=== PATIENT | male | born 1950 | race American Indian/Alaskan Native ===

== ENCOUNTER 2017-10-25 09:18 | Outpatient (CLI) | payer MEDICARE ==
--- NOTE | 2017-10-25 11:26 | XRay Report ---
FINAL REPORT EXAM: XR TOE(S) 2+V LT HISTORY: GREAT TOE PAIN COMPARISON: None. TECHNIQUE: Three views of the left great toe including a frontal view of the foot FINDINGS: There is no acute fracture or dislocation. There is DIP and PIP joint space narrowing with associated hypertrophic changes. There is no focal loss of bone mineral density. There is irregularities of the soft tissues of the dorsal aspect of the great toe concerning for injury. IMPRESSION: No acute bony abnormality of the left great toe. No radiographic evidence for osteomyelitis.
== END 2017-10-25 09:19 | disposition home or self-care (01) ==
LOC: XRAY 09:18
DX: M79.675 Pain in left toe(s) (principal); I10 Essential (primary) hypertension; E78.5 Hyperlipidemia, unspecified; E78.00 Pure hypercholesterolemia, unspecified; K21.9 Gastro-esophageal reflux disease without esophagitis; Z87.891 Personal history of nicotine dependence

== ENCOUNTER 2018-12-24 18:23 | Emergency (ER) | payer MEDICARE ==
--- NOTE | 2018-12-24 18:50 | Event Note ---
ED Screening Note Date of service: 12/24/18 Time: 18:50 ED Screening Note: c/o low back pain x 8 days and constipation x 3 days. Denies loss of bladder control. Denies specific back injury, but admits to a great deal of heayy lifting at work. States diclofenac and flexeril not helping. Hx of colon cancer. Denies abdominal pain This initial assessment/diagnostic orders/clinical plan/treatment(s) is/are subject to change based on patients health status, clinical progression and re-assessment by fellow clinical providers in the ED. Further treatment and workup at subsequent clinical providers discretion. Patient/guardian urged not to elope from the ED as their condition may be serious if not clinically assessed and managed. Initial orders include:
[2018-12-24] MEDS ORDERED: CATAPRES PO ONE (21:21)
[2018-12-24] MEDS ORDERED: TYLENOL #3 PO ONE (21:21)
[2018-12-24 21:59] VITALS: BP 223/113
[2018-12-24 21:59] LABS: Hematocrit 43.2 % (35.5-45.6); Hemoglobin 14.1 gm/dl (11.8-15.2); Mean Corpuscular HGB Conc 33 % (32-34); Mean Corpuscular Volume 93 fl (84-94); Platelet Count 651 K/mm3 (140-440); Red Blood Count 4.63 M/mm3 (3.65-5.03); Red Cell Distribution Width 19.7 % (13.2-15.2)
[2018-12-24 22:10] LABS: Albumin 4.1 g/dL (3.9-5); Calcium 9.5 mg/dL (8.4-10.2)
[2018-12-24] MEDS ORDERED: NACL 0.9% 1000 ML 1,000 ML IV ONE (22:31)
[2018-12-24] MEDS ORDERED: KIONEX PO ONE (22:32)
--- NOTE | 2018-12-24 22:38 | XRay Report ---
ABDOMEN 1 VIEW(S) INDICATION / CLINICAL INFORMATION: abd pain. COMPARISON: None available. FINDINGS: TUBES / LINES: None. BOWEL GAS PATTERN: No significant abnormality. FREE AIR / EXTRALUMINAL GAS: None seen. ADDITIONAL FINDINGS: There is moderate stool in the colon suggesting constipation. The colon is not d ilated however. IMPRESSION: 1. Possible constipation. Signer Name: Diogenes Bernard MD Signed: 12/24/2018 10:33 PM Workstation Name: [id number]
--- NOTE | 2018-12-24 23:57 | Emergency Department Report ---
ED Abdominal Pain HPI - General Chief Complaint: Back Pain/Injury Stated Complaint: BACK PAIN/CONSTIPATION Time Seen by Provider: 12/24/18 21:17 Source: patient Mode of arrival: Ambulatory Limitations: No Limitations - History of Present Illness Initial Comments: PT is a 68 y/o aam who presents for low back pain x 8 days and constipation x 3 days. Denies loss of bladder control. Denies specific back injury, but admits to a great deal of heayy lifting at work. States diclofenac and flexeril not helping as prescribed by pcp. Hx of colon cancer. Denies abdominal pain , endorses abd cramping and feeling constipated , last bm this morning described as "little rabbit pellets" Complaint: abdominal pain Onset/Timin -: week(s) Location: LLQ, RLQ Radiation: LLQ, RLQ Migration to: LLQ, RLQ Severity scale (0 -10): 7 Quality: cramping Consistency: intermittent Improves With: nothing Worsens With: nothing Context: other (constipation) Associated Symptoms: constipation. denies: nausea, vomiting, fever, chills, dysuria, melena - Related Data Home Medications Medication Instructions Recorded Confirmed Last Taken AtorvaSTATin [Lipitor] 10 mg PO DAILY 04/25/16 04/25/16 04/25/16 Blood Sugar Diagnostic [One Touch 1 each MC DAILY 04/25/16 04/25/16 04/25/16 Ultra Test Strips] Fluticasone Propionate [Flovent 50 mcg INNOSTRIL DAILY 04/25/16 04/25/16 04/25/16 Diskus] Insulin Glargine,Hum.rec.anlog 0 units SQ QHS 04/25/16 04/25/16 04/24/16 [Lantus Solostar] Insulin Lispro [Humalog Kwikpen 10 units SQ AC 04/25/16 04/25/16 04/24/16 200 UNITS/ML] Iron Fum,Ps/Folic/Bcomp,C No.9 1 each PO DAILY 04/25/16 04/25/16 04/25/16 [Integra Plus Capsule] Omeprazole 40 mg PO DAILY 04/25/16 04/25/16 04/25/16 Sildenafil Citrate [Viagra] 100 mg PO QDAY PRN 04/25/16 04/25/16 Unknown Sitagliptin Phosphate [Januvia] 50 mg PO DAILY 04/25/16 04/25/16 04/25/16 hydrALAZINE [Apresoline] 25 mg PO Q12HR 04/25/16 04/25/16 04/25/16 Previous Rx's Medication Instructions Recorded Last Taken Type Metoprolol [Lopressor TAB] 50 mg PO QDAY #30 tablet 07/29/13 04/25/16 Rx Aspirin 81 mg PO QDAY #30 tablet 04/26/16 Unknown Rx predniSONE [Deltasone] 60 mg PO QDAY 5 Days tablet 04/26/16 Unknown Rx valACYclovir [Valtrex] 1,000 mg PO TID 5 Days tablet 04/26/16 Unknown Rx Bisacodyl [Dulcolax suppos] 10 mg LA DAILY PRN #6 supp.rect 12/25/18 Unknown Rx Polyethylene Glycol 3350 [Miralax 17 gm PO BID PRN #14 packet 12/25/18 Unknown Rx 3350] amLODIPine [Norvasc] 10 mg PO DAILY #30 12/25/18 Unknown Rx Allergies Allergy/AdvReac Type Severity Reaction Status Date / Time No Known Allergies Allergy Verified 04/25/16 13:44 ED Review of Systems ROS: Stated complaint: BACK PAIN/CONSTIPATION Other details as noted in HPI Constitutional: denies: chills, fever Eyes: denies: eye pain, eye discharge, vision change ENT: denies: ear pain, throat pain Respiratory: denies: cough, shortness of breath, wheezing Cardiovascular: denies: chest pain, palpitations Endocrine: no symptoms reported Gastrointestinal: constipation. denies: nausea, vomiting, diarrhea, melena, hematochezia Genitourinary: denies: urgency, dysuria, frequency Musculoskeletal: back pain, arthralgia Skin: denies: rash, lesions Neurological: denies: headache, weakness, paresthesias Psychiatric: denies: anxiety, depression Hematological/Lymphatic: denies: easy bleeding, easy bruising ED Past Medical Hx - Past Medical History Previous Medical History?: Yes Hx Hypertension: Yes Hx Heart Attack/AMI: No Hx Congestive Heart Failure: No Hx Diabetes: Yes Hx Deep Vein Thrombosis: No Hx Pulmonary Embolism: No Hx GERD: No Hx Liver Disease: No Hx Renal Disease: No Hx Sickle Cell Disease: No Hx Arthritis: No Hx Seizures: No Hx Kidney Stones: No Hx Asthma: No Hx COPD: No Hx Tuberculosis: No Hx Dementia: No Hx HIV: No Additional medical history: COLON CANCER - Surgical History Hx Coronary Stent: No Hx Open Heart Surgery: No Hx Pacemaker: No Hx Internal Defibrillator: No Hx Cholecystectomy: No Hx Appendectomy: No Hx Breast Surgery: No Additional Surgical History: COLON REMOVED - Social History Smoking Status: Never Smoker Substance Use Type: Alcohol - Medications Home Medications: Home Medications Medication Instructions Recorded Confirmed Last Taken Type Metoprolol [Lopressor TAB] 50 mg PO QDAY #30 tablet 07/29/13 04/25/16 04/25/16 Rx AtorvaSTATin [Lipitor] 10 mg PO DAILY 04/25/16 04/25/16 04/25/16 History Blood Sugar Diagnostic [One Touch 1 each MC DAILY 04/25/16 04/25/16 04/25/16 History Ultra Test Strips] Fluticasone Propionate [Flovent 50 mcg INNOSTRIL DAILY 04/25/16 04/25/16 04/25/16 History Diskus] Insulin Glargine,Hum.rec.anlog 0 units SQ QHS 04/25/16 04/25/16 04/24/16 History [Lantus Solostar] Insulin Lispro [Humalog Kwikpen 10 units SQ AC 04/25/16 04/25/16 04/24/16 History 200 UNITS/ML] Iron Fum,Ps/Folic/Bcomp,C No.9 1 each PO DAILY 04/25/16 04/25/16 04/25/16 History [Integra Plus Capsule] Omeprazole 40 mg PO DAILY 04/25/16 04/25/16 04/25/16 History Sildenafil Citrate [Viagra] 100 mg PO QDAY PRN 04/25/16 04/25/16 Unknown History Sitagliptin Phosphate [Januvia] 50 mg PO DAILY 04/25/16 04/25/16 04/25/16 History hydrALAZINE [Apresoline] 25 mg PO Q12HR 04/25/16 04/25/16 04/25/16 History Aspirin 81 mg PO QDAY #30 tablet 04/26/16 Unknown Rx predniSONE [Deltasone] 60 mg PO QDAY 5 Days tablet 04/26/16 Unknown Rx valACYclovir [Valtrex] 1,000 mg PO TID 5 Days tablet 04/26/16 Unknown Rx Bisacodyl [Dulcolax suppos] 10 mg LA DAILY PRN #6 supp.rect 12/25/18 Unknown Rx Polyethylene Glycol 3350 [Miralax 17 gm PO BID PRN #14 packet 12/25/18 Unknown Rx 3350] amLODIPine [Norvasc] 10 mg PO DAILY #30 12/25/18 Unknown Rx ED Physical Exam - General Limitations: No Limitations General appearance: alert, in no apparent distress - Head Head exam: Present: atraumatic, normocephalic - Eye Eye exam: Present: normal appearance - ENT ENT exam: Present: mucous membranes moist - Neck Neck exam: Present: normal inspection, full ROM. Absent: tenderness, lymphadenopathy - Respiratory Respiratory exam: Present: normal lung sounds bilaterally. Absent: respiratory distress, wheezes, rales, rhonchi, stridor, chest wall tenderness - Cardiovascular Cardiovascular Exam: Present: regular rate, normal rhythm, normal heart sounds. Absent: systolic murmur, diastolic murmur, rubs, gallop - GI/Abdominal GI/Abdominal exam: Present: soft, distended (mild distention bilat Lower quad), normal bowel sounds. Absent: tenderness, guarding, rebound, rigid, bruit, hernia - Rectal Rectal exam: Present: deferred - Extremities Exam Extremities exam: Present: normal inspection, full ROM, normal capillary refill. Absent: tenderness, pedal edema - Back Exam Back exam: Present: normal inspection, full ROM. Absent: tenderness, CVA tenderness (R), CVA tenderness (L), rash noted - Neurological Exam Neurological exam: Present: alert, oriented X3, CN II-XII intact, normal gait, r eflexes normal. Absent: motor sensory deficit - Expanded Neurological Exam Expanded Patient oriented to: Present: person, place, time Speech: Present: fluid speech Cranial nerves: EOM's Intact: Normal, Gag Reflex: Normal, Tongue Deviation: Normal, Nystagmus: Normal, Facial Sensation: Normal Motor strength exam: RUE: 5, LUE: 5, RLE: 5, LLE: 5 DTR: ankle (R): 2+, ankle (L): 2+ Best Eye Response ([place]): (4) open spontaneously Best Motor Response (Estelita): (6) obeys commands Best Verbal Response (Estelita): (5) oriented [place] Total: 15 - Psychiatric Psychiatric exam: Present: normal affect, normal mood - Skin Skin exam: Present: warm, dry, intact, normal color. Absent: rash ED Course Vital Signs 12/24/18 12/24/18 12/24/18 18:36 21:58 21:59 Temperature 97.5 F L Pulse Rate 96 H 86 Respiratory 16 18 Rate Blood Pressure 211/105 223/113 O2 Sat by Pulse 96 Oximetry ED Medical Decision Making - Lab Data Result diagrams: 12/24/18 21:26 12/24/18 21:26 Labs 12/24/18 12/24/18 21:26 21:26 WBC 11.3 H RBC 4.63 Hgb 14.1 Hct 43.2 MCV 93 MCH 31 MCHC 33 RDW 19.7 H Plt Count 651 H Sodium 141 Potassium 5.3 H Chloride 106.9 Carbon Dioxide 22 Anion Gap 17 BUN 20 Creatinine 1.7 H Estimated GFR 48 BUN/Creatinine Ratio 12 Glucose 108 H Calcium 9.5 Total Bilirubin 0.40 AST 30 ALT 32 Alkaline Phosphatase 66 Total Protein 7.7 Albumin 4.1 Albumin/Globulin Ratio 1.1 Lipase 30 - Radiology Data Radiology results: report reviewed, image reviewed Findings [facility] [address] [place] [address] XRay Report Signed Patient: FREEMAN ZHOU MR#: [id number] : 1950 Acct:[id number] Age/Sex: 68 / M ADM Date: 12/24/18 Loc: ED Attending Dr: Ordering Physician: NILE DALE NP Date of Service: 12/24/18 Procedure(s): XR abdomen 1V ap Accession Number(s): [id number] cc: NILE DALE NP Fluoro Time In Minutes: ABDOMEN 1 VIEW(S) INDICATION / CLINICAL INFORMATION: abd pain. COMPARISON: None available. FINDINGS: TUBES / LINES: None. BOWEL GAS PATTERN: No significant abnormality. FREE AIR / EXTRALUMINAL GAS: None seen. ADDITIONAL FINDINGS: There is moderate stool in the colon suggesting constipation. The colon is not dilated however. IMPRESSION: 1. Possible constipation. Signer Name: Diogenes Bernard MD Signed: 12/24/2018 10:33 PM Workstation Name: [id number] Transcribed By: PAOLO Dictated By: Diogenes Brenard MD Electronically Authenticated By: Diogenes Bernard MD Signed Date/Time: 12/24/182232 DD/ 31 TD/TT: - Medical Decision Making KUB: moderate constipation, there is no cp no sob no n/v no diaphoresis, labs noted for K: 5.3, pt given NS 1 liter, and kayexalate 30 gm, has had moderate BM and abd cramping is resolved, plan, dc to home with rx for miralax, duclolax , pt will follow up with pcp in 2-3 days. Pt will return to ed if symptoms worsen or unable to have BM. Pt appers well nontoxic with nad at this time. Critical care attestation.: If time is entered above; I have spent that time in minutes in the direct care of this critically ill patient, excluding procedure time. ED Disposition Clinical Impression: Constipation Qualifiers: Constipation type: unspecified constipation type Qualified Code(s): K59.00 - Constipation, unspecified Disposition: DC-01 TO HOME OR SELFCARE Is pt being admited?: No Does the pt Need Aspirin: No Condition: Stable Instructions: Constipation (ED), High Fiber Diet (ED) Prescriptions: Bisacodyl [Dulcolax suppos] 10 mg LA DAILY PRN #6 supp.rect PRN Reason: Constipation Polyethylene Glycol 3350 [Miralax 3350] 17 gm PO BID PRN #14 packet PRN Reason: Constipation amLODIPine [Norvasc] 10 mg PO DAILY #30 Referrals: NATACHA BARRIOS MD [Staff Physician] - 3-5 Days Forms: Work/School Release Form(ED) Time of Disposition: 00:06
== END 2018-12-25 00:15 | disposition home or self-care (01) ==
LOC: ED 18:23
DX: M54.5 Low back pain (principal); K59.00 Constipation, unspecified; R10.31 Right lower quadrant pain; R10.32 Left lower quadrant pain
CPT/HCPCS: 36415; 74018; 80053; 83690; 85027; 99284; J7030

== ENCOUNTER 2020-04-05 10:49 | Inpatient (IN) | payer MEDICARE ==
--- NOTE | 2020-04-05 10:59 | Event Note ---
ED Screening Note ED Screening Note: cc sob sent by cards for admit no cp see paperwork sent by card This initial assessment/diagnostic orders/clinical plan/treatment(s) is/are subject to change based on patients health status, clinical progression and re- assessment by fellow clinical providers in the ED. Further treatment and workup at subsequent clinical providers discretion. Patient/guardian urged not to elope from the ED as their condition may be serious if not clinically assessed and managed. Initial orders include: admit per cards
--- NOTE | 2020-04-05 11:32 | XRay Report ---
CHEST 2 VIEWS INDICATION / CLINICAL INFORMATION: sob. COMPARISON: 10/15/2019 FINDINGS: SUPPORT DEVICES: None. HEART / MEDIASTINUM: Stable mild cardiomegaly. LUNGS / PLEURA: Moderate chronic elevation right hemidiaphragm. No significant pulmonary or pleural a bnormality. No pneumothorax. ADDITIONAL FINDINGS: No significant additional findings. IMPRESSION: 1. No acute findings. Signer Name: Jose Frost MD Signed: 04/05/2020 11:28 AM Workstation Name: [email or web address]
[2020-04-05 12:04] LABS: Hematocrit 24.1 % (35.5-45.6); Hemoglobin 7.2 gm/dl (11.8-15.2); Mean Corpuscular HGB Conc 30 % (32-34); Red Blood Count 3.57 M/mm3 (3.65-5.03)
[2020-04-05 12:05] LABS: Basophils # (Auto) 0.1 K/mm3 (0.0-0.1); Basophils % (Auto) 1.3 % (0.0-1.8); Eosinophils % (Auto) 9.6 % (0.0-4.3); Lymphocytes # (Auto) 1.4 K/mm3 (1.2-5.4); Lymphocytes % (Auto) 13.7 % (13.4-35.0); Mean Corpuscular Volume 68 fl (84-94); Monocytes # (Auto) 1.1 K/mm3 (0.0-0.8); Monocytes % (Auto) 10.6 % (0.0-7.3); Platelet Count 730 K/mm3 (140-440); Red Cell Distribution Width 23.8 % (13.2-15.2)
--- NOTE | 2020-04-05 12:05 | Emergency Department Report ---
ED General Adult HPI - General Chief complaint: Dyspnea/Respdistress Stated complaint: DIFFICULTY BREATHING PUI?: No Time Seen by Provider: 04/05/20 10:59 Source: patient, RN notes reviewed, old records reviewed Mode of arrival: Ambulatory Limitations: Physical Limitation - History of Present Illness Initial comments: The patient was evaluated in the emergency department for symptoms described in the history of present illness. He/she was evaluated in the context of the global COVID-19 pandemic, which necessitated consideration that the patient might be at risk for infection with the virus that causes COVID-19. Instituti onal protocols and algorithms that pertain to the evaluation of patients at risk for COVID-19 are in a state of rapid change based on information released by regulatory bodies including the CDC and federal and state organizations. These policies and algorithms were followed during the patient's care in the emergency department. Please note that these policies, procedures and recommendations changed on a rapid basis. Cardiology: [facility] cardiology Past medical history: Aortic valve stenosis, congestive heart failure, hypertension, heart disease with stent, cardiomyopathy, anemia of malignancy The patient is a pleasant 69-year-old gentleman. He is sent to the emergency room by his pet walker for admission. The patient complains of painless shortness of breath. This has been present for the past few days. He denies headache, neck pain, chest pain, abdominal pain. He denies hematemesis and bright red blood per rectum. He reports partial noncompliance with some of his diuretic therapy. He is not quite sure which medications he is taking or not taking. He denies travel, surgery, oral contraceptive use, leg pain, leg swelling. He denies loss of taste and smell. He denies urinary symptoms. He typically has 1-2 pillow chronic orthopnea. This is at baseline. However, he describes decreased exercise tolerance. -: Gradual, days(s) Consistency: intermittent Improves with: rest Worsens with: movement - Related Data Home Medications Medication Instructions Recorded Confirmed Last Taken Iron Fum,Ps/Folic/Bcomp,C No.9 1 each PO DAILY 04/25/16 10/18/19 04/25/16 [Integra Plus Capsule] Omeprazole 40 mg PO DAILY 04/25/16 10/18/19 04/25/16 Sildenafil Citrate [Viagra] 100 mg PO QDAY PRN 04/25/16 10/18/19 Unknown Sitagliptin Phosphate [Januvia] 50 mg PO DAILY 04/25/16 10/18/19 04/25/16 hydrALAZINE [Apresoline TAB] 25 mg PO Q12HR 04/25/16 10/18/19 04/25/16 Previous Rx's Medication Instructions Recorded Last Taken Type Aspirin 81 mg PO QDAY #30 tablet 04/26/16 Unknown Rx predniSONE [Deltasone] 60 mg PO QDAY 5 Days tablet 04/26/16 Unknown Rx valACYclovir [Valtrex] 1,000 mg PO TID 5 Days tablet 04/26/16 Unknown Rx bisacodyL [Dulcolax suppos] 10 mg [place] DAILY PRN #6 supp.rect 12/25/18 Unknown Rx Aspirin EC [Halfprin EC] 81 mg PO QDAY #30 tablet 10/22/19 Unknown Rx AtorvaSTATin [Lipitor] 40 mg PO QHS #30 tablet 10/22/19 Unknown Rx Clopidogrel [Plavix] 75 mg PO QDAY #30 tablet 10/22/19 Unknown Rx Dorzolamide HCl/Timolol Maleat 10 ml OP Q12HR 30 Days drops 10/22/19 Unknown Rx [Cosopt Eye Drops] Doxazosin [Cardura] 2 mg PO QHS #30 tablet 10/22/19 Unknown Rx Isosorb Dinit/Hydralazine [Bidil 1 each PO Q8HR #30 tablet 10/22/19 Unknown Rx 20/37.5MG] Metoprolol [Lopressor TAB] 50 mg PO BID #60 tablet 10/22/19 Unknown Rx NIFEdipine XL [Procardia Xl] 60 mg PO QDAY #30 tablet 10/22/19 Unknown Rx cephALEXin [Keflex] 500 mg PO Q12HR #10 cap 10/22/19 Unknown Rx Allergies Allergy/AdvReac Type Severity Reaction Status Date / Time No Known Allergies Allergy Verified 04/05/20 10:58 ED Review of Systems ROS: Stated complaint: DIFFICULTY BREATHING Other details as noted in HPI Constitutional: malaise. denies: fever Eyes: denies: eye discharge ENT: congestion Respiratory: orthopnea Cardiovascular: dyspnea on exertion, orthopnea. denies: chest pain Gastrointestinal: denies: abdominal pain, nausea, vomiting, hematemesis, melena, hematochezia Genitourinary: denies: urgency Musculoskeletal: denies: back pain Neurological: weakness. denies: headache Hematological/Lymphatic: denies: easy bleeding ED Past Medical Hx - Past Medical History Hx Hypertension: Yes Hx Heart Attack/AMI: No Hx Congestive Heart Failure: No Hx Diabetes: Yes Hx Deep Vein Thrombosis: No Hx Pulmonary Embolism: No Hx GERD: No Hx Liver Disease: No Hx Renal Disease: No Hx Sickle Cell Disease: No Hx Arthritis: No Hx Seizures: No Hx Kidney Stones: No Hx Asthma: No Hx COPD: No Hx Tuberculosis: No Hx Dementia: No Hx HIV: No Additional medical history: COLON CANCER/ANEMIA/ULCER - Surgical History Hx Coronary Stent: No Hx Open Heart Surgery: No Hx Pacemaker: No Hx Internal Defibrillator: No Hx Cholecystectomy: No Hx Appendectomy: No Hx Breast Surgery: No Additional Surgical History: COLON REMOVED - Social History Smoking Status: Never Smoker Substance Use Type: None - Medications Home Medications: Home Medications Medication Instructions Recorded Confirmed Last Taken Type Iron Fum,Ps/Folic/Bcomp,C No.9 1 each PO DAILY 04/25/16 10/18/19 04/25/16 History [Integra Plus Capsule] Omeprazole 40 mg PO DAILY 04/25/16 10/18/19 04/25/16 History Sildenafil Citrate [Viagra] 100 mg PO QDAY PRN 04/25/16 10/18/19 Unknown History Sitagliptin Phosphate [Januvia] 50 mg PO DAILY 04/25/16 10/18/19 04/25/16 History hydrALAZINE [Apresoline TAB] 25 mg PO Q12HR 04/25/16 10/18/19 04/25/16 History Aspirin 81 mg PO QDAY #30 tablet 04/26/16 10/18/19 Unknown Rx predniSONE [Deltasone] 60 mg PO QDAY 5 Days tablet 04/26/16 10/18/19 Unknown Rx valACYclovir [Valtrex] 1,000 mg PO TID 5 Days tablet 04/26/16 10/18/19 Unknown Rx bisacodyL [Dulcolax suppos] 10 mg AL DAILY PRN #6 supp.rect 12/25/18 10/18/19 Unknown Rx Aspirin EC [Halfprin EC] 81 mg PO QDAY #30 tablet 10/22/19 Unknown Rx AtorvaSTATin [Lipitor] 40 mg PO QHS #30 tablet 10/22/19 Unknown Rx Clopidogrel [Plavix] 75 mg PO QDAY #30 tablet 10/22/19 Unknown Rx Dorzolamide HCl/Timolol Maleat 10 ml OP Q12HR 30 Days drops 10/22/19 Unknown Rx [Cosopt Eye Drops] Doxazosin [Cardura] 2 mg PO QHS #30 tablet 10/22/19 Unknown Rx Isosorb Dinit/Hydralazine [Bidil 1 each PO Q8HR #30 tablet 10/22/19 Unknown Rx 20/37.5MG] Metoprolol [Lopressor TAB] 50 mg PO BID #60 tablet 10/22/19 Unknown Rx NIFEdipine XL [Procardia Xl] 60 mg PO QDAY #30 tablet 10/22/19 Unknown Rx cephALEXin [Keflex] 500 mg PO Q12HR #10 cap 10/22/19 Unknown Rx ED Physical Exam - General Limitations: No Limitations General appearance: alert, in no apparent distress - Head Head exam: Present: atraumatic, normocephalic - Eye Eye exam: Present: normal appearance, EOMI. Absent: nystagmus - ENT ENT exam: Present: normal exam, normal orophraynx, mucous membranes moist, normal external ear exam - Neck Neck exam: Present: normal inspection, full ROM. Absent: tenderness, me ningismus - Respiratory Respiratory exam: Present: rales (Faint rales appreciated at the bases). Absent: respiratory distress, wheezes, rhonchi, stridor - Cardiovascular Cardiovascular Exam: Present: regular rate, normal rhythm, systolic murmur, JVD. Absent: bradycardia, tachycardia, irregular rhythm, diastolic murmur, rubs, gallop - GI/Abdominal GI/Abdominal exam: Present: soft. Absent: distended, tenderness, guarding, rebound, rigid, pulsatile mass - Rectal Rectal exam: Present: deferred - Extremities Exam Extremities exam: Present: normal inspection, full ROM, pedal edema (1+ edema noted in the bilateral lower extremity), other (2+ pulses noted in the bilateral upper and lower extremities. There is no palpable cord. negative Homans sign. Muscular compartments are soft. The pelvis is stable.). Absent: calf tenderness - Back Exam Back exam: Present: normal inspection, full ROM. Absent: tenderness, CVA tenderness (R), CVA tenderness (L), paraspinal tenderness, vertebral tenderness - Neurological Exam Neurological exam: Present: alert, normal gait, other (No facial droop. Tongue midline. Extraocular movements intact bilaterally. Facial sensation intact to light touch in V1, V2, V3 distribution bilaterally. 5 and a 5 strength in 4 extremities. Sensation intact to light touch in 4 extremities.). Absent: motor sensory deficit - Psychiatric Psychiatric exam: Present: flat affect - Skin Skin exam: Present: warm, dry, intact, normal color. Absent: rash ED Course Vital Signs 04/05/20 04/05/20 11:01 12:29 Temperature 98.7 F Pulse Rate 91 H 88 Respiratory 22 16 Rate Blood Pressure 154/94 Blood Pressure 198/118 [Left] O2 Sat by Pulse 98 98 Oximetry ED Medical Decision Making - Lab Data Result diagrams: 04/05/20 11:34 04/05/20 11:34 Vital Signs 04/05/20 04/05/20 11:01 12:29 Temperature 98.7 F Pulse Rate 91 H 88 Respiratory 22 16 Rate Blood Pressure 154/94 Blood Pressure 198/118 [Left] O2 Sat by Pulse 98 98 Oximetry Lab Results 04/05/20 04/05/20 04/05/20 Range/Units 11:34 11:34 11:34 WBC 10.1 (4.5-11.0) K/mm3 RBC 3.57 L (3.65-5.03) M/mm3 Hgb 7.2 L (11.8-15.2) gm/dl Hct 24.1 L (35.5-45.6) % MCV 68 L (84-94) fl MCH 20 L (28-32) pg MCHC 30 L (32-34) % RDW 23.8 H (13.2-15.2) % Plt Count 730 H (140-440) K/mm3 Lymph % (Auto) 13.7 (13.4-35.0) % [place] % (Auto) 10.6 H (0.0-7.3) % Eos % (Auto) 9.6 H (0.0-4.3) % Baso % (Auto) 1.3 (0.0-1.8) % Lymph # (Auto) 1.4 (1.2-5.4) K/mm3 [place] # (Auto) 1.1 H (0.0-0.8) K/mm3 Eos # (Auto) 1.0 H (0.0-0.4) K/mm3 Baso # (Auto) 0.1 (0.0-0.1) K/mm3 Seg Neutrophils % 64.8 (40.0-70.0) % Seg Neutrophils # 6.5 (1.8-7.7) K/mm3 PT 15.6 H (12.2-14.9) Sec. INR 1.24 H (0.87-1.13) APTT 34.0 (24.2-36.6) Sec. Sodium 137 (137-145) mmol/L Potassium 4.7 (3.6-5.0) mmol/L Chloride 107.3 H (98-107) mmol/L Carbon Dioxide 26 (22-30) mmol/L Anion Gap 8 mmol/L BUN 18 (9-20) mg/dL Creatinine 1.7 H (0.8-1.3) mg/dL Estimated GFR 48 ml/min BUN/Creatinine Ratio 11 % Glucose 104 H (75-100) mg/dL Calcium 9.8 (8.4-10.2) mg/dL Magnesium (1.7-2.3) mg/dL Total Bilirubin 0.50 (0.1-1.2) mg/dL AST 20 (5-40) units/L ALT 14 (7-56) units/L Alkaline Phosphatase 71 (35-129) units/L Total Creatine Kinase 232 H (55-170) units/L CK-MB (CK-2) 7.9 H (0.0-4.0) ng/mL CK-MB (CK-2) Rel Index 3.4 (0-4) Troponin T 0.055 H (0.00-0.029) ng/mL NT-Pro-B Natriuret Pep (0-900) pg/mL Total Protein 7.3 (6.3-8.2) g/dL Albumin 4.1 (3.9-5) g/dL Albumin/Globulin Ratio 1.3 % Triglycerides 95 (2-149) mg/dL Cholesterol 161 (50-199) mg/dL LDL Cholesterol Direct 111 (50-130) mg/dL HDL Cholesterol 44 (40-59) mg/dL Cholesterol/HDL Ratio 3.65 % 04/05/20 04/05/20 Range/Units 11:34 11:40 WBC (4.5-11.0) K/mm3 RBC (3.65-5.03) M/mm3 Hgb (11.8-15.2) gm/dl Hct (35.5-45.6) % MCV (84-94) fl MCH (28-32) pg MCHC (32-34) % RDW (13.2-15.2) % Plt Count (140-440) K/mm3 Lymph % (Auto) (13.4-35.0) % [place] % (Auto) (0.0-7.3) % Eos % (Auto) (0.0-4.3) % Baso % (Auto) (0.0-1.8) % Lymph # (Auto) (1.2-5.4) K/mm3 [place] # (Auto) (0.0-0.8) K/mm3 Eos # (Auto) (0.0-0.4) K/mm3 Baso # (Auto) (0.0-0.1) K/mm3 Seg Neutrophils % (40.0-70.0) % Seg Neutrophils # (1.8-7.7) K/mm3 PT (12.2-14.9) Sec. INR (0.87-1.13) APTT (24.2-36.6) Sec. Sodium (137-145) mmol/L Potassium (3.6-5.0) mmol/L Chloride (98-107) mmol/L Carbon Dioxide (22-30) mmol/L Anion Gap mmol/L BUN (9-20) mg/dL Creatinine (0.8-1.3) mg/dL Estimated GFR ml/min BUN/Creatinine Ratio % Glucose (75-100) mg/dL Calcium (8.4-10.2) mg/dL Magnesium 1.90 (1.7-2.3) mg/dL Total Bilirubin (0.1-1.2) mg/dL AST (5-40) units/L ALT (7-56) units/L Alkaline Phosphatase (35-129) units/L Total Creatine Kinase 232 H (55-170) units/L CK-MB (CK-2) (0.0-4.0) ng/mL CK-MB (CK-2) Rel Index (0-4) Troponin T (0.00-0.029) ng/mL NT-Pro-B Natriuret Pep 1809 H (0-900) pg/mL Total Protein (6.3-8.2) g/dL Albumin (3.9-5) g/dL Albumin/Globulin Ratio % Triglycerides (2-149) mg/dL Cholesterol (50-199) mg/dL LDL Cholesterol Direct (50-130) mg/dL HDL Cholesterol (40-59) mg/dL Cholesterol/HDL Ratio % - EKG Data -: EKG Interpreted by Pr EKG shows normal: sinus rhythm Rate: normal - EKG Data 04/05/20 14:12 Sinus rhythm, 94 bpm. Left axis deviation, left anterior fascicular block. Right bundle branch block noted. Abnormal EKG. Not a STEMI. Unchanged from prior. - Radiology Data Radiology results: pending, report reviewed, image reviewed CHEST 2 VIEWS INDICATION / CLINICAL INFORMATION: sob. COMPARISON: 10/15/2019 FINDINGS: SUPPORT DEVICES: None. HEART / MEDIASTINUM: Stable mild cardiomegaly. LUNGS / PLEURA: Moderate chronic elevation right hemidiaphragm. No significant pulmonary or pleural abnormality. No pneumothorax. ADDITIONAL FINDINGS: No significant additional findings. IMPRESSION: 1. No acute findings. Signer Name: Jose Frost MD Signed: 04/05/2020 10:28 AM Workstation Name: [id number] - Medical Decision Making Differential diagnosis, including but not limited to: Congestive heart failure, hypertensive cardiomyopathy, cardiorenal syndrome, symptomatic anemia Assessment and plan: 69-year-old gentleman, with history of shortness of breath, without history of surgery, posterior leg pain and leg swelling, without hematemesis, bright red blood per rectum, chronic anemia, found to be worsening, also failed exercise tolerance test, with trial of ambulation, desaturated to 91, 92% on room air, and could not complete trial of ambulation. Troponin elevated, likely a type II troponin leak. Elevated BNP is appreciated. Patient meets criteria for hospitalization secondary to acute hypoxic respiratory failure, which is likely multifactorial. We will start Lasix therapy, administer 1 unit of packed red blood cells. We will also administer aspirin therapy. Contacted covering cardiology, Adelaida Duval, agreeing with plan of care, cardiology will follow in consultation. Hospital physician, Dr. Daniel Armijo to admit Will defer to inpatient team to further work-up and evaluate acute on chronic anemia. as a patient with known ischemic heart disease, BUDDY globin of 10 is typically recommended. Critical Care Time: Yes Critical care time in (mins) excluding proc time.: 35 Critical care attestation.: If time is entered above; I have spent that time in minutes in the direct care of this critically ill patient, excluding procedure time. ED Disposition Clinical Impression: CHF (congestive heart failure), Elevated troponin, Anemia Disposition: OP ADMIT IP TO THIS HOSP Is pt being admited?: Yes Does the pt Need Aspirin: No Condition: Fair Referrals: PRIMARY CARE,MD [Primary Care Provider] - 3-5 Days Heart Score - HEART Score History: Slightly suspicious EKG: Non-specific Age: > 65 Risk factors: > 3 risk factors or hx of atherosclerotic disease Troponin: 1-3x normal limit HEART Score: 6 - Critical Actions Critical Actions: 4-6 pts:12-16.6% risk of adverse cardiac event. Should be admitted
[2020-04-05 12:14] LABS: INR 1.24 (0.87-1.13)
[2020-04-05 12:25] LABS: Creatine Kinase MB 7.9 ng/mL (0.0-4.0)
[2020-04-05 12:26] LABS: Albumin 4.1 g/dL (3.9-5); Calcium 9.8 mg/dL (8.4-10.2)
[2020-04-05 12:38] LABS: Chol/HDL Ratio 3.65 %
[2020-04-05] MEDS ORDERED: FUROSEMIDE 20 MG/2 ML INJ IV ONE (13:05)
[2020-04-05] MEDS ORDERED: ASPIRIN 81 MG TAB CHEW PO ONE (13:05)
[2020-04-05] MEDS ORDERED: SODIUM CHLORIDE 0.9% 500 ML 500 ML IV ONE (13:07)
[2020-04-05] MEDS ORDERED: MAGNESIUM HYDROXIDE (MOM) ORAL LIQD UDC PO PRN (14:29)
[2020-04-05] MEDS ORDERED: ONDANSETRON 4 MG/2 ML INJ IV PRN (14:29)
[2020-04-05] MEDS ORDERED: DEXTROSE 50% IN WATER (25GM) 50 ML SYRINGE IV PRN (14:29)
[2020-04-05] MEDS ORDERED: ACETAMINOPHEN 325 MG TAB PO PRN (14:29)
--- NOTE | 2020-04-05 14:38 | History and Physical Report ---
History of Present Illness Date of examination: 04/05/20 Date of admission: 04/05/2020 Chief complaint: Shortness of breath History of present illness: 69-year-old male with known history of congestive heart failure, hypertension, aortic valve stenosis, cardiomyopathy, cardiac heart stents and anemia sent to the emergency room today from [facility] for evaluation of shortness of breath. Shortness of breath is said to have been ongoing for the past few days. He denies any chest pain, no nausea vomiting, no fever or chills, no headache or dizziness. Patient admits that he has not been quite compliant with his diuretic. Denies any swelling in his lower extremities. However he has had some orthopnea and has also had decreased exercise tolerance. Upon arrival in the emergency room patient was slightly hypoxic. Work-up in the emergency room today reveals elevated BNP, he was anemic with hemoglobin of 7. Mildly elevated troponin. Chest x-ray shows mild cardiomegaly. Patient is being admitted for CHF exacerbation, hypoxia and anemia. Past History Past Medical History: diabetes, heart failure, hypertension, other (History of colon cancer, anemia, aortic stenosis, cardiomyopathy) Past Surgical History: PTCA, Other (Colon surgery) Social history: no significant social history Family history: no significant family history Medications and Allergies Allergies Allergy/AdvReac Type Severity Reaction Status Date / Time No Known Allergies Allergy Verified 04/05/20 10:58 Home Medications Medication Instructions Recorded Confirmed Last Taken Type Iron Fum,Ps/Folic/Bcomp,C No.9 1 each PO DAILY 04/25/16 10/18/19 04/25/16 History [Integra Plus Capsule] Omeprazole 40 mg PO DAILY 04/25/16 10/18/19 04/25/16 History Sildenafil Citrate [Viagra] 100 mg PO QDAY PRN 04/25/16 10/18/19 Unknown History Sitagliptin Phosphate [Januvia] 50 mg PO DAILY 04/25/16 10/18/19 04/25/16 History hydrALAZINE [Apresoline TAB] 25 mg PO Q12HR 04/25/16 10/18/19 04/25/16 History Aspirin 81 mg PO QDAY #30 tablet 04/26/16 10/18/19 Unknown Rx predniSONE [Deltasone] 60 mg PO QDAY 5 Days tablet 02/18/17 08/11/20 Unknown Rx valACYclovir [Valtrex] 1,000 mg PO TID 5 Days tablet 04/26/16 10/18/19 Unknown Rx bisacodyL [Dulcolax suppos] 10 mg [place] DAILY PRN #6 supp.rect 12/25/18 10/18/19 Unknown Rx Aspirin EC [Halfprin EC] 81 mg PO QDAY #30 tablet 10/22/19 Unknown Rx AtorvaSTATin [Lipitor] 40 mg PO QHS #30 tablet 10/22/19 Unknown Rx Clopidogrel [Plavix] 75 mg PO QDAY #30 tablet 10/22/19 Unknown Rx Dorzolamide HCl/Timolol Maleat 10 ml OP Q12HR 30 Days drops 10/22/19 Unknown Rx [Cosopt Eye Drops] Doxazosin [Cardura] 2 mg PO QHS #30 tablet 10/22/19 Unknown Rx Isosorb Dinit/Hydralazine [Bidil 1 each PO Q8HR #30 tablet 10/22/19 Unknown Rx 20/37.5MG] Metoprolol [Lopressor TAB] 50 mg PO BID #60 tablet 10/22/19 Unknown Rx NIFEdipine XL [Procardia Xl] 60 mg PO QDAY #30 tablet 10/22/19 Unknown Rx cephALEXin [Keflex] 500 mg PO Q12HR #10 cap 10/22/19 Unknown Rx Active Meds: Active Medications Acetaminophen (Acetaminophen 325 Mg Tab) 650 mg PO Q4H PRN PRN Reason: Pain MILD(1-3)/Fever >100.5/HENRY Dextrose (Dextrose 50% In Water (25gm) 50 Ml Syringe) 50 ml IV Q30MIN PRN; Pr otocol PRN Reason: Hypoglycemia Furosemide (Furosemide 40 Mg/4 Ml Inj) 40 mg IV BID@0600,1800 [facility] Insulin Human Regular (Insulin Regular, Human 100 Units/1 Ml) 0 units SUB-Q ACHS TREY; Protocol Magnesium Hydroxide (Magnesium Hydroxide (Mom) Oral Liqd Udc) 30 ml PO Q4H PRN PRN Reason: Constipation Ondansetron HCl (Ondansetron 4 Mg/2 Ml Inj) 4 mg IV Q8H PRN PRN Reason: Nausea And Vomiting Sodium Chloride (Sodium Chloride 0.9% 10 Ml Flush Syringe) 10 ml IV BID TREY Sodium Chloride (Sodium Chloride 0.9% 10 Ml Flush Syringe) 10 ml IV PRN PRN PRN Reason: LINE FLUSH Review of Systems Constitutional: no fever, no chills Ears, nose, mouth and throat: no nasal congestion, no sore throat Cardiovascular: orthopnea, no chest pain, no palpitations Respiratory: cough, shortness of breath, no wheezing Gastrointestinal: no abdominal pain, no nausea, no vomiting, no diarrhea Genitourinary Male: no dysuria, no hematuria, no flank pain Musculoskeletal: no neck pain, no low back pain Integumentary: no rash, no pruritis Neurological: no headaches, no confusion Psychiatric: no anxiety, no depression Exam - Constitutional Vitals: Temp Pulse Resp BP Pulse Ox 98.7 F 88 16 198/118 98 04/05/20 11:04/05/20 12:29 04/05/20 12:29 04/05/20 12:04/05/20 12:29 General appearance: Present: no acute distress, well-nourished - EENT Eyes: Present: PERRL, EOM intact. Absent: scleral icterus ENT: hearing intact, clear oral mucosa, dentition normal - Neck Neck: Present: supple, normal ROM - Respiratory Respiratory effort: normal Respiratory: bilateral: CTA - Cardiovascular Rhythm: regular Heart Sounds: Present: S1 & S2. Absent: gallop, systolic murmur, diastolic murmur, rub - Extremities Extremities: no ischemia, pulses intact, pulses symmetrical, No edema, normal temperature, normal color, Full ROM Peripheral Pulses: within normal limits - Abdominal General gastrointestinal: Present: soft, non-tender, non-distended, normal bowel sounds. Absent: mass - Integumentary Integumentary: Present: clear, warm, dry. Absent: rash - Musculoskeletal Musculoskeletal: strength equal bilaterally - Psychiatric Psychiatric: appropriate mood/affect, intact judgment & insight, memory intact, cooperative - Neurologic Neurologic: CNII-XII intact, no focal deficits, moves all extremities HEART Score - HEART Score EKG: Non-specific Age: > 65 Risk factors: > 3 risk factors or hx of atherosclerotic disease Troponin: Troponin T 0.055 ng/mL (0.00-0.029) H 04/05/20 11:34 Troponin: 1-3x normal limit - Critical Actions Critical Actions: 4-6 pts:12-16.6% risk of adverse cardiac event. Should be admitted Results - Labs CBC & Chem 7: 04/05/20 11:34 04/05/20 11:34 Labs: Abnormal lab results 04/05/20 04/05/20 04/05/20 Range/Units 11:34 11:34 11:34 RBC 3.57 L (3.65-5.03) M/mm3 Hgb 7.2 L (11.8-15.2) gm/dl Hct 24.1 L (35.5-45.6) % MCV 68 L (84-94) fl MCH 20 L (28-32) pg MCHC 30 L (32-34) % RDW 23.8 H (13.2-15.2) % Plt Count 730 H (140-440) K/mm3 [place] % (Auto) 10.6 H (0.0-7.3) % Eos % (Auto) 9.6 H (0.0-4.3) % [place] # (Auto) 1.1 H (0.0-0.8) K/mm3 Eos # (Auto) 1.0 H (0.0-0.4) K/mm3 PT 15.6 H (12.2-14.9) Sec. INR 1.24 H (0.87-1.13) Chloride 107.3 H (98-107) mmol/L Creatinine 1.7 H (0.8-1.3) mg/dL Glucose 104 H (75-100) mg/dL Total Creatine Kinase 232 H (55-170) units/L CK-MB (CK-2) 7.9 H (0.0-4.0) ng/mL Troponin T 0.055 H (0.00-0.029) ng/mL NT-Pro-B Natriuret Pep (0-900) pg/mL 04/05/20 04/05/20 Range/Units 11:34 11:40 RBC (3.65-5.03) M/mm3 Hgb (11.8-15.2) gm/dl Hct (35.5-45.6) % MCV (84-94) fl MCH (28-32) pg MCHC (32-34) % RDW (13.2-15.2) % Plt Count (140-440) K/mm3 [place] % (Auto) (0.0-7.3) % Eos % (Auto) (0.0-4.3) % [place] # (Auto) (0.0-0.8) K/mm3 Eos # (Auto) (0.0-0.4) K/mm3 PT (12.2-14.9) Sec. INR (0.87-1.13) Chloride (98-107) mmol/L Creatinine (0.8-1.3) mg/dL Glucose (75-100) mg/dL Total Creatine Kinase 232 H (55-170) units/L CK-MB (CK-2) (0.0-4.0) ng/mL Troponin T (0.00-0.029) ng/mL NT-Pro-B Natriuret Pep 1809 H (0-900) pg/mL Assessment and Plan - Patient Problems (1) CHF (congestive heart failure) Current Visit: Yes Status: Acute Qualifiers: Plan to address problem: Patient admitted to telemetry. He has been started on diuretics. Will monitor inputs and output and also monitor daily weight. Patient will be scheduled for echocardiogram. We will place consult to cardiology for evaluation. (2) Anemia Current Visit: Yes Status: Acute Plan to address problem: Possibly chronic. We will monitor CBC. Patient will be transfused with PRBC as needed (3) Diabetes mellitus Current Visit: No Status: Acute Plan to address problem: We will monitor Accu-Cheks for good glycemic control. (4) Hypertension Current Visit: No Status: Acute Qualifiers: Hypertension type: essential hypertension Qualified Code(s): I10 - Essential (primary) hypertension Plan to address problem: We will resume routine home medications and monitor vital signs closely. (5) Elevated troponin Current Visit: Yes Status: Acute Plan to address problem: Possibly related to the chronic kidney disease and anemia. We will monitor troponin level. We await further recommendations from cardiology. (6) DVT prophylaxis Current Visit: No Status: Acute Plan to address problem: Patient placed on subcutaneous heparin. (7) Full code status Current Visit: Yes Status: Acute Plan to address problem: Patient is a full code.
[2020-04-05] MEDS ORDERED: SODIUM CHLORIDE 0.9% 500 ML 500 ML ONE (17:00)
[2020-04-05] MEDS: INSULIN REGULAR, HUMAN 100 UNITS/1 ML SUB-Q SCH ×2 (17:17→22:25)
[2020-04-05] MEDS: FUROSEMIDE 40 MG/4 ML INJ IV SCH (17:18)
[2020-04-05 18:46] LABS: RBC,Urine < 1.0 /HPF (0.0-6.0); WBC,Urine < 1.0 /HPF (0.0-6.0)
[2020-04-05 18:47] LABS: Bilirubin,Urine NEG (Negative); Blood,Urine SM (Negative); Color,Urine Colorless (Yellow); Urobilinogen,Urine < 2.0 mg/dL (<2.0)
[2020-04-05] MEDS ORDERED: hydrALAZINE 20 MG/1 ML INJ IV ONE (20:00)
[2020-04-05] MEDS: HEPARIN 5,000 UNIT/1 ML VIAL SUB-Q SCH (21:03)
[2020-04-05] MEDS: ISOSORB DINIT/HYDRALAZINE 20-37.5MG TAB PO SCH (21:03)
[2020-04-05] MEDS: DOXAZOSIN 1 MG TAB PO SCH (21:03)
[2020-04-05] MEDS ORDERED: hydrALAZINE 25 MG TAB PO SCH (22:00)
[2020-04-05] MEDS ORDERED: NON-FORMULARY EACH (Dorzolamide Hcl/Timolol Maleat [Cosopt Eye Drops] 10 ML Drops) OP SCH (22:00)
[2020-04-06 01:20] LABS: Hematocrit 25.5 % (35.5-45.6); Hemoglobin 7.5 gm/dl (11.8-15.2)
[2020-04-06] MEDS: FUROSEMIDE 40 MG/4 ML INJ IV SCH ×2 (06:05→19:02)
[2020-04-06] MEDS: HEPARIN 5,000 UNIT/1 ML VIAL SUB-Q SCH ×3 (06:05→21:27)
[2020-04-06] MEDS: ISOSORB DINIT/HYDRALAZINE 20-37.5MG TAB PO SCH ×3 (06:05→21:27)
[2020-04-06 06:07] LABS: Hemoglobin 7.5 gm/dl (11.8-15.2); Mean Corpuscular HGB Conc 30 % (32-34); Mean Corpuscular Volume 70 fl (84-94); Platelet Count 692 K/mm3 (140-440); Red Blood Count 3.55 M/mm3 (3.65-5.03)
[2020-04-06 06:09] LABS: Calcium 9.5 mg/dL (8.4-10.2)
[2020-04-06 06:10] LABS: INR 1.28 (0.87-1.13)
[2020-04-06 06:22] LABS: Red Cell Distribution Width 26.8 % (13.2-15.2)
[2020-04-06 07:08] LABS: Total Cells Counted 100
[2020-04-06 07:09] LABS: Anisocytosis 3+; Hypochromasia 2+
[2020-04-06 07:10] LABS: Platelet Estimate Consistent w Auto
[2020-04-06] MEDS: MULTIVITAMINS,THER W-MINERALS TAB PO SCH (09:59)
[2020-04-06] MEDS: CLOPIDOGREL 75 MG TAB PO SCH (09:59)
[2020-04-06] MEDS: SPIRONOLACTONE 25 MG TAB PO SCH (09:59)
[2020-04-06] MEDS: INSULIN REGULAR, HUMAN 100 UNITS/1 ML SUB-Q SCH ×4 (09:59→21:29)
[2020-04-06] MEDS: carvediloL 6.25 MG TAB PO SCH ×2 (09:59→21:27)
[2020-04-06] MEDS ORDERED: NON-FORMULARY EACH (Iron Fum,Ps/Folic/Bcomp,C No.9 [Integra Plus Capsule] 1 EACH Capsule) PO SCH (10:00)
[2020-04-06] MEDS: ASPIRIN EC 81 MG TAB PO SCH (10:00)
--- NOTE | 2020-04-06 10:39 | Consultation ---
History of Present Illness Consult date: 04/06/20 Consult reason: congestive heart failure History of present illness: Patient is a 68-year old M with a history of coronary artery disease and dilated cardiomyopathy, EF 25%. 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 He complained of progressive shortness of breath and referred to the emergency department for evaluation. On presentation, he was found with marked anemia, HCT of 24.1 and while in the emergency department the patient was transfused a unit of PRBCs. A cardiac consultation was requested for CHF. Chest x-ray was negative, no evidence of interstitial edema. Patient report since his treatment in the emergency department his breathing is better. He denies chest pain, and denies dizziness. There is no lower extremity edema. An ECG is sinus rhythm, RBBB and LAFB, unchanged from prior. Past History Past Medical History: CAD, diabetes, heart failure, hypertension, other (History of colon cancer, anemia) Past Surgical History: PTCA, Other (Colon surgery) Social history: no significant social history Family history: no significant family history Medications and Allergies Allergies Allergy/AdvReac Type Severity Reaction Status Date / Time No Known Allergies Allergy Verified 04/05/20 10:58 Home Medications Medication Instructions Recorded Confirmed Last Taken Type Iron Fum,Ps/Folic/Bcomp,C No.9 1 each PO DAILY 04/25/16 10/18/19 04/25/16 History [Integra Plus Capsule] Omeprazole 40 mg PO DAILY 04/25/16 10/18/19 04/25/16 History Sildenafil Citrate [Viagra] 100 mg PO QDAY PRN 04/25/16 10/18/19 Unknown History Sitagliptin Phosphate [Januvia] 50 mg PO DAILY 04/25/16 10/18/19 04/25/16 H istory hydrALAZINE [Apresoline TAB] 25 mg PO Q12HR 04/25/16 10/18/19 04/25/16 History Aspirin 81 mg PO QDAY #30 tablet 04/26/16 10/18/19 Unknown Rx predniSONE [Deltasone] 60 mg PO QDAY 5 Days tablet 04/26/16 10/18/19 Unknown Rx valACYclovir [Valtrex] 1,000 mg PO TID 5 Days tablet 04/26/16 10/18/19 Unknown Rx bisacodyL [Dulcolax suppos] 10 mg NE DAILY PRN #6 supp.rect 12/25/18 10/18/19 Unknown Rx Aspirin EC [Halfprin EC] 81 mg PO QDAY #30 tablet 10/22/19 Unknown Rx AtorvaSTATin [Lipitor] 40 mg PO QHS #30 tablet 10/22/19 Unknown Rx Clopidogrel [Plavix] 75 mg PO QDAY #30 tablet 10/22/19 Unknown Rx Dorzolamide HCl/Timolol Maleat 10 ml OP Q12HR 30 Days drops 10/22/19 Unknown Rx [Cosopt Eye Drops] Doxazosin [Cardura] 2 mg PO QHS #30 tablet 10/22/19 Unknown Rx Isosorb Dinit/Hydralazine [Bidil 1 each PO Q8HR #30 tablet 10/22/19 Unknown Rx 20/37.5MG] Metoprolol [Lopressor TAB] 50 mg PO BID #60 tablet 10/22/19 Unknown Rx NIFEdipine XL [Procardia Xl] 60 mg PO QDAY #30 tablet 10/22/19 Unknown Rx cephALEXin [Keflex] 500 mg PO Q12HR #10 cap 10/22/19 Unknown Rx Active Meds: Active Medications Acetaminophen (Acetaminophen 325 Mg Tab) 650 mg PO Q4H PRN PRN Reason: Pain MILD(1-3)/Fever >100.5/HENRY Aspirin (Aspirin Ec 81 Mg Tab) 81 mg PO QDAY [facility] Last Admin: 04/06/20 10:00 Dose: 81 mg Documented by: Atorvastatin Calcium (Atorvastatin 40 Mg Tab) 40 mg PO QHS [facility] Last Admin: 04/05/20 21:03 Dose: 40 mg Documented by: Carvedilol (Carvedilol 6.25 Mg Tab) 6.25 mg PO BID [facility] Last Admin: 04/06/20 09:59 Dose: 6.25 mg Documented by: Clopidogrel Bisulfate (Clopidogrel 75 Mg Tab) 75 mg PO QDAY [facility] Last Admin: 04/06/20 09:59 Dose: 75 mg Documented by: Dextrose (Dextrose 50% In Water (25gm) 50 Ml Syringe) 50 ml IV Q30MIN PRN; Protocol PRN Reason: Hypoglycemia Doxazosin Mesylate (Doxazosin 1 Mg Tab) 2 mg PO QHS [facility] Last Admin: 04/05/20 21:03 Dose: 2 mg Documented by: Furosemide (Furosemide 40 Mg/4 Ml Inj) 40 mg IV BID@0600,1800 [facility] Last Admin: 04/06/20 06:05 Dose: 40 mg Documented by: Heparin Sodium (Porcine) (Heparin 5,000 Unit/1 Ml Vial) 5,000 unit SUB-Q Q8HR [facility] Last Admin: 04/06/20 06:05 Dose: 5,000 unit Documented by: Insulin Human Regular (Insulin Regular, Human 100 Units/1 Ml) 0 units SUB-Q ACHS [facility]; Protocol Last Admin: 04/06/20 09:59 Dose: 2 units Documented by: Isosorbide Dinitrate/Hydralazine (Isosorb Dinit/Hydralazine 20-37.5mg Tab) 1 each PO Q8HR [facility] Last Admin: 04/06/20 06:05 Dose: 1 each Documented by: Magnesium Hydroxide (Magnesium Hydroxide (Mom) Oral Liqd Udc) 30 ml PO Q4H PRN PRN Reason: Constipation Miscellaneous Medication (Dorzolamide Hcl/Timolol Maleat [Cosopt Eye Drops]) 10 ml OP Q12HR [facility] Multivitamins/Minerals (Multivitamins,Ther W-Minerals Tab) 1 each PO QDAY [facility] Last Admin: 04/06/20 09:59 Dose: 1 each Documented by: Ondansetron HCl (Ondansetron 4 Mg/2 Ml Inj) 4 mg IV Q8H PRN PRN Reason: Nausea And Vomiting Sodium Chloride (Sodium Chloride 0.9% 10 Ml Flush Syringe) 10 ml IV BID [facility] Last Admin: 04/06/20 09:59 Dose: 10 ml Documented by: Sodium Chloride (Sodium Chloride 0.9% 10 Ml Flush Syringe) 10 ml IV PRN PRN PRN Reason: LINE FLUSH Last Admin: 04/06/20 06:12 Dose: 10 ml Documented by: Spironolactone (Spironolactone 25 Mg Tab) 25 mg PO QDAY [facility] Last Admin: 04/06/20 09:59 Dose: 25 mg Documented by: Review of Systems Cardiovascular: no chest pain, no palpitations, no edema, no lightheadedness, no shortness of breath Physical Examination Vital Signs Temp Pulse Resp BP Pulse Ox 98.7 F 91 H 22 154/94 98 04/05/20 11:01 04/05/20 11:04/05/20 11:04/05/20 11:01 04/05/20 11:01 General appearance: no acute distress HEENT: Positive: PERRL Neck: Positive: trachea midline Cardiac: Positive: Reg Rate and Rhythm Lungs: Positive: Normal Breath Sounds Neuro: Positive: Grossly Intact Extremities: Absent: edema Results 04/06/20 05:21 04/06/20 05:21 Cardiac Enzymes 04/05/20 Range/Units 11:34 AST 20 (5-40) units/L CK-MB (CK-2) 7.9 H (0.0-4.0) ng/mL Coagulation 04/05/20 04/06/20 Range/Units 11:34 05:21 PT 15.6 H 16.0 H (12.2-14.9) Sec. INR 1.24 H 1.28 H (0.87-1.13) APTT 34.0 (24.2-36.6) Sec. Lipids 04/05/20 Range/Units 11:34 Triglycerides 95 (2-149) mg/dL Cholesterol 161 (50-199) mg/dL HDL Cholesterol 44 (40-59) mg/dL Cholesterol/HDL Ratio 3.65 % CBC 04/05/20 04/06/20 04/06/20 Range/Units 11:34 00:32 05:21 WBC 10.1 13.9 H (4.5-11.0) K/mm3 RBC 3.57 L 3.55 L (3.65-5.03) M/mm3 Hgb 7.2 L 7.5 L 7.5 L (11.8-15.2) gm/dl Hct 24.1 L 25.5 L 25.0 L (35.5-45.6) % Plt Count 730 H 692 H (140-440) K/mm3 Lymph # (Auto) 1.4 (1.2-5.4) K/mm3 [place] # (Auto) 1.1 H (0.0-0.8) K/mm3 Eos # (Auto) 1.0 H (0.0-0.4) K/mm3 Baso # (Auto) 0.1 (0.0-0.1) K/mm3 Comprehensive Metabolic Panel 04/05/20 04/06/20 Range/Units 11:34 05:21 Sodium 137 136 L (137-145) mmol/L Potassium 4.7 4.1 (3.6-5.0) mmol/L Chloride 107.3 H 105.8 (98-107) mmol/L Carbon Dioxide 26 25 (22-30) mmol/L BUN 18 23 H (9-20) mg/dL Creatinine 1.7 H 1.9 H (0.8-1.3) mg/dL Glucose 104 H 110 H (75-100) mg/dL Calcium 9.8 9.5 (8.4-10.2) mg/dL AST 20 (5-40) units/L ALT 14 (7-56) units/L Alkaline Phosphatase 71 (35-129) units/L Total Protein 7.3 (6.3-8.2) g/dL Albumin 4.1 (3.9-5) g/dL Assessment and Plan Symptomatic anemia s/p transfusion of PRBCs Hx of ischemic cardiomyopathy EF 25-30% by echo 10/2019 Hx of CAD -PCI 10/2019 on plavix and aspirin Acute renal failure Hypertension Continue medical therapy for dilated cardiomyopathy and coronary artery disease. GI evaluation for symptomatic anemia and GI bleed.
--- NOTE | 2020-04-06 18:02 | Progress Note ---
Assessment and Plan Assessment and plan: 69-year-old male who presents with acute on chronic heart failure exacerbation with symptomatic microcytic anemia Plan: Acute on chronic systolic heart failure exacerbation Cardiology consulted Echocardiogram from 10/27/2019 shows EF of 25 to 30% Diuresis, furosemide 40 mg IV twice daily Continue carvedilol Pending echocardiogram History of CAD History of PCI on 10/27/2019 Continue Plavix and aspirin, atorvastatin History of left anterior fascicular block History of right bundle branch block Chronic, seen on repeat EKG Hypertension Spironolactone, isosorbide dinitrate/hydralazine, doxazosin, carvedilol Microcytic anemia This seems to be a chronic issue GI consulted with recommendations Obese Lifestyle change CODE STATUS: Full DVT prophylaxis: Heparin History Interval history: Patient seen and examined, states that he is improving with diuresis. No chest pain, mild shortness of breath. Hospitalist Physical - Physical exam Narrative exam: General appearance: Present: no acute distress, well-nourished - EENT Eyes: Present: PERRL, EOM intact ENT: hearing intact, clear oral mucosa - Respiratory Respiratory effort: normal Respiratory: bilateral: CTA, negative: rales, rhonchi, wheezing - Cardiovascular Rhythm: regular Heart Sounds: Present: S1 & S2. Absent: rub, click - Extremities Extremities: no ischemia, No lower extremity bilateral edema, normal temp erature, normal color, Full ROM - Abdominal General gastrointestinal: soft, non-tender, non-distended, normal bowel sounds - Integumentary Integumentary: Present: clear, warm, dry, normal turgor - Neurologic Neurologic: CNII-XII intact, no focal deficits, moves all extremities - Constitutional Vitals: Temp Pulse Resp BP Pulse Ox 98.4 F 83 18 142/69 93 04/06/20 04:49 04/06/20 10:00 04/06/20 04:49 04/06/20 06:05 04/06/20 04:49 General appearance: Present: no acute distress HEART Score - HEART Score EKG: Non-specific Age: > 65 Risk factors: > 3 risk factors or hx of atherosclerotic disease Troponin: Troponin T 0.050 ng/mL (0.00-0.029) H 04/06/20 00:31 Troponin: 1-3x normal limit - Critical Actions Critical Actions: 4-6 pts:12-16.6% risk of adverse cardiac event. Should be ad mitted Results - Labs CBC & Chem 7: 04/06/20 05:21 04/06/20 05:21 Labs: Laboratory Last Values WBC 13.9 K/mm3 (4.5-11.0) H 04/06/20 05:21 RBC 3.55 M/mm3 (3.65-5.03) L 04/06/20 05:21 Hgb 7.5 gm/dl (11.8-15.2) L 04/06/20 05:21 Hct 25.0 % (35.5-45.6) L 04/06/20 05:21 MCV 70 fl (84-94) L 04/06/20 05:21 MCH 21 pg (28-32) L 04/06/20 05:21 MCHC 30 % (32-34) L 04/06/20 05:21 RDW 26.8 % (13.2-15.2) H 04/06/20 05:21 Plt Count 692 K/mm3 (140-440) H 04/06/20 05:21 Lymph % (Auto) 13.7 % (13.4-35.0) 04/05/20 11:34 [place] % (Auto) 10.6 % (0.0-7.3) H 04/05/20 11:34 Eos % (Auto) 9.6 % (0.0-4.3) H 04/05/20 11:34 Baso % (Auto) 1.3 % (0.0-1.8) 04/05/20 11:34 Lymph # (Auto) 1.4 K/mm3 (1.2-5.4) 04/05/20 11:34 [place] # (Auto) 1.1 K/mm3 (0.0-0.8) H 04/05/20 11:34 Eos # (Auto) 1.0 K/mm3 (0.0-0.4) H 04/05/20 11:34 Baso # (Auto) 0.1 K/mm3 (0.0-0.1) 04/05/20 11:34 Add Manual Diff Complete 04/06/20 05:21 Total Counted 100 04/06/20 05:21 Seg Neutrophils % 64.8 % (40.0-70.0) 04/05/20 11:34 Seg Neuts % (Manual) 68.0 % (40.0-70.0) 04/06/20 05:21 Lymphocytes % (Manual) 13.0 % (13.4-35.0) L 04/06/20 05:21 Monocytes % (Manual) 10.0 % (0.0-7.3) H 04/06/20 05:21 Eosinophils % (Manual) 9.0 % (0.0-4.3) H 04/06/20 05:21 Nucleated RBC % Not Reportable 04/06/20 05:21 Seg Neutrophils # 6.5 K/mm3 (1.8-7.7) 04/05/20 11:34 Seg Neutrophils # Man 9.5 K/mm3 (1.8-7.7) H 04/06/20 05:21 Band Neutrophils # 0.0 K/mm3 04/06/20 05:21 Lymphocytes # (Manual) 1.8 K/mm3 (1.2-5.4) 04/06/20 05:21 Abs React Lymphs (Man) 0.0 K/mm3 04/06/20 05:21 Monocytes # (Manual) 1.4 K/mm3 (0.0-0.8) H 04/06/20 05:21 Eosinophils # (Manual) 1.3 K/mm3 (0.0-0.4) H 04/06/20 05:21 Basophils # (Manual) 0.0 K/mm3 (0.0-0.1) 04/06/20 05:21 Metamyelocytes # 0.0 K/mm3 04/06/20 05:21 Myelocytes # 0.0 K/mm3 04/06/20 05:21 Promyelocytes # 0.0 K/mm3 04/06/20 05:21 Blast Cells # 0.0 K/mm3 04/06/20 05:21 WBC Morphology Not Reportable 04/06/20 05:21 Hypersegmented Neuts Not Reportable 04/06/20 05:21 Hyposegmented Neuts Not Reportable 04/06/20 05:21 Hypogranular Neuts Not Reportable 04/06/20 05:21 Smudge Cells Not Reportable 04/06/20 05:21 Toxic Granulation Not Reportable 04/06/20 05:21 Toxic Vacuolation Not Reportable 04/06/20 05:21 Dohle Bodies Not Reportable 04/06/20 05:21 Pelger-Huet Anomaly Not Reportable 04/06/20 05:21 Diamond Rods Not Reportable 04/06/20 05:21 Platelet Estimate Consistent w auto 04/06/20 05:21 Clumped Platelets Not Reportable 04/06/20 05:21 Plt Clumps, EDTA Not Reportable 04/06/20 05:21 Large Platelets Not Reportable 04/06/20 05:21 Giant Platelets Not Reportable 04/06/20 05:21 Platelet Satelliting Not Reportable 04/06/20 05:21 Plt Morphology Comment Not Reportable 04/06/20 05:21 RBC Morphology Not Reportable 04/06/20 05:21 Dimorphic RBCs Not Reportable 04/06/20 05:21 Polychromasia Not Reportable 04/06/20 05:21 Hypochromasia 2+ 04/06/20 05:21 Poikilocytosis Not Reportable 04/06/20 05:21 Anisocytosis 3+ 04/06/20 05:21 Microcytosis Not Reportable 04/06/20 05:21 Macrocytosis Not Reportable 04/06/20 05:21 Spherocytes Not Reportable 04/06/20 05:21 Pappenheimer Bodies Not Reportable 04/06/20 05:21 Sickle Cells Not Reportable 04/06/20 05:21 Target Cells Not Reportable 04/06/20 05:21 Tear Drop Cells Not Reportable 04/06/20 05:21 Ovalocytes Not Reportable 04/06/20 05:21 Helmet Cells Not Reportable 04/06/20 05:21 [place] Bodies Not Reportable 04/06/20 05:21 [place] Rings Not Reportable 04/06/20 05:21 [place] Cells Not Reportable 04/06/20 05:21 Bite Cells Not Reportable 04/06/20 05:21 Crenated Cell Not Reportable 04/06/20 05:21 Elliptocytes Few 04/06/20 05:21 Acanthocytes (Spur) Not Reportable 04/06/20 05:21 Rouleaux Not Reportable 04/06/20 05:21 Hemoglobin C Crystals Not Reportable 04/06/20 05:21 Schistocytes Not Reportable 04/06/20 05:21 Malaria parasites Not Reportable 04/06/20 05:21 Amadeo Bodies Not Reportable 04/06/20 05:21 Hem Pathologist Commnt No 04/06/20 05:21 PT 16.0 Sec. (12.2-14.9) H 04/06/20 05:21 INR 1.28 (0.87-1.13) H 04/06/20 05:21 APTT 34.0 Sec. (24.2-36.6) 04/05/20 11:34 Sodium 136 mmol/L (137-145) L 04/06/20 05:21 Potassium 4.1 mmol/L (3.6-5.0) 04/06/20 05:21 Chloride 105.8 mmol/L (98-107) 04/06/20 05:21 Carbon Dioxide 25 mmol/L (22-30) 04/06/20 05:21 Anion Gap 9 mmol/L 04/06/20 05:21 BUN 23 mg/dL (9-20) H 04/06/20 05:21 Creatinine 1.9 mg/dL (0.8-1.3) H 04/06/20 05:21 Estimated GFR 42 ml/min 04/06/20 05:21 BUN/Creatinine Ratio 12 % 04/06/20 05:21 Glucose 110 mg/dL (75-100) H 04/06/20 05:21 POC Glucose 101 mg/dL (70-105) 04/06/20 16:27 Calcium 9.5 mg/dL (8.4-10.2) 04/06/20 05:21 Magnesium 1.80 mg/dL (1.7-2.3) 04/06/20 00:31 Total Bilirubin 0.50 mg/dL (0.1-1.2) 04/05/20 11:34 AST 20 units/L (5-40) 04/05/20 11:34 ALT 14 units/L (7-56) 04/05/20 11:34 Alkaline Phosphatase 71 units/L (35-129) 04/05/20 11:34 Total Creatine Kinase 232 units/L (55-170) H 04/05/20 11:40 CK-MB (CK-2) 7.9 ng/mL (0.0-4.0) H 04/05/20 11:34 CK-MB (CK-2) Rel Index 3.4 (0-4) 04/05/20 11:34 Troponin T 0.050 ng/mL (0.00-0.029) H 04/06/20 00:31 NT-Pro-B Natriuret Pep 1809 pg/mL (0-900) H 04/05/20 11:34 Total Protein 7.3 g/dL (6.3-8.2) 04/05/20 11:34 Albumin 4.1 g/dL (3.9-5) 04/05/20 11:34 Albumin/Globulin Ratio 1.3 % 04/05/20 11:34 Triglycerides 95 mg/dL (2-149) 04/05/20 11:34 Cholesterol 161 mg/dL (50-199) 04/05/20 11:34 LDL Cholesterol Direct 111 mg/dL (50-130) 04/05/20 11:34 HDL Cholesterol 44 mg/dL (40-59) 04/05/20 11:34 Cholesterol/HDL Ratio 3.65 % 04/05/20 11:34 Urine Color Colorless (Yellow) 04/05/20 18:00 Urine Turbidity Clear (Clear) 04/05/20 18:00 Urine pH 6.0 (5.0-7.0) 04/05/20 18:00 Ur Specific [place] 1.005 (1.003-1.030) 04/05/20 18:00 Urine Protein 30 mg/dl mg/dL (Negative) 04/05/20 18:00 Urine Glucose (UA) Neg mg/dL (Negative) 04/05/20 18:00 Urine Ketones Neg mg/dL (Negative) 04/05/20 18:00 Urine Blood Sm (Negative) 04/05/20 18:00 Urine Nitrite Neg (Negative) 04/05/20 18:00 Ur Reducing Substances Not Reportable 04/05/20 18:00 Urine Bilirubin Neg (Negative) 04/05/20 18:00 Urine Ictotest Not Reportable 04/05/20 18:00 Urine Urobilinogen < 2.0 mg/dL (<2.0) 04/05/20 18:00 Ur Leukocyte Esterase Neg (Negative) 04/05/20 18:00 Urine WBC (Auto) < 1.0 /HPF (0.0-6.0) 04/05/20 18:00 Urine RBC (Auto) < 1.0 /HPF (0.0-6.0) 04/05/20 18:00 Blood Type A POSITIVE 04/05/20 13:55 Antibody Screen Negative 04/05/20 13:55 Crossmatch See Detail 04/05/20 13:55 Kumar/IV: Voiding Method Urinal IV Catheter Type [Right Peripheral IV Antecubital] Active Medications - Current Medications Current Medications: Generic Name Dose Route Start Last Admin Trade Name Freq PRN Reason Stop Dose Admin Acetaminophen 650 mg 04/05/20 14:29 Acetaminophen 325 Mg Tab PO Q4H PRN Pain MILD(1-3)/Fever >100.5/HENRY Aspirin 81 mg 04/06/20 10:00 04/06/20 10:00 Aspirin Ec 81 Mg Tab PO 81 mg QDAY TREY Administration Atorvastatin Calcium 40 mg 04/05/20 22:00 04/05/20 21:03 Atorvastatin 40 Mg Tab PO 40 mg QHS TREY Administration Carvedilol 6.25 mg 04/06/20 10:00 04/06/20 09:59 Carvedilol 6.25 Mg Tab PO 6.25 mg BID TREY Administration Clopidogrel Bisulfate 75 mg 04/06/20 10:00 04/06/20 09:59 Clopidogrel 75 Mg Tab PO 75 mg QDAY TREY Administration Dextrose 50 ml 04/05/20 14:29 Dextrose 50% In Water (25gm) 50 Ml Syringe IV Q30MIN PRN Hypoglycemia Protocol Doxazosin Mesylate 2 mg 04/05/20 22:00 04/05/20 21:03 Doxazosin 1 Mg Tab PO 2 mg QHS TREY Administration Furosemide 40 mg 04/05/20 18:00 04/06/20 06:05 Furosemide 40 Mg/4 Ml Inj IV 40 mg BID@0600,1800 TREY Administration Heparin Sodium (Porcine) 5,000 unit 04/05/20 22:00 04/06/20 15:36 Heparin 5,000 Unit/1 Ml Vial SUB-Q 5,000 unit Q8HR TREY Administration Insulin Human Regular 0 units 04/05/20 16:30 04/06/20 15:20 Insulin Regular, Human 100 Units/1 Ml SUB-Q Not Given ACHS [facility] Protocol Isosorbide Dinitrate/Hydralazine 1 each 04/05/20 22:00 04/06/20 15:35 Isosorb Dinit/Hydralazine 20-37.5mg Tab PO 1 each Q8HR TREY Administration Magnesium Hydroxide 30 ml 04/05/20 14:29 Magnesium Hydroxide (Mom) Oral Liqd Udc PO Q4H PRN Constipation Miscellaneous Medication 10 ml 04/05/20 22:00 Dorzolamide Hcl/Timolol Maleat [Cosopt Eye Drops] OP Q12HR TREY Multivitamins/Minerals 1 each 04/06/20 10:00 04/06/20 09:59 Multivitamins,Ther W-Minerals Tab PO 1 each QDAY TREY Administration Ondansetron HCl 4 mg 04/05/20 14:29 Ondansetron 4 Mg/2 Ml Inj IV Q8H PRN Nausea And Vomiting Sodium Chloride 10 ml 04/05/20 22:00 04/06/20 09:59 Sodium Chloride 0.9% 10 Ml Flush Syringe IV 10 ml BID TREY Administration Sodium Chloride 10 ml 04/05/20 14:29 04/06/20 06:12 Sodium Chloride 0.9% 10 Ml Flush Syringe IV 10 ml PRN PRN Administration LINE FLUSH Spironolactone 25 mg 04/06/20 10:00 04/06/20 09:59 Spironolactone 25 Mg Tab PO 25 mg QDAY TREY Administration Nutrition/Malnutrition Assess - Dietary Evaluation Nutrition/Malnutrition Findings: Nutrition Notes Start: 04/06/20 11:39 Freq: Status: Active Protocol: Document 04/06/20 11:39 MARI (Rec: 04/06/20 11:40 MARI [id number]) Co-Sign 04/06/20 11:39 LP Nutrition Notes Need for Assessment generated from: MD Order Initial or Follow up Brief Note Current Diagnosis Coronary Artery Disease, Hypertension,Heart Failure Other Pertinent Diagnosis Anemia, PMH: colon CA Current Diet Cardiac with Consistent CHO Subjective/Other Information MD consult for diet education. Pt denied education at this time. Nutrition Intervention Revisit per MD consult or patient Sign Off request:
--- NOTE | 2020-04-06 18:10 | Consultation ---
History of Present Illness - Reason for Consult Consult date: 04/06/20 Anemia Requesting physician: ASHLY ROA - History of Present Illness 69 yo BM admitted for 2 wk hx of RUIZ, and found to be anemic. Has hgb = 7.5, with MCV = 70. On 10/22/19, his Hgb = 8.5. No hx of GI bleed, abd pain, N/V, weight loss. BMs qd, brown, no change. Pt has a hx of colon cancer with right hemicolectomy in 2013. He states he is on blood thinners, but unsure which one. No hx of ASA/NSAID use. He did have a colon/EGD in 10/2015, showing gastric ulcer. Meds reviewed. Past History Past Medical History: CAD, diabetes, heart failure, hypertension, other (History of colon cancer, anemia) Past Surgical History: PTCA, Other (Colon surgery) Social history: no significant social history Family history: no significant family history Medications and Allergies Allergies Allergy/AdvReac Type Severity Reaction Status Date / Time No Known Allergies Allergy Verified 04/05/20 10:58 Home Medications Medication Instructions Recorded Confirmed Last Taken Type Iron Fum,Ps/Folic/Bcomp,C No.9 1 each PO DAILY 04/25/16 10/18/19 04/25/16 History [Integra Plus Capsule] Omeprazole 40 mg PO DAILY 04/25/16 10/18/19 04/25/16 History Sildenafil Citrate [Viagra] 100 mg PO QDAY PRN 04/25/16 10/18/19 Unknown History Sitagliptin Phosphate [Januvia] 50 mg PO DAILY 04/25/16 10/18/19 04/25/16 History hydrALAZINE [Apresoline TAB] 25 mg PO Q12HR 04/25/16 10/18/19 04/25/16 History Aspirin 81 mg PO QDAY #30 tablet 04/26/16 10/18/19 Unknown Rx predniSONE [Deltasone] 60 mg PO QDAY 5 Days tablet 04/26/16 10/18/19 Unknown Rx valACYclovir [Valtrex] 1,000 mg PO TID 5 Days tablet 04/26/16 10/18/19 Unknown Rx bisacodyL [Dulcolax suppos] 10 mg [place] DAILY PRN #6 supp.rect 12/25/18 10/18/19 Unknown Rx Aspirin EC [Halfprin EC] 81 mg PO QDAY #30 tablet 10/22/19 Unknown Rx AtorvaSTATin [Lipitor] 40 mg PO QHS #30 tablet 10/22/19 Unknown Rx Clopidogrel [Plavix] 75 mg PO QDAY #30 tablet 10/22/19 Unknown Rx Dorzolamide HCl/Timolol Maleat 10 ml OP Q12HR 30 Days drops 10/22/19 Unknown Rx [Cosopt Eye Drops] Doxazosin [Cardura] 2 mg PO QHS #30 tablet 10/22/19 Unknown Rx Isosorb Dinit/Hydralazine [Bidil 1 each PO Q8HR #30 tablet 10/22/19 Unknown Rx 20/37.5MG] Metoprolol [Lopressor TAB] 50 mg PO BID #60 tablet 10/22/19 Unknown Rx NIFEdipine XL [Procardia Xl] 60 mg PO QDAY #30 tablet 10/22/19 Unknown Rx cephALEXin [Keflex] 500 mg PO Q12HR #10 cap 10/22/19 Unknown Rx Active Meds: Active Medications Acetaminophen (Acetaminophen 325 Mg Tab) 650 mg PO Q4H PRN PRN Reason: Pain MILD(1-3)/Fever >100.5/HENRY Aspirin (Aspirin Ec 81 Mg Tab) 81 mg PO QDAY [facility] Last Admin: 04/06/20 10:00 Dose: 81 mg Documented by: Atorvastatin Calcium (Atorvastatin 40 Mg Tab) 40 mg PO QHS [facility] Last Admin: 04/05/20 21:03 Dose: 40 mg Documented by: Carvedilol (Carvedilol 6.25 Mg Tab) 6.25 mg PO BID [facility] Last Admin: 04/06/20 09:59 Dose: 6.25 mg Documented by: Clopidogrel Bisulfate (Clopidogrel 75 Mg Tab) 75 mg PO QDAY [facility] Last Admin: 04/06/20 09:59 Dose: 75 mg Documented by: Dextrose (Dextrose 50% In Water (25gm) 50 Ml Syringe) 50 ml IV Q30MIN PRN; Protocol PRN Reason: Hypoglycemia Doxazosin Mesylate (Doxazosin 1 Mg Tab) 2 mg PO QHS [facility] Last Admin: 04/05/20 21:03 Dose: 2 mg Documented by: Furosemide (Furosemide 40 Mg/4 Ml Inj) 40 mg IV BID@0600,1800 [facility] Last Admin: 04/06/20 06:05 Dose: 40 mg Documented by: Heparin Sodium (Porcine) (Heparin 5,000 Unit/1 Ml Vial) 5,000 unit SUB-Q Q8HR [facility] Last Admin: 04/06/20 15:36 Dose: 5,000 unit Documented by: Insulin Human Regular (Insulin Regular, Human 100 Units/1 Ml) 0 units SUB-Q ACHS [facility]; Protocol Last Admin: 04/06/20 15:20 Dose: Not Given Documented by: Isosorbide Dinitrate/Hydralazine (Isosorb Dinit/Hydralazine 20-37.5mg Tab) 1 each PO Q8HR [facility] Last Admin: 04/06/20 15:35 Dose: 1 each Documented by: Magnesium Hydroxide (Magnesium Hydroxide (Mom) Oral Liqd Udc) 30 ml PO Q4H PRN PRN Reason: Constipation Miscellaneous Medication (Dorzolamide Hcl/Timolol Maleat [Cosopt Eye Drops]) 10 ml OP Q12HR [facility] Multivitamins/Minerals (Multivitamins,Ther W-Minerals Tab) 1 each PO QDAY [facility] Last Admin: 04/06/20 09:59 Dose: 1 each Documented by: Ondansetron HCl (Ondansetron 4 Mg/2 Ml Inj) 4 mg IV Q8H PRN PRN Reason: Nausea And Vomiting Sodium Chloride (Sodium Chloride 0.9% 10 Ml Flush Syringe) 10 ml IV BID [facility] Last Admin: 04/06/20 09:59 Dose: 10 ml Documented by: Sodium Chloride (Sodium Chloride 0.9% 10 Ml Flush Syringe) 10 ml IV PRN PRN PRN Reason: LINE FLUSH Last Admin: 04/06/20 06:12 Dose: 10 ml Documented by: Spironolactone (Spironolactone 25 Mg Tab) 25 mg PO QDAY [facility] Last Admin: 04/06/20 09:59 Dose: 25 mg Documented by: Review of Systems All systems: negative (as per HPI) Exam - Constitutional Vitals: Temp Pulse Resp BP Pulse Ox 98.3 F 86 18 123/51 94 04/06/20 17:24 04/06/20 17:24 04/06/20 17:24 04/06/20 17:24 04/06/20 17:24 General appearance: Present: no acute distress - EENT Eyes: Present: PERRL, EOM intact ENT: hearing intact - Respiratory Respiratory effort: normal - Cardiovascular Rhythm: regular Heart Sounds: Present: S1 & S2 - Abdominal General gastrointestinal: Present: soft, non-tender Results - Labs CBC & Chem 7: 04/06/20 05:21 04/06/20 05:21 Labs: Abnormal lab results 04/05/20 04/06/20 04/06/20 Range/Units 13:55 00:31 00:32 WBC (4.5-11.0) K/mm3 RBC (3.65-5.03) M/mm3 Hgb 7.5 L (11.8-15.2) gm/dl Hct 25.5 L (35.5-45.6) % MCV (84-94) fl MCH (28-32) pg MCHC (32-34) % RDW (13.2-15.2) % Plt Count (140-440) K/mm3 Lymphocytes % (Manual) (13.4-35.0) % Monocytes % (Manual) (0.0-7.3) % Eosinophils % (Manual) (0.0-4.3) % Seg Neutrophils # Man (1.8-7.7) K/mm3 Monocytes # (Manual) (0.0-0.8) K/mm3 Eosinophils # (Manual) (0.0-0.4) K/mm3 PT (12.2-14.9) Sec. INR (0.87-1.13) Sodium (137-145) mmol/L BUN (9-20) mg/dL Creatinine (0.8-1.3) mg/dL Glucose (75-100) mg/dL POC Glucose (70-105) mg/dL Troponin T 0.050 H (0.00-0.029) ng/mL Crossmatch See Detail 04/06/20 04/06/20 04/06/20 Range/Units 05:21 05:21 05:21 WBC 13.9 H (4.5-11.0) K/mm3 RBC 3.55 L (3.65-5.03) M/mm3 Hgb 7.5 L (11.8-15.2) gm/dl Hct 25.0 L (35.5-45.6) % MCV 70 L (84-94) fl MCH 21 L (28-32) pg MCHC 30 L (32-34) % RDW 26.8 H (13.2-15.2) % Plt Count 692 H (140-440) K/mm3 Lymphocytes % (Manual) 13.0 L (13.4-35.0) % Monocytes % (Manual) 10.0 H (0.0-7.3) % Eosinophils % (Manual) 9.0 H (0.0-4.3) % Seg Neutrophils # Man 9.5 H (1.8-7.7) K/mm3 Monocytes # (Manual) 1.4 H (0.0-0.8) K/mm3 Eosinophils # (Manual) 1.3 H (0.0-0.4) K/mm3 PT 16.0 H (12.2-14.9) Sec. INR 1.28 H (0.87-1.13) Sodium 136 L (137-145) mmol/L BUN 23 H (9-20) mg/dL Creatinine 1.9 H (0.8-1.3) mg/dL Glucose 110 H (75-100) mg/dL POC Glucose (70-105) mg/dL Troponin T (0.00-0.029) ng/mL Crossmatch 04/06/20 Range/Units 09:13 WBC (4.5-11.0) K/mm3 RBC (3.65-5.03) M/mm3 Hgb (11.8-15.2) gm/dl Hct (35.5-45.6) % MCV (84-94) fl MCH (28-32) pg MCHC (32-34) % RDW (13.2-15.2) % Plt Count (140-440) K/mm3 Lymphocytes % (Manual) (13.4-35.0) % Monocytes % (Manual) (0.0-7.3) % Eosinophils % (Manual) (0.0-4.3) % Seg Neutrophils # Man (1.8-7.7) K/mm3 Monocytes # (Manual) (0.0-0.8) K/mm3 Eosinophils # (Manual) (0.0-0.4) K/mm3 PT (12.2-14.9) Sec. INR (0.87-1.13) Sodium (137-145) mmol/L BUN (9-20) mg/dL Creatinine (0.8-1.3) mg/dL Glucose (75-100) mg/dL POC Glucose 185 H (70-105) mg/dL Troponin T (0.00-0.029) ng/mL Crossmatch Assessment and Plan 1. Microcytic anemia - chronic. No clear history of mary ann GI bleed. No GI symptoms. Hx of PUD in past. Has hx of colon cancer. - will check iron levels - check stool for OB - empiric PPI - transfuse as needed - EGD/Colonoscopy, probably as outpatient. May do prior to anticoagulation if evidence of GI bleed, and o/w as outpatient.
[2020-04-06 19:05] LABS: Iron 16 ug/dL (49-181); Total Iron Binding Capacity 368 mcg/dL (250-450)
[2020-04-06] MEDS: PANTOPRAZOLE 40 MG TAB PO SCH (20:27)
[2020-04-06] MEDS: DOXAZOSIN 1 MG TAB PO SCH (21:26)
[2020-04-07 06:05] LABS: Hematocrit 26.6 % (35.5-45.6); Mean Corpuscular HGB Conc 30 % (32-34); Mean Corpuscular Volume 71 fl (84-94); Platelet Count 722 K/mm3 (140-440); Red Blood Count 3.72 M/mm3 (3.65-5.03)
[2020-04-07] MEDS: HEPARIN 5,000 UNIT/1 ML VIAL SUB-Q SCH ×3 (06:06→21:20)
[2020-04-07] MEDS: ISOSORB DINIT/HYDRALAZINE 20-37.5MG TAB PO SCH ×3 (06:06→21:45)
[2020-04-07] MEDS: FUROSEMIDE 40 MG/4 ML INJ IV SCH ×2 (06:06→17:33)
[2020-04-07 06:17] LABS: Red Cell Distribution Width 26.8 % (13.2-15.2)
[2020-04-07 06:19] LABS: Calcium 9.8 mg/dL (8.4-10.2)
[2020-04-07] MEDS: PANTOPRAZOLE 40 MG TAB PO SCH (07:30)
--- NOTE | 2020-04-07 09:24 | Progress Note ---
Assessment and Plan Assessment and plan: 69-year-old male who presents with acute on chronic heart failure exacerbation with symptomatic microcytic anemia Plan: Acute on chronic systolic heart failure exacerbation Cardiology consulted Echocardiogram from 10/27/2019 shows EF of 25 to 30% Diuresis, furosemide 40 mg IV twice daily Continue carvedilol Pending echocardiogram Patient may need Lexiscan test, awaiting recommendations from cardiology History of CAD History of PCI on 10/27/2019 Continue Plavix and aspirin, atorvastatin History of left anterior fascicular block History of right bundle branch block Chronic, seen on repeat EKG Hypertension Spironolactone, isosorbide dinitrate/hydralazine, doxazosin, carvedilol Microcytic anemia This seems to be a chronic issue GI consulted, recommendations noted. Patient has a history of colon cancer with resection. Patient will need colonoscopy Acute kidney injury with CKD stage IIIb Continue diuresis Obese Lifestyle change CODE STATUS: Full DVT prophylaxis: Heparin Disposition: Hemoglobin stable at this time, awaiting echocardiogram and additional recommendations from cardiology. Continue inpatient care. History Interval history: Patient's breathing has improved. Patient denies any hematochezia or melena. Spoke with GI, anemia is a chronic issue at this time. We will continue to monitor hemoglobin which is improved. Patient without any fevers or chills. Hospitalist Physical - Physical exam Narrative exam: General appearance: Present: no acute distress, well-nourished - EENT Eyes: Present: PERRL, EOM intact ENT: hearing intact, clear oral mucosa - Respiratory Respiratory effort: normal Respiratory: bilateral: CTA, negative: rales, rhonchi, wheezing - Cardiovascular Rhythm: regular Heart Sounds: Present: S1 & S2. Absent: rub, click - Extremities Extremities: no ischemia, No lower extremity bilateral edema, normal temperature, normal color, Full ROM - Abdominal General gastrointestinal: soft, non-tender, non-distended, normal bowel sounds - Integumentary Integumentary: Present: clear, warm, dry, normal turgor - Neurologic Neurologic: CNII-XII intact, no focal deficits, moves all extremities - Constitutional Vitals: Temp Pulse Resp BP Pulse Ox 98.5 F 87 14 124/46 94 04/07/20 04:10 04/07/20 08:59 04/07/20 04:10 04/07/20 08:59 04/07/20 08:59 General appearance: Present: no acute distress HEART Score - HEART Score EKG: Non-specific Age: > 65 Risk factors: > 3 risk factors or hx of atherosclerotic disease Troponin: Troponin T 0.050 ng/mL (0.00-0.029) H 04/06/20 00:31 Troponin: 1-3x normal limit - Critical Actions Critical Actions: 4-6 pts:12-16.6% risk of adverse cardiac event. Should be admitted Results - Labs CBC & Chem 7: 04/07/20 05:29 04/07/20 05:29 Labs: Laboratory Last Values WBC 12.7 K/mm3 (4.5-11.0) H 04/07/20 05:29 RBC 3.72 M/mm3 (3.65-5.03) 04/07/20 05:29 Hgb 8.0 gm/dl (11.8-15.2) L 04/07/20 05:29 Hct 26.6 % (35.5-45.6) L 04/07/20 05:29 MCV 71 fl (84-94) L 04/07/20 05:29 MCH 22 pg (28-32) L 04/07/20 05:29 MCHC 30 % (32-34) L 04/07/20 05:29 RDW 26.8 % (13.2-15.2) H 04/07/20 05:29 Plt Count 722 K/mm3 (140-440) H 04/07/20 05:29 Lymph % (Auto) 13.7 % (13.4-35.0) 04/05/20 11:34 [place] % (Auto) 10.6 % (0.0-7.3) H 04/05/20 11:34 Eos % (Auto) 9.6 % (0.0-4.3) H 04/05/20 11:34 Baso % (Auto) 1.3 % (0.0-1.8) 04/05/20 11:34 Lymph # (Auto) 1.4 K/mm3 (1.2-5.4) 04/05/20 11:34 [place] # (Auto) 1.1 K/mm3 (0.0-0.8) H 04/05/20 11:34 Eos # (Auto) 1.0 K/mm3 (0.0-0.4) H 04/05/20 11:34 Baso # (Auto) 0.1 K/mm3 (0.0-0.1) 04/05/20 11:34 Add Manual Diff Complete 04/06/20 05:21 Total Counted 100 04/06/20 05:21 Seg Neutrophils % 64.8 % (40.0-70.0) 04/05/20 11:34 Seg Neuts % (Manual) 68.0 % (40.0-70.0) 04/06/20 05:21 Lymphocytes % (Manual) 13.0 % (13.4-35.0) L 04/06/20 05:21 Monocytes % (Manual) 10.0 % (0.0-7.3) H 04/06/20 05:21 Eosinophils % (Manual) 9.0 % (0.0-4.3) H 04/06/20 05:21 Nucleated RBC % Not Reportable 04/06/20 05:21 Seg Neutrophils # 6.5 K/mm3 (1.8-7.7) 04/05/20 11:34 Seg Neutrophils # Man 9.5 K/mm3 (1.8-7.7) H 04/06/20 05:21 Band Neutrophils # 0.0 K/mm3 04/06/20 05:21 Lymphocytes # (Manual) 1.8 K/mm3 (1.2-5.4) 04/06/20 05:21 Abs React Lymphs (Man) 0.0 K/mm3 04/06/20 05:21 Monocytes # (Manual) 1.4 K/mm3 (0.0-0.8) H 04/06/20 05:21 Eosinophils # (Manual) 1.3 K/mm3 (0.0-0.4) H 04/06/20 05:21 Basophils # (Manual) 0.0 K/mm3 (0.0-0.1) 04/06/20 05:21 Metamyelocytes # 0.0 K/mm3 04/06/20 05:21 Myelocytes # 0.0 K/mm3 04/06/20 05:21 Promyelocytes # 0.0 K/mm3 04/06/20 05:21 Blast Cells # 0.0 K/mm3 04/06/20 05:21 WBC Morphology Not Reportable 04/06/20 05:21 Hypersegmented Neuts Not Reportable 04/06/20 05:21 Hyposegmented Neuts Not Reportable 04/06/20 05:21 Hypogranular Neuts Not Reportable 04/06/20 05:21 Smudge Cells Not Reportable 04/06/20 05:21 Toxic Granulation Not Reportable 04/06/20 05:21 Toxic Vacuolation Not Reportable 04/06/20 05:21 Dohle Bodies Not Reportable 04/06/20 05:21 Pelger-Huet Anomaly Not Reportable 04/06/20 05:21 Diamond Rods Not Reportable 04/06/20 05:21 Platelet Estimate Consistent w auto 04/06/20 05:21 Clumped Platelets Not Reportable 04/06/20 05:21 Plt Clumps, EDTA Not Reportable 04/06/20 05:21 Large Platelets Not Reportable 04/06/20 05:21 Giant Platelets Not Reportable 04/06/20 05:21 Platelet Satelliting Not Reportable 04/06/20 05:21 Plt Morphology Comment Not Reportable 04/06/20 05:21 RBC Morphology Not Reportable 04/06/20 05:21 Dimorphic RBCs Not Reportable 04/06/20 05:21 Polychromasia Not Reportable 04/06/20 05:21 Hypochromasia 2+ 04/06/20 05:21 Poikilocytosis Not Reportable 04/06/20 05:21 Anisocytosis 3+ 04/06/20 05:21 Microcytosis Not Reportable 04/06/20 05:21 Macrocytosis Not Reportable 04/06/20 05:21 Spherocytes Not Reportable 04/06/20 05:21 Pappenheimer Bodies Not Reportable 04/06/20 05:21 Sickle Cells Not Reportable 04/06/20 05:21 Target Cells Not Reportable 04/06/20 05:21 Tear Drop Cells Not Reportable 04/06/20 05:21 Ovalocytes Not Reportable 04/06/20 05:21 Helmet Cells Not Reportable 04/06/20 05:21 Devi[place] Bodies Not Reportable 04/06/20 05:21 [place] Rings Not Reportable 04/06/20 05:21 [place] Cells Not Reportable 04/06/20 05:21 Bite Cells Not Reportable 04/06/20 05:21 Crenated Cell Not Reportable 04/06/20 05:21 Elliptocytes Few 04/06/20 05:21 Acanthocytes (Spur) Not Reportable 04/06/20 05:21 Rouleaux Not Reportable 04/06/20 05:21 Hemoglobin C Crystals Not Reportable 04/06/20 05:21 Schistocytes Not Reportable 04/06/20 05:21 Malaria parasites Not Reportable 04/06/20 05:21 Amadeo Bodies Not Reportable 04/06/20 05:21 Hem Pathologist Commnt No 04/06/20 05:21 PT 16.0 Sec. (12.2-14.9) H 04/06/20 05:21 INR 1.28 (0.87-1.13) H 04/06/20 05:21 APTT 34.0 Sec. (24.2-36.6) 04/05/20 11:34 Sodium 138 mmol/L (137-145) 04/07/20 05:29 Potassium 4.3 mmol/L (3.6-5.0) 04/07/20 05:29 Chloride 105.7 mmol/L (98-107) 04/07/20 05:29 Carbon Dioxide 23 mmol/L (22-30) 04/07/20 05:29 Anion Gap 14 mmol/L 04/07/20 05:29 BUN 26 mg/dL (9-20) H 04/07/20 05:29 Creatinine 2.0 mg/dL (0.8-1.3) H 04/07/20 05:29 Estimated GFR 40 ml/min 04/07/20 05:29 BUN/Creatinine Ratio 13 % 04/07/20 05:29 Glucose 120 mg/dL (75-100) H 04/07/20 05:29 POC Glucose 117 mg/dL (70-105) H 04/07/20 07:18 Calcium 9.8 mg/dL (8.4-10.2) 04/07/20 05:29 Magnesium 1.80 mg/dL (1.7-2.3) 04/06/20 00:31 Iron 16 ug/dL (49-181) L 04/06/20 18:20 TIBC 368 mcg/dL (250-450) 04/06/20 18:20 Ferritin 14.0 ng/mL (30.0-300.0) L 04/06/20 18:20 Total Bilirubin 0.50 mg/dL (0.1-1.2) 04/05/20 11:34 AST 20 units/L (5-40) 04/05/20 11:34 ALT 14 units/L (7-56) 04/05/20 11:34 Alkaline Phosphatase 71 units/L (35-129) 04/05/20 11:34 Total Creatine Kinase 232 units/L (55-170) H 04/05/20 11:40 CK-MB (CK-2) 7.9 ng/mL (0.0-4.0) H 04/05/20 11:34 CK-MB (CK-2) Rel Index 3.4 (0-4) 04/05/20 11:34 Troponin T 0.050 ng/mL (0.00-0.029) H 04/06/20 00:31 NT-Pro-B Natriuret Pep 1809 pg/mL (0-900) H 04/05/20 11:34 Total Protein 7.3 g/dL (6.3-8.2) 04/05/20 11:34 Albumin 4.1 g/dL (3.9-5) 04/05/20 11:34 Albumin/Globulin Ratio 1.3 % 04/05/20 11:34 Triglycerides 95 mg/dL (2-149) 04/05/20 11:34 Cholesterol 161 mg/dL (50-199) 04/05/20 11:34 LDL Cholesterol Direct 111 mg/dL (50-130) 04/05/20 11:34 HDL Cholesterol 44 mg/dL (40-59) 04/05/20 11:34 Cholesterol/HDL Ratio 3.65 % 04/05/20 11:34 Urine Color Colorless (Yellow) 04/05/20 18:00 Urine Turbidity Clear (Clear) 04/05/20 18:00 Urine pH 6.0 (5.0-7.0) 04/05/20 18:00 Ur Specific [place] 1.005 (1.003-1.030) 04/05/20 18:00 Urine Protein 30 mg/dl mg/dL (Negative) 04/05/20 18:00 Urine Glucose (UA) Neg mg/dL (Negative) 04/05/20 18:00 Urine Ketones Neg mg/dL (Negative) 04/05/20 18:00 Urine Blood Sm (Negative) 04/05/20 18:00 Urine Nitrite Neg (Negative) 04/05/20 18:00 Ur Reducing Substances Not Reportable 04/05/20 18:00 Urine Bilirubin Neg (Negative) 04/05/20 18:00 Urine Ictotest Not Reportable 04/05/20 18:00 Urine Urobilinogen < 2.0 mg/dL (<2.0) 04/05/20 18:00 Ur Leukocyte Esterase Neg (Negative) 04/05/20 18:00 Urine WBC (Auto) < 1.0 /HPF (0.0-6.0) 04/05/20 18:00 Urine RBC (Auto) < 1.0 /HPF (0.0-6.0) 04/05/20 18:00 Blood Type A POSITIVE 04/05/20 13:55 Antibody Screen Negative 04/05/20 13:55 Crossmatch See Detail 04/05/20 13:55 Kumar/IV: Voiding Method Urinal IV Catheter Type [Right Peripheral IV Antecubital] Active Medications - Current Medications Current Medications: Generic Name Dose Route Start Last Admin Trade Name Freq PRN Reason Stop Dose Admin Acetaminophen 650 mg 04/05/20 14:29 Acetaminophen 325 Mg Tab PO Q4H PRN Pain MILD(1-3)/Fever >100.5/HENRY Aspirin 81 mg 04/06/20 10:00 04/06/20 10:00 Aspirin Ec 81 Mg Tab PO 81 mg QDAY TREY Administration Atorvastatin Calcium 40 mg 04/05/20 22:00 04/06/20 21:27 Atorvastatin 40 Mg Tab PO 40 mg QHS TREY Administration Carvedilol 6.25 mg 04/06/20 10:00 04/06/20 21:27 Carvedilol 6.25 Mg Tab PO 6.25 mg BID TREY Administration Clopidogrel Bisulfate 75 mg 04/06/20 10:00 04/06/20 09:59 Clopidogrel 75 Mg Tab PO 75 mg QDAY TREY Administration Dextrose 50 ml 04/05/20 14:29 Dextrose 50% In Water (25gm) 50 Ml Syringe IV Q30MIN PRN Hypoglycemia Protocol Doxazosin Mesylate 2 mg 04/05/20 22:00 04/06/20 21:26 Doxazosin 1 Mg Tab PO 2 mg QHS TREY Administration Furosemide 40 mg 04/05/20 18:00 04/07/20 06:06 Furosemide 40 Mg/4 Ml Inj IV 40 mg BID@0600,1800 TREY Administration Heparin Sodium (Porcine) 5,000 unit 04/05/20 22:00 04/07/20 06:06 Heparin 5,000 Unit/1 Ml Vial SUB-Q 5,000 unit Q8HR TREY Administration Insulin Human Regular 0 units 04/05/20 16:30 04/06/20 21:29 Insulin Regular, Human 100 Units/1 Ml SUB-Q Not Given ACHS [facility] Protocol Isosorbide Dinitrate/Hydralazine 1 each 04/05/20 22:00 04/07/20 06:06 Isosorb Dinit/Hydralazine 20-37.5mg Tab PO 1 each Q8HR TREY Administration Magnesium Hydroxide 30 ml 04/05/20 14:29 Magnesium Hydroxide (Mom) Oral Liqd Udc PO Q4H PRN Constipation Miscellaneous Medication 10 ml 04/05/20 22:00 Dorzolamide Hcl/Timolol Maleat [Cosopt Eye Drops] OP Q12HR [facility] Multivitamins/Minerals 1 each 04/06/20 10:00 04/06/20 09:59 Multivitamins,Ther W-Minerals Tab PO 1 each QDAY TREY Administration Ondansetron HCl 4 mg 04/05/20 14:29 Ondansetron 4 Mg/2 Ml Inj IV Q8H PRN Nausea And Vomiting Pantoprazole Sodium 40 mg 04/06/20 20:00 04/06/20 20:27 Pantoprazole 40 Mg Tab PO 40 mg QDAC TREY Administration Sodium Chloride 10 ml 04/05/20 22:00 04/06/20 21:28 Sodium Chloride 0.9% 10 Ml Flush Syringe IV 10 ml BID TREY Administration Sodium Chloride 10 ml 04/05/20 14:29 04/06/20 06:12 Sodium Chloride 0.9% 10 Ml Flush Syringe IV 10 ml PRN PRN Administration LINE FLUSH Spironolactone 25 mg 04/06/20 10:00 04/06/20 09:59 Spironolactone 25 Mg Tab PO 25 mg QDAY TREY Administration Nutrition/Malnutrition Assess - Dietary Evaluation Nutrition/Malnutrition Findings: Nutrition Notes Start: 04/06/20 11:39 Freq: Status: Active Protocol: Document 04/06/20 11:39 MARI (Rec: 04/06/20 11:40 MARI [id number]) Co-Sign 04/06/20 11:39 LP Nutrition Notes Need for Assessment generated from: MD Order Initial or Follow up Brief Note Current Diagnosis Coronary Artery Disease, Hypertension,Heart Failure Other Pertinent Diagnosis Anemia, PMH: colon CA Current Diet Cardiac with Consistent CHO Subjective/Other Information MD consult for diet education. Pt denied education at this time. Nutrition Intervention Revisit per MD consult or patient Sign Off request:
[2020-04-07] MEDS: INSULIN REGULAR, HUMAN 100 UNITS/1 ML SUB-Q SCH ×4 (09:27→22:30)
[2020-04-07] MEDS: ASPIRIN EC 81 MG TAB PO SCH (09:28)
[2020-04-07] MEDS: CLOPIDOGREL 75 MG TAB PO SCH (09:28)
[2020-04-07] MEDS: carvediloL 6.25 MG TAB PO SCH ×2 (09:28→21:19)
[2020-04-07] MEDS: MULTIVITAMINS,THER W-MINERALS TAB PO SCH (09:29)
[2020-04-07] MEDS: SPIRONOLACTONE 25 MG TAB PO SCH (09:29)
--- NOTE | 2020-04-07 11:40 | Gastroenterology Progress Note ---
Assessment and Plan - Patient Problems (1) Symptomatic anemia Current Visit: Yes Status: Acute Plan to address problem: - No gross bleeding, despite use of ASA/plavix (and hct slowly increasing). - Will continue daily protonix/MVI, and await Cards recs re:stress test. - Continue diuresis, and cardiac meds. - EGD/colon 2016 small , colon 2014 colon cancer (resected). - Will get EGD/colon when cardiopulmonary status improved/stabilized. Subjective Date of service: 04/07/20 Principal diagnosis: Symptomatic Anemia Interval history: The patient feels well with less SOB than yesterday. He denies CP or abdominal pain, and has no gross melena. Objective - Constitutional Vitals: Temp Pulse Resp BP Pulse Ox 98.5 F 86 19 124/56 94 04/07/20 04:10 04/07/20 09:29 04/07/20 08:00 04/07/20 09:29 04/07/20 08:59 General appearance: no acute distress - EENT Eyes: PERRL, EOM intact - Respiratory Respiratory effort: normal Respiratory: bilateral: CTA - Cardiovascular Rhythm: regular Heart Sounds: Present: S1 & S2 - Gastrointestinal General gastrointestinal: Present: soft, non-tender, non-distended - Labs CBC & Chem 7: 04/07/20 05:29 04/07/20 05:29 Labs: Laboratory Results - last 24 hr 04/06/20 04/06/20 04/06/20 06:00 11:49 16:27 WBC RBC Hgb Hct MCV MCH MCHC RDW Plt Count Sodium Potassium Chloride Carbon Dioxide Anion Gap BUN Creatinine Estimated GFR BUN/Creatinine Ratio Glucose POC Glucose 102 101 Calcium Iron TIBC Ferritin Nasal Screen MRSA (PCR) Negative 04/06/20 04/06/20 04/06/20 18:20 18:20 20:36 WBC RBC Hgb Hct MCV MCH MCHC RDW Plt Count Sodium Potassium Chloride Carbon Dioxide Anion Gap BUN Creatinine Estimated GFR BUN/Creatinine Ratio Glucose POC Glucose 138 H Calcium Iron 16 L TIBC 368 Ferritin 14.0 L Nasal Screen MRSA (PCR) 04/07/20 04/07/20 04/07/20 05:29 05:29 07:18 WBC 12.7 H RBC 3.72 Hgb 8.0 L Hct 26.6 L MCV 71 L MCH 22 L MCHC 30 L RDW 26.8 H Plt Count 722 H Sodium 138 Potassium 4.3 Chloride 105.7 Carbon Dioxide 23 Anion Gap 14 BUN 26 H Creatinine 2.0 H Estimated GFR 40 BUN/Creatinine Ratio 13 Glucose 120 H POC Glucose 117 H Calcium 9.8 Iron TIBC Ferritin Nasal Screen MRSA (PCR) 04/07/20 11:28 WBC RBC Hgb Hct MCV MCH MCHC RDW Plt Count Sodium Potassium Chloride Carbon Dioxide Anion Gap BUN Creatinine Estimated GFR BUN/Creatinine Ratio Glucose POC Glucose 106 H Calcium Iron TIBC Ferritin Nasal Screen MRSA (PCR)
[2020-04-07] MEDS ORDERED: hydrALAZINE 20 MG/1 ML INJ IV PRN (12:43)
--- NOTE | 2020-04-07 17:34 | Progress Note ---
Assessment and Plan Symptomatic anemia s/p transfusion of PRBCs Thrombocytosis Hx of ischemic cardiomyopathy EF 25-30% by echo 10/2019 Hx of CAD -PCI of RCA 10/2019 on plavix and aspirin NSVT on telemetry Bifascicular block on EKG Acute renal failure on CKD Hypertension Continue medical therapy for dilated cardiomyopathy and coronary artery disease. GI evaluation for symptomatic anemia and GI bleed. May need to consider stress test if patient has symptoms with correction of anemia. Subjective Date of service: 04/07/20 Principal diagnosis: Symptomatic Anemia Interval history: No CP/SOB. Tele - SR, NSVT x 9 beats Objective Vital Signs Temp Pulse Pulse Pulse Resp BP Pulse Ox 04/07/20 16:13 79 139/63 95 04/07/20 16:00 98.6 F 04/07/20 13:06 78 151/72 04/07/20 12:00 98.1 F 04/07/20 11:54 81 151/72 96 04/07/20 10:00 80 04/07/20 09:29 86 124/56 04/07/20 09:28 86 124/65 04/07/20 08:59 87 124/46 94 04/07/20 08:00 110 H 110 H 19 04/07/20 04:10 98.5 F 86 14 127/58 93 04/07/20 00:11 98.3 F 83 14 111/38 94 04/06/20 20:06 100 H 04/06/20 19:48 98.5 F 100 H 14 149/63 96 - Physical Examination HEENT: Positive: PERRL Neck: Positive: trachea midline Cardiac: Positive: Reg Rate and Rhythm Lungs: Positive: clear to auscultation Neuro: Positive: Grossly Intact Abdomen: Positive: Soft. Negative: Tender Extremities: Present: edema (trace) - Labs and Meds CBC 04/07/20 Range/Units 05:29 WBC 12.7 H (4.5-11.0) K/mm3 RBC 3.72 (3.65-5.03) M/mm3 Hgb 8.0 L (11.8-15.2) gm/dl Hct 26.6 L (35.5-45.6) % Plt Count 722 H (140-440) K/mm3 Comprehensive Metabolic Panel 04/07/20 Range/Units 05:29 Sodium 138 (137-145) mmol/L Potassium 4.3 (3.6-5.0) mmol/L Chloride 105.7 (98-107) mmol/L Carbon Dioxide 23 (22-30) mmol/L BUN 26 H (9-20) mg/dL Creatinine 2.0 H (0.8-1.3) mg/dL Glucose 120 H (75-100) mg/dL Calcium 9.8 (8.4-10.2) mg/dL
[2020-04-07] MEDS: DOXAZOSIN 1 MG TAB PO SCH (21:19)
[2020-04-08] MEDS: HEPARIN 5,000 UNIT/1 ML VIAL SUB-Q SCH ×3 (06:06→21:58)
[2020-04-08] MEDS: ISOSORB DINIT/HYDRALAZINE 20-37.5MG TAB PO SCH ×3 (06:06→21:59)
[2020-04-08] MEDS: FUROSEMIDE 40 MG/4 ML INJ IV SCH ×2 (06:07→18:14)
[2020-04-08] MEDS: INSULIN REGULAR, HUMAN 100 UNITS/1 ML SUB-Q SCH ×4 (07:40→21:55)
[2020-04-08] MEDS: MULTIVITAMINS,THER W-MINERALS TAB PO SCH (08:59)
[2020-04-08] MEDS: PANTOPRAZOLE 40 MG TAB PO SCH (08:59)
[2020-04-08] MEDS: carvediloL 6.25 MG TAB PO SCH ×2 (08:59→21:58)
[2020-04-08] MEDS: ASPIRIN EC 81 MG TAB PO SCH (08:59)
[2020-04-08] MEDS: CLOPIDOGREL 75 MG TAB PO SCH (08:59)
--- NOTE | 2020-04-08 10:18 | Progress Note ---
Assessment and Plan Assessment and plan: 69-year-old male who presents with acute on chronic heart failure exacerbation with symptomatic microcytic anemia Plan: Acute on chronic systolic heart failure exacerbation Cardiology consulted Echocardiogram from 10/27/2019 shows EF of 25 to 30% Diuresis, furosemide 40 mg IV twice daily Continue carvedilol Pending echocardiogram Patient may need Lexiscan test, awaiting recommendations from cardiology History of CAD History of PCI on 10/27/2019 Continue Plavix and aspirin, atorvastatin History of left anterior fascicular block History of right bundle branch block Chronic, seen on repeat EKG Hypertension Spironolactone, isosorbide dinitrate/hydralazine, doxazosin, carvedilol Microcytic anemia This seems to be a chronic issue GI consulted, recommendations noted. Patient has a history of colon cancer with resection. Patient will need colonoscopy, GI to determine if this will be done inpatient or outpatient Acute kidney injury with CKD stage IIIb Continue diuresis Obese Lifestyle change CODE STATUS: Full DVT prophylaxis: Heparin Disposition: Hemoglobin stable at this time, awaiting echocardiogram and additional recommendations from cardiology. GI to evaluate anemia, possible colonoscopy. History Interval history: Patient seen and examined, no fevers chills chest pain or shortness of breath. Patient without any hematochezia or melena. Hospitalist Physical - Physical exam Narrative exam: General appearance: Present: no acute distress, well-nourished - EENT Eyes: Present: PERRL, EOM intact ENT: hearing intact, clear oral mucosa - Respiratory Respiratory effort: normal Respiratory: bilateral: CTA, negative: rales, rhonchi, wheezing - Cardiovascular Rhythm: regular Heart Sounds: Present: S1 & S2. Absent: rub, click - Extremities Extremities: no ischemia, No lower extremity bilateral edema, normal temperature, normal color, Full ROM - Abdominal General gastrointestinal: soft, non-tender, non-distended, normal bowel sounds - Integumentary Integumentary: Present: clear, warm, dry, normal turgor - Neurologic Neurologic: CNII-XII intact, no focal deficits, moves all extremities - Constitutional Vitals: Temp Pulse Resp BP Pulse Ox 98.3 F 83 18 108/56 94 04/08/20 07:26 04/08/20 07:26 04/08/20 07:26 04/08/20 07:26 04/08/20 07:26 General appearance: Present: no acute distress HEART Score - HEART Score EKG: Non-specific Age: > 65 Risk factors: > 3 risk factors or hx of atherosclerotic disease Troponin: Troponin T 0.050 ng/mL (0.00-0.029) H 04/06/20 00:31 Troponin: 1-3x normal limit - Critical Actions Critical Actions: 4-6 pts:12-16.6% risk of adverse cardiac event. Should be admitted Results - Labs CBC & Chem 7: 04/07/20 05:29 04/07/20 05:29 Labs: Laboratory Last Values WBC 12.7 K/mm3 (4.5-11.0) H 04/07/20 05:29 RBC 3.72 M/mm3 (3.65-5.03) 04/07/20 05:29 Hgb 8.0 gm/dl (11.8-15.2) L 04/07/20 05:29 Hct 26.6 % (35.5-45.6) L 04/07/20 05:29 MCV 71 fl (84-94) L 04/07/20 05:29 MCH 22 pg (28-32) L 04/07/20 05:29 MCHC 30 % (32-34) L 04/07/20 05:29 RDW 26.8 % (13.2-15.2) H 04/07/20 05:29 Plt Count 722 K/mm3 (140-440) H 04/07/20 05:29 Lymph % (Auto) 13.7 % (13.4-35.0) 04/05/20 11:34 [place] % (Auto) 10.6 % (0.0-7.3) H 04/05/20 11:34 Eos % (Auto) 9.6 % (0.0-4.3) H 04/05/20 11:34 Baso % (Auto) 1.3 % (0.0-1.8) 04/05/20 11:34 Lymph # (Auto) 1.4 K/mm3 (1.2-5.4) 04/05/20 11:34 [place] # (Auto) 1.1 K/mm3 (0.0-0.8) H 04/05/20 11:34 Eos # (Auto) 1.0 K/mm3 (0.0-0.4) H 04/05/20 11:34 Baso # (Auto) 0.1 K/mm3 (0.0-0.1) 04/05/20 11:34 Add Manual Diff Complete 04/06/20 05:21 Total Counted 100 04/06/20 05:21 Seg Neutrophils % 64.8 % (40.0-70.0) 04/05/20 11:34 Seg Neuts % (Manual) 68.0 % (40.0-70.0) 04/06/20 05:21 Lymphocytes % (Manual) 13.0 % (13.4-35.0) L 04/06/20 05:21 Monocytes % (Manual) 10.0 % (0.0-7.3) H 04/06/20 05:21 Eosinophils % (Manual) 9.0 % (0.0-4.3) H 04/06/20 05:21 Nucleated RBC % Not Reportable 04/06/20 05:21 Seg Neutrophils # 6.5 K/mm3 (1.8-7.7) 04/05/20 11:34 Seg Neutrophils # Man 9.5 K/mm3 (1.8-7.7) H 04/06/20 05:21 Band Neutrophils # 0.0 K/mm3 04/06/20 05:21 Lymphocytes # (Manual) 1.8 K/mm3 (1.2-5.4) 04/06/20 05:21 Abs React Lymphs (Man) 0.0 K/mm3 04/06/20 05:21 Monocytes # (Manual) 1.4 K/mm3 (0.0-0.8) H 04/06/20 05:21 Eosinophils # (Manual) 1.3 K/mm3 (0.0-0.4) H 04/06/20 05:21 Basophils # (Manual) 0.0 K/mm3 (0.0-0.1) 04/06/20 05:21 Metamyelocytes # 0.0 K/mm3 04/06/20 05:21 Myelocytes # 0.0 K/mm3 04/06/20 05:21 Promyelocytes # 0.0 K/mm3 04/06/20 05:21 Blast Cells # 0.0 K/mm3 04/06/20 05:21 WBC Morphology Not Reportable 04/06/20 05:21 Hypersegmented Neuts Not Reportable 04/06/20 05:21 Hyposegmented Neuts Not Reportable 04/06/20 05:21 Hypogranular Neuts Not Reportable 04/06/20 05:21 Smudge Cells Not Reportable 04/06/20 05:21 Toxic Granulation Not Reportable 04/06/20 05:21 Toxic Vacuolation Not Reportable 04/06/20 05:21 Dohle Bodies Not Reportable 04/06/20 05:21 Pelger-Huet Anomaly Not Reportable 04/06/20 05:21 Diamond Rods Not Reportable 04/06/20 05:21 Platelet Estimate Consistent w auto 04/06/20 05:21 Clumped Platelets Not Reportable 04/06/20 05:21 Plt Clumps, EDTA Not Reportable 04/06/20 05:21 Large Platelets Not Reportable 04/06/20 05:21 Giant Platelets Not Reportable 04/06/20 05:21 Platelet Satelliting Not Reportable 04/06/20 05:21 Plt Morphology Comment Not Reportable 04/06/20 05:21 RBC Morphology Not Reportable 04/06/20 05:21 Dimorphic RBCs Not Reportable 04/06/20 05:21 Polychromasia Not Reportable 04/06/20 05:21 Hypochromasia 2+ 04/06/20 05:21 Poikilocytosis Not Reportable 04/06/20 05:21 Anisocytosis 3+ 04/06/20 05:21 Microcytosis Not Reportable 04/06/20 05:21 Macrocytosis Not Reportable 04/06/20 05:21 Spherocytes Not Reportable 04/06/20 05:21 Pappenheimer Bodies Not Reportable 04/06/20 05:21 Sickle Cells Not Reportable 04/06/20 05:21 Target Cells Not Reportable 04/06/20 05:21 Tear Drop Cells Not Reportable 04/06/20 05:21 Ovalocytes Not Reportable 04/06/20 05:21 Helmet Cells Not Reportable 04/06/20 05:21 Devi-[place] Bodies Not Reportable 04/06/20 05:21 Newell Rings Not Reportable 04/06/20 05:21 Ozzy Cells Not Reportable 04/06/20 05:21 Bite Cells Not Reportable 04/06/20 05:21 Crenated Cell Not Reportable 04/06/20 05:21 Elliptocytes Few 04/06/20 05:21 Acanthocytes (Spur) Not Reportable 04/06/20 05:21 Rouleaux Not Reportable 04/06/20 05:21 Hemoglobin C Crystals Not Reportable 04/06/20 05:21 Schistocytes Not Reportable 04/06/20 05:21 Malaria parasites Not Reportable 04/06/20 05:21 Amadeo Bodies Not Reportable 04/06/20 05:21 Hem Pathologist Commnt No 04/06/20 05:21 PT 16.0 Sec. (12.2-14.9) H 04/06/20 05:21 INR 1.28 (0.87-1.13) H 04/06/20 05:21 APTT 34.0 Sec. (24.2-36.6) 04/05/20 11:34 Sodium 138 mmol/L (137-145) 04/07/20 05:29 Potassium 4.3 mmol/L (3.6-5.0) 04/07/20 05:29 Chloride 105.7 mmol/L (98-107) 04/07/20 05:29 Carbon Dioxide 23 mmol/L (22-30) 04/07/20 05:29 Anion Gap 14 mmol/L 04/07/20 05:29 BUN 26 mg/dL (9-20) H 04/07/20 05:29 Creatinine 2.0 mg/dL (0.8-1.3) H 04/07/20 05:29 Estimated GFR 40 ml/min 04/07/20 05:29 BUN/Creatinine Ratio 13 % 04/07/20 05:29 Glucose 120 mg/dL (75-100) H 04/07/20 05:29 POC Glucose 130 mg/dL (70-105) H 04/07/20 21:59 Calcium 9.8 mg/dL (8.4-10.2) 04/07/20 05:29 Magnesium 1.80 mg/dL (1.7-2.3) 04/06/20 00:31 Iron 16 ug/dL (49-181) L 04/06/20 18:20 TIBC 368 mcg/dL (250-450) 04/06/20 18:20 Ferritin 14.0 ng/mL (30.0-300.0) L 04/06/20 18:20 Total Bilirubin 0.50 mg/dL (0.1-1.2) 04/05/20 11:34 AST 20 units/L (5-40) 04/05/20 11:34 ALT 14 units/L (7-56) 04/05/20 11:34 Alkaline Phosphatase 71 units/L (35-129) 04/05/20 11:34 Total Creatine Kinase 232 units/L (55-170) H 04/05/20 11:40 CK-MB (CK-2) 7.9 ng/mL (0.0-4.0) H 04/05/20 11:34 CK-MB (CK-2) Rel Index 3.4 (0-4) 04/05/20 11:34 Troponin T 0.050 ng/mL (0.00-0.029) H 04/06/20 00:31 NT-Pro-B Natriuret Pep 1809 pg/mL (0-900) H 04/05/20 11:34 Total Protein 7.3 g/dL (6.3-8.2) 04/05/20 11:34 Albumin 4.1 g/dL (3.9-5) 04/05/20 11:34 Albumin/Globulin Ratio 1.3 % 04/05/20 11:34 Triglycerides 95 mg/dL (2-149) 04/05/20 11:34 Cholesterol 161 mg/dL (50-199) 04/05/20 11:34 LDL Cholesterol Direct 111 mg/dL (50-130) 04/05/20 11:34 HDL Cholesterol 44 mg/dL (40-59) 04/05/20 11:34 Cholesterol/HDL Ratio 3.65 % 04/05/20 11:34 Urine Color Colorless (Yellow) 04/05/20 18:00 Urine Turbidity Clear (Clear) 04/05/20 18:00 Urine pH 6.0 (5.0-7.0) 04/05/20 18:00 Ur Specific [place] 1.005 (1.003-1.030) 04/05/20 18:00 Urine Protein 30 mg/dl mg/dL (Negative) 04/05/20 18:00 Urine Glucose (UA) Neg mg/dL (Negative) 04/05/20 18:00 Urine Ketones Neg mg/dL (Negative) 04/05/20 18:00 Urine Blood Sm (Negative) 04/05/20 18:00 Urine Nitrite Neg (Negative) 04/05/20 18:00 Ur Reducing Substances Not Reportable 04/05/20 18:00 Urine Bilirubin Neg (Negative) 04/05/20 18:00 Urine Ictotest Not Reportable 04/05/20 18:00 Urine Urobilinogen < 2.0 mg/dL (<2.0) 04/05/20 18:00 Ur Leukocyte Esterase Neg (Negative) 04/05/20 18:00 Urine WBC (Auto) < 1.0 /HPF (0.0-6.0) 04/05/20 18:00 Urine RBC (Auto) < 1.0 /HPF (0.0-6.0) 04/05/20 18:00 Nasal Screen MRSA (PCR) Negative (Negative) 04/06/20 06:00 Blood Type A POSITIVE 04/05/20 13:55 Antibody Screen Negative 04/05/20 13:55 Crossmatch See Detail 04/05/20 13:55 Microbiology: Microbiology 04/07/20 10:00 Stool Stool Occult Blood (JONEL) - Final Kumar/IV: Voiding Method Toilet IV Catheter Type [Right Peripheral IV Antecubital] Active Medications - Current Medications Current Medications: Generic Name Dose Route Start Last Admin Trade Name Freq PRN Reason Stop Dose Admin Acetaminophen 650 mg 04/05/20 14:29 Acetaminophen 325 Mg Tab PO Q4H PRN Pain MILD(1-3)/Fever >100.5/HENRY Aspirin 81 mg 04/06/20 10:00 04/08/20 08:59 Aspirin Ec 81 Mg Tab PO 81 mg QDAY TREY Administration Atorvastatin Calcium 40 mg 04/05/20 22:00 04/07/20 21:19 Atorvastatin 40 Mg Tab PO 40 mg QHS TREY Administration Carvedilol 6.25 mg 04/06/20 10:00 04/08/20 08:59 Carvedilol 6.25 Mg Tab PO 6.25 mg BID TREY Administration Clopidogrel Bisulfate 75 mg 04/06/20 10:00 04/08/20 08:59 Clopidogrel 75 Mg Tab PO 75 mg QDAY TREY Administration Dextrose 50 ml 04/05/20 14:29 Dextrose 50% In Water (25gm) 50 Ml Syringe IV Q30MIN PRN Hypoglycemia Protocol Doxazosin Mesylate 2 mg 04/05/20 22:00 04/07/20 21:19 Doxazosin 1 Mg Tab PO 2 mg QHS TREY Administration Furosemide 40 mg 04/05/20 18:00 04/08/20 06:07 Furosemide 40 Mg/4 Ml Inj IV 40 mg BID@0600,1800 TREY Administration Heparin Sodium (Porcine) 5,000 unit 04/05/20 22:00 04/08/20 06:06 Heparin 5,000 Unit/1 Ml Vial SUB-Q 5,000 unit Q8HR TREY Administration Hydralazine HCl 20 mg 04/07/20 12:43 Hydralazine 20 Mg/1 Ml Inj IV Q2HR PRN Give if SBP>180 DBP>100 Insulin Human Regular 0 units 04/05/20 16:30 04/08/20 07:40 Insulin Regular, Human 100 Units/1 Ml SUB-Q Not Given ACHS TREY Protocol Isosorbide Dinitrate/Hydralazine 1 each 04/05/20 22:00 04/08/20 06:06 Isosorb Dinit/Hydralazine 20-37.5mg Tab PO 1 each Q8HR TREY Administration Magnesium Hydroxide 30 ml 04/05/20 14:29 04/07/20 09:29 Magnesium Hydroxide (Mom) Oral Liqd Udc PO 30 ml Q4H PRN Administration Constipation Miscellaneous Medication 10 ml 04/05/20 22:00 Dorzolamide Hcl/Timolol Maleat [Cosopt Eye Drops] OP Q12HR TREY Multivitamins/Minerals 1 each 04/06/20 10:00 04/08/20 08:59 Multivitamins,Ther W-Minerals Tab PO 1 each QDAY TREY Administration Ondansetron HCl 4 mg 04/05/20 14:29 Ondansetron 4 Mg/2 Ml Inj IV Q8H PRN Nausea And Vomiting Pantoprazole Sodium 40 mg 04/06/20 20:00 04/08/20 08:59 Pantoprazole 40 Mg Tab PO 40 mg QDAC TREY Administration Sodium Chloride 10 ml 04/05/20 22:00 04/08/20 08:59 Sodium Chloride 0.9% 10 Ml Flush Syringe IV 10 ml BID TREY Administration Sodium Chloride 10 ml 04/05/20 14:29 04/06/20 06:12 Sodium Chloride 0.9% 10 Ml Flush Syringe IV 10 ml PRN PRN Administration LINE FLUSH Spironolactone 25 mg 04/06/20 10:00 04/07/20 09:29 Spironolactone 25 Mg Tab PO 25 mg QDAY TREY Administration Nutrition/Malnutrition Assess - Dietary Evaluation Nutrition/Malnutrition Findings: Nutrition Notes Start: 04/06/20 11:39 Freq: Status: Active Protocol: Document 04/06/20 11:39 MARI (Rec: 04/06/20 11:40 MARI [id number]) Co-Sign 04/06/20 11:39 LP Nutrition Notes Need for Assessment generated from: MD Order Initial or Follow up Brief Note Current Diagnosis Coronary Artery Disease, Hypertension,Heart Failure Other Pertinent Diagnosis Anemia, PMH: colon CA Current Diet Cardiac with Consistent CHO Subjective/Other Information MD consult for diet education. Pt denied education at this time. Nutrition Intervention Revisit per MD consult or patient Sign Off request:
[2020-04-08 11:51] LABS: Mean Corpuscular HGB Conc 30 % (32-34); Mean Corpuscular Volume 70 fl (84-94); Platelet Count 813 K/mm3 (140-440)
[2020-04-08 11:56] LABS: Hematocrit 28.9 % (35.5-45.6); Hemoglobin 8.5 gm/dl (11.8-15.2); Red Cell Distribution Width 27.9 % (13.2-15.2)
--- NOTE | 2020-04-08 12:55 | Progress Note ---
Assessment and Plan Symptomatic anemia s/p transfusion of PRBCs Thrombocytosis Hx of ischemic cardiomyopathy EF 25-30% by echo 10/2019 Hx of CAD -PCI of RCA 10/2019 on plavix and aspirin NSVT on telemetry Bifascicular block on EKG Acute renal failure on CKD Hypertension Hg is gradually increasing. Patient is feeling better and denies dyspnea / CP. Await echo. Will consider further evaluation pending findings. Continue medical therapy for dilated cardiomyopathy and coronary artery disease. Subjective Date of service: 04/08/20 Principal diagnosis: Symptomatic Anemia Interval history: Feels better. No CP/SOB. Tele - SR, NSVT x7 beats Objective Vital Signs Temp Pulse Pulse Pulse Resp BP Pulse Ox 04/08/20 11:17 98.0 F 74 18 156/74 96 04/08/20 10:00 83 04/08/20 07:26 98.3 F 83 18 108/56 94 04/08/20 06:06 78 144/58 04/08/20 05:10 97.4 F L 78 18 144/58 93 04/08/20 00:51 94.8 F L 82 18 110/37 94 04/07/20 22:00 82 04/07/20 21:45 82 179/85 04/07/20 21:19 82 179/85 04/07/20 20:31 98.2 F 83 18 180/88 96 04/07/20 20:00 83 83 19 04/07/20 17:22 154/98 69 L 04/07/20 17:18 143/64 04/07/20 16:13 79 139/63 95 04/07/20 16:00 98.6 F 04/07/20 13:06 78 151/72 - Physical Examination General: Appears Well HEENT: Positive: PERRL Neck: Positive: trachea midline Cardiac: Positive: Reg Rate and Rhythm Lungs: Positive: clear to auscultation Neuro: Positive: Grossly Intact Abdomen: Positive: Soft. Negative: Tender Extremities: Absent: edema (trace) - Labs and Meds CBC 04/08/20 Range/Units 11:19 WBC 12.3 H (4.5-11.0) K/mm3 RBC 4.10 (3.65-5.03) M/mm3 Hgb 8.5 L (11.8-15.2) gm/dl Hct 28.9 L (35.5-45.6) % Plt Count 813 H (140-440) K/mm3 Comprehensive Metabolic Panel 04/08/20 Range/Units 11:19 Sodium 136 L (137-145) mmol/L Potassium 4.9 (3.6-5.0) mmol/L Chloride 102.8 (98-107) mmol/L Carbon Dioxide 28 (22-30) mmol/L BUN 28 H (9-20) mg/dL Creatinine 2.2 H (0.8-1.3) mg/dL Glucose 142 H (75-100) mg/dL Calcium 10.0 (8.4-10.2) mg/dL
[2020-04-08] MEDS: SPIRONOLACTONE 25 MG TAB PO SCH (13:39)
--- NOTE | 2020-04-08 15:14 | Gastroenterology Progress Note ---
Assessment and Plan - Patient Problems (1) Symptomatic anemia Current Visit: Yes Status: Acute Plan to address problem: - No gross bleeding, despite use of ASA/plavix (and hct slowly increasing). - Will continue daily protonix/MVI, and await Cards recs re:stress test. - Continue diuresis, and cardiac meds. - EGD/colon 2016 small otherwise negative, colon 2013 colon cancer (resected). - Will get EGD/colon when cardiopulmonary status improved/stabilized. Subjective Date of service: 04/08/20 Principal diagnosis: Symptomatic Anemia Interval history: The patient feels well without N/V/abdominal pain/melena/hematemesis. Objective - Constitutional Vitals: Temp Pulse Resp BP Pulse Ox 98.0 F 74 18 156/74 96 04/08/20 11:17 04/08/20 11:17 04/08/20 11:17 04/08/20 11:17 04/08/20 11:17 General appearance: no acute distress - Respiratory Respiratory effort: normal Respiratory: bilateral: CTA - Cardiovascular Rhythm: regular Heart Sounds: Present: S1 & S2 - Gastrointestinal General gastrointestinal: Present: soft, non-tender, non-distended - Labs CBC & Chem 7: 04/08/20 11:19 04/08/20 11:19 Labs: Laboratory Results - last 24 hr 04/07/20 04/07/20 04/08/20 15:40 21:59 07:25 WBC RBC Hgb Hct MCV MCH MCHC RDW Plt Count Sodium Potassium Chloride Carbon Dioxide Anion Gap BUN Creatinine Estimated GFR BUN/Creatinine Ratio Glucose POC Glucose 108 H 130 H 136 H Calcium 04/08/20 04/08/20 04/08/20 11:19 11:19 11:39 WBC 12.3 H RBC 4.10 Hgb 8.5 L Hct 28.9 L MCV 70 L MCH 21 L MCHC 30 L RDW 27.9 H Plt Count 813 H Sodium 136 L Potassium 4.9 Chloride 102.8 Carbon Dioxide 28 Anion Gap 10 BUN 28 H Creatinine 2.2 H Estimated GFR 36 BUN/Creatinine Ratio 13 Glucose 142 H POC Glucose 133 H Calcium 10.0
[2020-04-08] MEDS: DOXAZOSIN 1 MG TAB PO SCH (21:57)
[2020-04-09] MEDS: FUROSEMIDE 40 MG/4 ML INJ IV SCH ×2 (05:24→17:34)
[2020-04-09] MEDS: ISOSORB DINIT/HYDRALAZINE 20-37.5MG TAB PO SCH ×3 (05:24→21:19)
[2020-04-09] MEDS: HEPARIN 5,000 UNIT/1 ML VIAL SUB-Q SCH ×3 (05:24→21:21)
[2020-04-09 05:55] LABS: Hematocrit 27.4 % (35.5-45.6); Hemoglobin 8.2 gm/dl (11.8-15.2); Mean Corpuscular HGB Conc 30 % (32-34); Mean Corpuscular Volume 71 fl (84-94); Platelet Count 751 K/mm3 (140-440); Red Blood Count 3.86 M/mm3 (3.65-5.03)
[2020-04-09 06:00] LABS: Red Cell Distribution Width 27.5 % (13.2-15.2)
[2020-04-09] MEDS: CLOPIDOGREL 75 MG TAB PO SCH (09:12)
[2020-04-09] MEDS: MULTIVITAMINS,THER W-MINERALS TAB PO SCH (09:12)
[2020-04-09] MEDS: INSULIN REGULAR, HUMAN 100 UNITS/1 ML SUB-Q SCH ×4 (09:12→21:46)
[2020-04-09] MEDS: SPIRONOLACTONE 25 MG TAB PO SCH (09:13)
[2020-04-09] MEDS: ASPIRIN EC 81 MG TAB PO SCH (09:13)
[2020-04-09] MEDS: PANTOPRAZOLE 40 MG TAB PO SCH (09:13)
[2020-04-09] MEDS: carvediloL 6.25 MG TAB PO SCH ×2 (09:13→21:20)
--- NOTE | 2020-04-09 12:00 | Gastroenterology Progress Note ---
Assessment and Plan - Patient Problems (1) Symptomatic anemia Current Visit: Yes Status: Acute Plan to address problem: - No gross bleeding, despite use of ASA/plavix (and hct stable). - Will continue daily protonix/MVI, and await Cards recs re:stress test. - Continue diuresis, and cardiac meds. - EGD/colon 2016 small otherwise negative, colon 2014 colon cancer (resected). - Will get EGD/colon when cardiopulmonary status improved/stabilized. Subjective Date of service: 04/09/20 Principal diagnosis: Symptomatic Anemia Interval history: The patient is doing well without gross bleeding, abdominal pain, nausea or vomiting. Objective - Constitutional Vitals: Temp Pulse Resp BP Pulse Ox 98.2 F 89 19 134/78 99 04/09/20 07:30 04/09/20 10:00 04/09/20 10:00 04/09/20 09:13 04/09/20 10:00 General appearance: no acute distress - Respiratory Respiratory effort: normal Respiratory: bilateral: CTA - Cardiovascular Rhythm: regular Heart Sounds: Present: S1 & S2 - Gastrointestinal General gastrointestinal: Present: soft, non-tender, non-distended - Labs CBC & Chem 7: 04/09/20 05:20 04/09/20 05:20 Labs: Laboratory Results - last 24 hr 04/08/20 04/08/20 04/08/20 07:25 11:19 11:39 WBC RBC Hgb Hct MCV MCH MCHC RDW Plt Count Sodium 136 L Potassium 4.9 Chloride 102.8 Carbon Dioxide 28 Anion Gap 10 BUN 28 H Creatinine 2.2 H Estimated GFR 36 BUN/Creatinine Ratio 13 Glucose 142 H POC Glucose 136 H 133 H Calcium 10.0 04/08/20 04/08/20 04/09/20 15:18 21:29 05:20 WBC 12.8 H RBC 3.86 Hgb 8.2 L Hct 27.4 L MCV 71 L MCH 21 L MCHC 30 L RDW 27.5 H Plt Count 751 H Sodium Potassium Chloride Carbon Dioxide Anion Gap BUN Creatinine Estimated GFR BUN/Creatinine Ratio Glucose POC Glucose 133 H 106 H Calcium 04/09/20 04/09/20 05:20 08:12 WBC RBC Hgb Hct MCV MCH MCHC RDW Plt Count Sodium 138 Potassium 4.3 Chloride 104.1 Carbon Dioxide 25 Anion Gap 13 BUN 31 H Creatinine 2.2 H Estimated GFR 36 BUN/Creatinine Ratio 14 Glucose 112 H POC Glucose 120 H Calcium 10.0
--- NOTE | 2020-04-09 12:09 | Progress Note ---
Assessment and Plan - Patient Problems (1) Coronary artery disease Current Visit: Yes Status: Acute Plan to address problem: Patient has coronary artery disease, status post coronary stent placement in mid 2019, remains on dual antiplatelet therapy. We will order a predischarge Lexiscan thallium stress test. Subjective Date of service: 04/09/20 Principal diagnosis: Symptomatic Anemia Interval history: We have noted the assessments of gastroenterology. Patient feels better, and is awaiting a predischarge, Lexiscan thallium stress test for further assessment of his coronary artery disease. Objective Vital Signs Temp Pulse Pulse Pulse Resp BP BP 04/09/20 11:57 97.9 F 87 19 136/78 04/09/20 10:00 75 89 89 19 04/09/20 09:13 87 134/78 04/09/20 07:30 98.2 F 83 126/53 04/09/20 05:24 80 133/66 04/09/20 05:16 98.3 F 80 18 133/66 04/09/20 00:24 97.8 F 81 20 121/49 04/08/20 22:00 85 85 18 04/08/20 21:59 85 173/83 04/08/20 21:58 85 173/83 04/08/20 21:57 85 173/83 04/08/20 20:18 98.1 F 85 18 173/83 04/08/20 15:19 98.3 F 80 18 125/50 Pulse Ox 04/09/20 11:57 04/09/20 10:00 99 04/09/20 09:13 04/09/20 07:30 99 04/09/20 05:24 04/09/20 05:16 95 04/09/20 00:24 94 04/08/20 22:00 95 04/08/20 21:59 04/08/20 21:58 04/08/20 21:57 04/08/20 20:18 94 04/08/20 15:19 92 - Physical Examination General: Appears Well HEENT: Positive: PERRL Neck: Positive: trachea midline Cardiac: Positive: Reg Rate and Rhythm Lungs: Positive: Decreased Breath Sounds Neuro: Positive: Grossly Intact Abdomen: Positive: Soft. Negative: Tender Skin: Positive: Clear Extremities: Absent: edema (trace) - Labs and Meds CBC 04/09/20 Range/Units 05:20 WBC 12.8 H (4.5-11.0) K/mm3 RBC 3.86 (3.65-5.03) M/mm3 Hgb 8.2 L (11.8-15.2) gm/dl Hct 27.4 L (35.5-45.6) % Plt Count 751 H (140-440) K/mm3 Comprehensive Metabolic Panel 04/09/20 Range/Units 05:20 Sodium 138 (137-145) mmol/L Potassium 4.3 (3.6-5.0) mmol/L Chloride 104.1 (98-107) mmol/L Carbon Dioxide 25 (22-30) mmol/L BUN 31 H (9-20) mg/dL Creatinine 2.2 H (0.8-1.3) mg/dL Glucose 112 H (75-100) mg/dL Calcium 10.0 (8.4-10.2) mg/dL
--- NOTE | 2020-04-09 15:52 | Progress Note ---
Assessment and Plan Assessment and plan: 69-year-old male who presents with acute on chronic heart failure exacerbation with symptomatic microcytic anemia Plan: Acute on chronic systolic heart failure exacerbation Cardiology consulted Echocardiogram from 10/27/2019 shows EF of 25 to 30% 04/09/2020 echocardiogram showing LVEF of 40 to 45%, mild concentric left ventricular hypertrophy. Diuresis, furosemide 40 mg IV twice daily Continue carvedilol Lexiscan to be done on 04/10/2020 History of CAD History of PCI on 10/27/2019 Continue Plavix and aspirin, atorvastatin History of left anterior fascicular block History of right bundle branch block Chronic, seen on repeat EKG Hypertension Spironolactone, isosorbide dinitrate/hydralazine, doxazosin, carvedilol Microcytic anemia This seems to be a chronic issue GI consulted, recommendations noted. Patient has a history of colon cancer with resection. Patient will need colonoscopy, GI to determine if this will be done inpatient or outpatient Acute kidney injury with vasomotor nephropathy Chronic kidney disease stage IIIb Continue diuresis Obese Lifestyle change CODE STATUS: Full DVT prophylaxis: Heparin Disposition: Ashlyn scan tomorrow morning, then colonoscopy if no cardiac abnormalities seen on Lexiscan History Interval history: Patient seen and examined, no complaints, breathing okay, no melena or hematochezia. Hospitalist Physical - Physical exam Narrative exam: General appearance: Present: no acute distress, well-nourished - EENT Eyes: Present: PERRL, EOM intact ENT: hearing intact, clear oral mucosa - Respiratory Respiratory effort: normal Respiratory: bilateral: CTA, negative: rales, rhonchi, wheezing - Cardiovascular Rhythm: regular Heart Sounds: Present: S1 & S2. Absent: rub, click - Extremities Extremities: no ischemia, No lower extremity bilateral edema, normal temperature, normal color, Full ROM - Abdominal General gastrointestinal: soft, non-tender, non-distended, normal bowel sounds - Integumentary Integumentary: Present: clear, warm, dry, normal turgor - Neurologic Neurologic: CNII-XII intact, no focal deficits, moves all extremities - Constitutional Vitals: Temp Pulse Resp BP Pulse Ox 97.9 F 78 19 136/78 99 04/09/20 11:57 04/09/20 13:16 04/09/20 11:57 04/09/20 13:16 04/09/20 10:00 General appearance: Present: no acute distress HEART Score - HEART Score EKG: Non-specific Age: > 65 Risk factors: > 3 risk factors or hx of atherosclerotic disease Troponin: Troponin T 0.050 ng/mL (0.00-0.029) H 04/06/20 00:31 Troponin: 1-3x normal limit - Critical Actions Critical Actions: 4-6 pts:12-16.6% risk of adverse cardiac event. Should be admitted Results - Labs CBC & Chem 7: 04/09/20 05:20 04/09/20 05:20 Labs: Laboratory Last Values WBC 12.8 K/mm3 (4.5-11.0) H 04/09/20 05:20 RBC 3.86 M/mm3 (3.65-5.03) 04/09/20 05:20 Hgb 8.2 gm/dl (11.8-15.2) L 04/09/20 05:20 Hct 27.4 % (35.5-45.6) L 04/09/20 05:20 MCV 71 fl (84-94) L 04/09/20 05:20 MCH 21 pg (28-32) L 04/09/20 05:20 MCHC 30 % (32-34) L 04/09/20 05:20 RDW 27.5 % (13.2-15.2) H 04/09/20 05:20 Plt Count 751 K/mm3 (140-440) H 04/09/20 05:20 Lymph % (Auto) 13.7 % (13.4-35.0) 04/05/20 11:34 [place] % (Auto) 10.6 % (0.0-7.3) H 04/05/20 11:34 Eos % (Auto) 9.6 % (0.0-4.3) H 04/05/20 11:34 Baso % (Auto) 1.3 % (0.0-1.8) 04/05/20 11:34 Lymph # (Auto) 1.4 K/mm3 (1.2-5.4) 04/05/20 11:34 [place] # (Auto) 1.1 K/mm3 (0.0-0.8) H 04/05/20 11:34 Eos # (Auto) 1.0 K/mm3 (0.0-0.4) H 04/05/20 11:34 Baso # (Auto) 0.1 K/mm3 (0.0-0.1) 04/05/20 11:34 Add Manual Diff Complete 04/06/20 05:21 Total Counted 100 04/06/20 05:21 Seg Neutrophils % 64.8 % (40.0-70.0) 04/05/20 11:34 Seg Neuts % (Manual) 68.0 % (40.0-70.0) 04/06/20 05:21 Lymphocytes % (Manual) 13.0 % (13.4-35.0) L 04/06/20 05:21 Monocytes % (Manual) 10.0 % (0.0-7.3) H 04/06/20 05:21 Eosinophils % (Manual) 9.0 % (0.0-4.3) H 04/06/20 05:21 Nucleated RBC % Not Reportable 04/06/20 05:21 Seg Neutrophils # 6.5 K/mm3 (1.8-7.7) 04/05/20 11:34 Seg Neutrophils # Man 9.5 K/mm3 (1.8-7.7) H 04/06/20 05:21 Band Neutrophils # 0.0 K/mm3 04/06/20 05:21 Lymphocytes # (Manual) 1.8 K/mm3 (1.2-5.4) 04/06/20 05:21 Abs React Lymphs (Man) 0.0 K/mm3 04/06/20 05:21 Monocytes # (Manual) 1.4 K/mm3 (0.0-0.8) H 04/06/20 05:21 Eosinophils # (Manual) 1.3 K/mm3 (0.0-0.4) H 04/06/20 05:21 Basophils # (Manual) 0.0 K/mm3 (0.0-0.1) 04/06/20 05:21 Metamyelocytes # 0.0 K/mm3 04/06/20 05:21 Myelocytes # 0.0 K/mm3 04/06/20 05:21 Promyelocytes # 0.0 K/mm3 04/06/20 05:21 Blast Cells # 0.0 K/mm3 04/06/20 05:21 WBC Morphology Not Reportable 04/06/20 05:21 Hypersegmented Neuts Not Reportable 04/06/20 05:21 Hyposegmented Neuts Not Reportable 04/06/20 05:21 Hypogranular Neuts Not Reportable 04/06/20 05:21 Smudge Cells Not Reportable 04/06/20 05:21 Toxic Granulation Not Reportable 04/06/20 05:21 Toxic Vacuolation Not Reportable 04/06/20 05:21 Dohle Bodies Not Reportable 04/06/20 05:21 Pelger-Huet Anomaly Not Reportable 04/06/20 05:21 Diamond Rods Not Reportable 04/06/20 05:21 Platelet Estimate Consistent w auto 04/06/20 05:21 Clumped Platelets Not Reportable 04/06/20 05:21 Plt Clumps, EDTA Not Reportable 04/06/20 05:21 Large Platelets Not Reportable 04/06/20 05:21 Giant Platelets Not Reportable 04/06/20 05:21 Platelet Satelliting Not Reportable 04/06/20 05:21 Plt Morphology Comment Not Reportable 04/06/20 05:21 RBC Morphology Not Reportable 04/06/20 05:21 Dimorphic RBCs Not Reportable 04/06/20 05:21 Polychromasia Not Reportable 04/06/20 05:21 Hypochromasia 2+ 04/06/20 05:21 Poikilocytosis Not Reportable 04/06/20 05:21 Anisocytosis 3+ 04/06/20 05:21 Microcytosis Not Reportable 04/06/20 05:21 Macrocytosis Not Reportable 04/06/20 05:21 Spherocytes Not Reportable 04/06/20 05:21 Pappenheimer Bodies Not Reportable 04/06/20 05:21 Sickle Cells Not Reportable 04/06/20 05:21 Target Cells Not Reportable 04/06/20 05:21 Tear Drop Cells Not Reportable 04/06/20 05:21 Ovalocytes Not Reportable 04/06/20 05:21 Helmet Cells Not Reportable 04/06/20 05:21 [place] Bodies Not Reportable 04/06/20 05:21 [place] Rings Not Reportable 04/06/20 05:21 Ozzy Cells Not Reportable 04/06/20 05:21 Bite Cells Not Reportable 04/06/20 05:21 Crenated Cell Not Reportable 04/06/20 05:21 Elliptocytes Few 04/06/20 05:21 Acanthocytes (Spur) Not Reportable 04/06/20 05:21 Rouleaux Not Reportable 04/06/20 05:21 Hemoglobin C Crystals Not Reportable 04/06/20 05:21 Schistocytes Not Reportable 04/06/20 05:21 Malaria parasites Not Reportable 04/06/20 05:21 Amadeo Bodies Not Reportable 04/06/20 05:21 Hem Pathologist Commnt No 04/06/20 05:21 PT 16.0 Sec. (12.2-14.9) H 04/06/20 05:21 INR 1.28 (0.87-1.13) H 04/06/20 05:21 APTT 34.0 Sec. (24.2-36.6) 04/05/20 11:34 Sodium 138 mmol/L (137-145) 04/09/20 05:20 Potassium 4.3 mmol/L (3.6-5.0) 04/09/20 05:20 Chloride 104.1 mmol/L (98-107) 04/09/20 05:20 Carbon Dioxide 25 mmol/L (22-30) 04/09/20 05:20 Anion Gap 13 mmol/L 04/09/20 05:20 BUN 31 mg/dL (9-20) H 04/09/20 05:20 Creatinine 2.2 mg/dL (0.8-1.3) H 04/09/20 05:20 Estimated GFR 36 ml/min 04/09/20 05:20 BUN/Creatinine Ratio 14 % 04/09/20 05:20 Glucose 112 mg/dL (75-100) H 04/09/20 05:20 POC Glucose 120 mg/dL (70-105) H 04/09/20 08:12 Calcium 10.0 mg/dL (8.4-10.2) 04/09/20 05:20 Magnesium 1.80 mg/dL (1.7-2.3) 04/06/20 00:31 Iron 16 ug/dL (49-181) L 04/06/20 18:20 TIBC 368 mcg/dL (250-450) 04/06/20 18:20 Ferritin 14.0 ng/mL (30.0-300.0) L 04/06/20 18:20 Total Bilirubin 0.50 mg/dL (0.1-1.2) 04/05/20 11:34 AST 20 units/L (5-40) 04/05/20 11:34 ALT 14 units/L (7-56) 04/05/20 11:34 Alkaline Phosphatase 71 units/L (35-129) 04/05/20 11:34 Total Creatine Kinase 232 units/L (55-170) H 04/05/20 11:40 CK-MB (CK-2) 7.9 ng/mL (0.0-4.0) H 04/05/20 11:34 CK-MB (CK-2) Rel Index 3.4 (0-4) 04/05/20 11:34 Troponin T 0.050 ng/mL (0.00-0.029) H 04/06/20 00:31 NT-Pro-B Natriuret Pep 1809 pg/mL (0-900) H 04/05/20 11:34 Total Protein 7.3 g/dL (6.3-8.2) 04/05/20 11:34 Albumin 4.1 g/dL (3.9-5) 04/05/20 11:34 Albumin/Globulin Ratio 1.3 % 04/05/20 11:34 Triglycerides 95 mg/dL (2-149) 04/05/20 11:34 Cholesterol 161 mg/dL (50-199) 04/05/20 11:34 LDL Cholesterol Direct 111 mg/dL (50-130) 04/05/20 11:34 HDL Cholesterol 44 mg/dL (40-59) 04/05/20 11:34 Cholesterol/HDL Ratio 3.65 % 04/05/20 11:34 Urine Color Colorless (Yellow) 04/05/20 18:00 Urine Turbidity Clear (Clear) 04/05/20 18:00 Urine pH 6.0 (5.0-7.0) 04/05/20 18:00 Ur Specific [place] 1.005 (1.003-1.030) 04/05/20 18:00 Urine Protein 30 mg/dl mg/dL (Negative) 04/05/20 18:00 Urine Glucose (UA) Neg mg/dL (Negative) 04/05/20 18:00 Urine Ketones Neg mg/dL (Negative) 04/05/20 18:00 Urine Blood Sm (Negative) 04/05/20 18:00 Urine Nitrite Neg (Negative) 04/05/20 18:00 Ur Reducing Substances Not Reportable 04/05/20 18:00 Urine Bilirubin Neg (Negative) 04/05/20 18:00 Urine Ictotest Not Reportable 04/05/20 18:00 Urine Urobilinogen < 2.0 mg/dL (<2.0) 04/05/20 18:00 Ur Leukocyte Esterase Neg (Negative) 04/05/20 18:00 Urine WBC (Auto) < 1.0 /HPF (0.0-6.0) 04/05/20 18:00 Urine RBC (Auto) < 1.0 /HPF (0.0-6.0) 04/05/20 18:00 Nasal Screen MRSA (PCR) Negative (Negative) 04/06/20 06:00 Blood Type A POSITIVE 04/05/20 13:55 Antibody Screen Negative 04/05/20 13:55 Crossmatch See Detail 04/05/20 13:55 - Diagnostic Impressions Diagnostic Impressions: Echocardiogram 04/09/20 10:05 Transthoracic Echocardiogram Indication: SOB BP: 134/78 HR: 75 Conclusions *The left ventricular chamber size is mildly dilated. *Mild concentric left ventricular hypertrophy is observed. *Global left ventricular systolic function is mildly decreased. *The estimated ejection fraction is 40-45%. *The left atrium is mildly dilated. *There is moderate mitral regurgitation. *There is mild tricuspid regurgitation. *There is evidence of mild pulmonary hypertension. *The right ventricular systolic pressure is calculated at 31 mmHg. Findings Left Ventricle: The left ventricular chamber size is mildly dilated. Mild concentric left ventricular hypertrophy is observed. Global left ventricular systolic function is mildly decreased. The estimated ejection fraction is 40-45%. Left Atrium: The left atrium is mildly dilated. Right Ventricle: The right ventricular cavity size is normal. The right ventricular global systolic function is normal. Right Atrium: The right atrial cavity size is normal. Aortic Valve: The aortic valve is trileaflet. There is no evidence of aortic regurgitation. There is no evidence of aortic stenosis. Mitral Valve: The mitral valve leaflets appear normal. There is moderate mitral regurgitation. There is no evidence of mitral stenosis. Tricuspid Valve: There is mild tricuspid regurgitation. The right ventricular systolic pressure is calculated at 31 mmHg. There is evidence of mild pulmonary hypertension. Pericardium: There is no pericardial effusion. Aorta: There is no dilatation of the ascending aorta. There is no dilatation of the aortic root. Venous: The inferior vena cava appears normal in size. Measurements Chambers 2D Name Value Normal Range IVSd (2D) 1.07 cm (0.6 - 1.1) LVPWd (2D) 1 cm (0.6 - 1.1) LVIDd (2D) 5.84 cm (3.7 - 5.6) LVIDs (2D) 4.78 cm (2 - 3.8) LV FS (2D) 18.17 % - EF Teichholz (2D) 37.11 % - Ao root diameter (2D) 2.82 cm (2 - 3.7) Volumes/Mass Name Value Normal Range LA ESV SP 4CH (A/L) 30.39 ml - LA ESV SP 2CH (A/L) 46.67 ml - LA ESV BP (A/L) 37.73 ml - LA ESV BP (A/L) index 19.55 ml/m2 - LA ESV SP 4CH (MOD) 27.8 ml - LA ESV SP 2CH (MOD) 46.07 ml - LA ESV BP (MOD) 35.73 ml - LA ESV BP (MOD) index 18.51 ml/m2 - Diastolic/Systolic Function Name Value Normal Range MV E-wave Vmax 0.87 m/sec - MV deceleration time 258.82 msec - MV A-wave Vmax 1.06 m/sec - MV E:A ratio 0.82 ratio - Aortic Valve Name Value Normal Range AV Vmax 1.8 m/sec - AV VTI 28.98 cm - AV peak gradient 13.02 mmHg - AV mean gradient 5.87 mmHg - LVOT diameter 2.07 cm - LVOT Vmax 0.9 m/sec - LVOT VTI 16.24 cm - LVOT peak gradient 3.26 mmHg - LVOT mean gradient 1.87 mmHg - SV LVOT 54.62 ml - RAMY (continuity Vmax) 1.68 cm2 - RAMY (continuity VTI) 1.89 cm2 - Mitral Valve Name Value Normal Range MR Vmax 5.65 m/sec - Tricuspid Valve Name Value Normal Range TR Vmax 2.57 m/sec - TR peak gradient 26 mmHg - RAP 3 mmHg - RVSP 31 mmHg - Pulmonic Valve/Qp:Qs Name Value Normal Range PV Vmax 1.02 m/sec - PV peak gradient 4.17 mmHg - NM end-diastolic Vmax 1.02 m/sec - PV acceleration time 125.59 msec - Kumar/IV: Voiding Method Urinal IV Catheter Type [Right Peripheral IV Antecubital] Active Medications - Current Medications Current Medications: Generic Name Dose Route Start Last Admin Trade Name Freq PRN Reason Stop Dose Admin Acetaminophen 650 mg 04/05/20 14:29 Acetaminophen 325 Mg Tab PO Q4H PRN Pain MILD(1-3)/Fever >100.5/HENRY Aspirin 81 mg 04/06/20 10:00 04/09/20 09:13 Aspirin Ec 81 Mg Tab PO 81 mg QDAY TREY Administration Atorvastatin Calcium 40 mg 04/05/20 22:00 04/08/20 21:57 Atorvastatin 40 Mg Tab PO 40 mg QHS TREY Administration Carvedilol 6.25 mg 04/06/20 10:00 04/09/20 09:13 Carvedilol 6.25 Mg Tab PO 6.25 mg BID TREY Administration Clopidogrel Bisulfate 75 mg 04/06/20 10:00 04/09/20 09:12 Clopidogrel 75 Mg Tab PO 75 mg QDAY TREY Administration Dextrose 50 ml 04/05/20 14:29 Dextrose 50% In Water (25gm) 50 Ml Syringe IV Q30MIN PRN Hypoglycemia Protocol Doxazosin Mesylate 2 mg 04/05/20 22:00 04/08/20 21:57 Doxazosin 1 Mg Tab PO 2 mg QHS TREY Administration Furosemide 40 mg 04/05/20 18:00 04/09/20 05:24 Furosemide 40 Mg/4 Ml Inj IV 40 mg BID@0600,1800 TREY Administration Heparin Sodium (Porcine) 5,000 unit 04/05/20 22:00 04/09/20 13:17 Heparin 5,000 Unit/1 Ml Vial SUB-Q 5,000 unit Q8HR TREY Administration Hydralazine HCl 20 mg 04/07/20 12:43 Hydralazine 20 Mg/1 Ml Inj IV Q2HR PRN Give if SBP>180 DBP>100 Insulin Human Regular 0 units 04/05/20 16:30 04/09/20 12:00 Insulin Regular, Human 100 Units/1 Ml SUB-Q Not Given ACHS [facility] Protocol Isosorbide Dinitrate/Hydralazine 1 each 04/05/20 22:00 04/09/20 13:16 Isosorb Dinit/Hydralazine 20-37.5mg Tab PO 1 each Q8HR TREY Administration Magnesium Hydroxide 30 ml 04/05/20 14:29 04/07/20 09:29 Magnesium Hydroxide (Mom) Oral Liqd Udc PO 30 ml Q4H PRN Administration Constipation Miscellaneous Medication 10 ml 04/05/20 22:00 Dorzolamide Hcl/Timolol Maleat [Cosopt Eye Drops] OP Q12HR TREY Multivitamins/Minerals 1 each 04/06/20 10:00 04/09/20 09:12 Multivitamins,Ther W-Minerals Tab PO 1 each QDAY TREY Administration Ondansetron HCl 4 mg 04/05/20 14:29 Ondansetron 4 Mg/2 Ml Inj IV Q8H PRN Nausea And Vomiting Pantoprazole Sodium 40 mg 04/06/20 20:00 04/09/20 09:13 Pantoprazole 40 Mg Tab PO 40 mg QDAC TREY Administration Sodium Chloride 10 ml 04/05/20 22:00 04/09/20 09:13 Sodium Chloride 0.9% 10 Ml Flush Syringe IV 10 ml BID TREY Administration Sodium Chloride 10 ml 04/05/20 14:29 04/06/20 06:12 Sodium Chloride 0.9% 10 Ml Flush Syringe IV 10 ml PRN PRN Administration LINE FLUSH Spironolactone 25 mg 04/06/20 10:00 04/09/20 09:13 Spironolactone 25 Mg Tab PO 25 mg QDAY TREY Administration Nutrition/Malnutrition Assess - Dietary Evaluation Nutrition/Malnutrition Findings: Nutrition Notes Start: 04/06/20 11:39 Freq: Status: Active Protocol: Document 04/06/20 11:39 MARI (Rec: 04/06/20 11:40 MARI [id number]) Co-Sign 04/06/20 11:39 LP Nutrition Notes Need for Assessment generated from: MD Order Initial or Follow up Brief Note Current Diagnosis Coronary Artery Disease, Hypertension,Heart Failure Other Pertinent Diagnosis Anemia, PMH: colon CA Current Diet Cardiac with Consistent CHO Subjective/Other Information MD consult for diet education. Pt denied education at this time. Nutrition Intervention Revisit per MD consult or patient Sign Off request:
[2020-04-09] MEDS: DOXAZOSIN 1 MG TAB PO SCH (21:20)
[2020-04-10] MEDS: HEPARIN 5,000 UNIT/1 ML VIAL SUB-Q SCH ×3 (05:45→21:33)
[2020-04-10] MEDS: ISOSORB DINIT/HYDRALAZINE 20-37.5MG TAB PO SCH ×3 (05:45→21:33)
[2020-04-10] MEDS: FUROSEMIDE 40 MG/4 ML INJ IV SCH (05:45)
[2020-04-10] MEDS ORDERED: REGADENOSON 0.4 MG/5 ML INJ IV ONE (07:39)
--- NOTE | 2020-04-10 09:58 | Progress Note ---
Assessment and Plan Assessment and plan: 69-year-old male with known history of congestive heart failure, hypertension, aortic valve stenosis, cardiomyopathy, cardiac heart stents and anemia sent to the emergency room today from medical education specialist office for evaluation of shortness of breath. Shortness of breath is said to have been ongoing for the past few days. He denies any chest pain, no nausea vomiting, no fever or chills, no headache or dizziness. Patient admits that he has not been quite compliant with his diuretic. Denies any swelling in his lower extremities. However he has had some orthopnea and has also had decreased exercise tolerance. Upon arrival in the emergency room patient was slightly hypoxic. Work-up in the emergency room today reveals elevated BNP, he was anemic with hemoglobin of 7. Mildly elevated troponin. Chest x-ray shows mild cardiomegaly. Patient is being admitted for CHF exacerbation, hypoxia and anemia. 04/10: Hold lasix, creatinine is worse. OR Decrease to daily. Obtain nephrology consult. Patient for stress test today, and then obtain GI clearance prior to discharge. Discussed with GI will plan for colonoscopy tomorrow this will also give time to see if renal function improves some. Acute on chronic systolic heart failure exacerbation Cardiology consulted Echocardiogram from 10/27/2019 shows EF of 25 to 30% 04/09/2020 echocardiogram showing LVEF of 40 to 45%, mild concentric left ventri cular hypertrophy. Diuresis, furosemide 40 mg IV twice daily Continue carvedilol Lexiscan to be done on 04/10/2020 History of CAD History of PCI on 10/27/2019 Continue Plavix and aspirin, atorvastatin History of left anterior fascicular block History of right bundle branch block Chronic, seen on repeat EKG Hypertension Spironolactone, isosorbide dinitrate/hydralazine, doxazosin, carvedilol Microcytic anemia This seems to be a chronic issue GI consulted, recommendations noted. Patient has a history of colon cancer with resection. Patient will need colonoscopy, GI to determine if this will be done inpatient or outpatient Acute kidney injury with vasomotor nephropathy Chronic kidney disease stage IIIb Continue diuresis Obese Lifestyle change CODE STATUS: Full DVT prophylaxis: Heparin Disposition: Ashlyn scan tomorrow morning, then colonoscopy if no cardiac abnormalities seen on Lexiscan History Interval history: Patient seen and examined. Underwent stress test today which is negative. Plan for colonoscopy tomorrow and also give time for renal evaluation as creatinine worsened a little bit. Hospitalist Physical - Physical exam Narrative exam: General appearance: Present: no acute distress, well-nourished - EENT Eyes: Present: PERRL, EOM intact ENT: hearing intact, clear oral mucosa - Respiratory Respiratory effort: normal Respiratory: bilateral: CTA, negative: rales, rhonchi, wheezing - Cardiovascular Rhythm: regular Heart Sounds: Present: S1 & S2. Absent: rub, click - Extremities Extremities: no ischemia, No lower extremity bilateral edema, normal temperature, normal color, Full ROM - Abdominal General gastrointestinal: soft, non-tender, non-distended, normal bowel sounds - Integumentary Integumentary: Present: clear, warm, dry, normal turgor - Neurologic Neurologic: CNII-XII intact, no focal deficits, moves all extremities - Constitutional Vitals: Temp Pulse Resp BP Pulse Ox 98.4 F 82 18 133/60 92 04/10/20 04:45 04/10/20 05:45 04/10/20 04:45 04/10/20 05:45 04/10/20 04:45 General appearance: Present: no acute distress HEART Score - HEART Score EKG: Non-specific Age: > 65 Risk factors: > 3 risk factors or hx of atherosclerotic disease Troponin: Troponin T 0.050 ng/mL (0.00-0.029) H 04/06/20 00:31 Troponin: 1-3x normal limit - Critical Actions Critical Actions: 4-6 pts:12-16.6% risk of adverse cardiac event. Should be admitted Results - Labs CBC & Chem 7: 04/09/20 05:20 04/09/20 05:20 Labs: Laboratory Last Values WBC 12.8 K/mm3 (4.5-11.0) H 04/09/20 05:20 RBC 3.86 M/mm3 (3.65-5.03) 04/09/20 05:20 Hgb 8.2 gm/dl (11.8-15.2) L 04/09/20 05:20 Hct 27.4 % (35.5-45.6) L 04/09/20 05:20 MCV 71 fl (84-94) L 04/09/20 05:20 MCH 21 pg (28-32) L 04/09/20 05:20 MCHC 30 % (32-34) L 04/09/20 05:20 RDW 27.5 % (13.2-15.2) H 04/09/20 05:20 Plt Count 751 K/mm3 (140-440) H 04/09/20 05:20 Lymph % (Auto) 13.7 % (13.4-35.0) 04/05/20 11:34 [place] % (Auto) 10.6 % (0.0-7.3) H 04/05/20 11:34 Eos % (Auto) 9.6 % (0.0-4.3) H 04/05/20 11:34 Baso % (Auto) 1.3 % (0.0-1.8) 04/05/20 11:34 Lymph # (Auto) 1.4 K/mm3 (1.2-5.4) 04/05/20 11:34 [place] # (Auto) 1.1 K/mm3 (0.0-0.8) H 04/05/20 11:34 Eos # (Auto) 1.0 K/mm3 (0.0-0.4) H 04/05/20 11:34 Baso # (Auto) 0.1 K/mm3 (0.0-0.1) 04/05/20 11:34 Add Manual Diff Complete 04/06/20 05:21 Total Counted 100 04/06/20 05:21 Seg Neutrophils % 64.8 % (40.0-70.0) 04/05/20 11:34 Seg Neuts % (Manual) 68.0 % (40.0-70.0) 04/06/20 05:21 Lymphocytes % (Manual) 13.0 % (13.4-35.0) L 04/06/20 05:21 Monocytes % (Manual) 10.0 % (0.0-7.3) H 04/06/20 05:21 Eosinophils % (Manual) 9.0 % (0.0-4.3) H 04/06/20 05:21 Nucleated RBC % Not Reportable 04/06/20 05:21 Seg Neutrophils # 6.5 K/mm3 (1.8-7.7) 04/05/20 11:34 Seg Neutrophils # Man 9.5 K/mm3 (1.8-7.7) H 04/06/20 05:21 Band Neutrophils # 0.0 K/mm3 04/06/20 05:21 Lymphocytes # (Manual) 1.8 K/mm3 (1.2-5.4) 04/06/20 05:21 Abs React Lymphs (Man) 0.0 K/mm3 04/06/20 05:21 Monocytes # (Manual) 1.4 K/mm3 (0.0-0.8) H 04/06/20 05:21 Eosinophils # (Manual) 1.3 K/mm3 (0.0-0.4) H 04/06/20 05:21 Basophils # (Manual) 0.0 K/mm3 (0.0-0.1) 04/06/20 05:21 Metamyelocytes # 0.0 K/mm3 04/06/20 05:21 Myelocytes # 0.0 K/mm3 04/06/20 05:21 Promyelocytes # 0.0 K/mm3 04/06/20 05:21 Blast Cells # 0.0 K/mm3 04/06/20 05:21 WBC Morphology Not Reportable 04/06/20 05:21 Hypersegmented Neuts Not Reportable 04/06/20 05:21 Hyposegmented Neuts Not Reportable 04/06/20 05:21 Hypogranular Neuts Not Reportable 04/06/20 05:21 Smudge Cells Not Reportable 04/06/20 05:21 Toxic Granulation Not Reportable 04/06/20 05:21 Toxic Vacuolation Not Reportable 04/06/20 05:21 Dohle Bodies Not Reportable 04/06/20 05:21 Pelger-Huet Anomaly Not Reportable 04/06/20 05:21 Diamond Rods Not Reportable 04/06/20 05:21 Platelet Estimate Consistent w auto 04/06/20 05:21 Clumped Platelets Not Reportable 04/06/20 05:21 Plt Clumps, EDTA Not Reportable 04/06/20 05:21 Large Platelets Not Reportable 04/06/20 05:21 Giant Platelets Not Reportable 04/06/20 05:21 Platelet Satelliting Not Reportable 04/06/20 05:21 Plt Morphology Comment Not Reportable 04/06/20 05:21 RBC Morphology Not Reportable 04/06/20 05:21 Dimorphic RBCs Not Reportable 04/06/20 05:21 Polychromasia Not Reportable 04/06/20 05:21 Hypochromasia 2+ 04/06/20 05:21 Poikilocytosis Not Reportable 04/06/20 05:21 Anisocytosis 3+ 04/06/20 05:21 Microcytosis Not Reportable 04/06/20 05:21 Macrocytosis Not Reportable 04/06/20 05:21 Spherocytes Not Reportable 04/06/20 05:21 Pappenheimer Bodies Not Reportable 04/06/20 05:21 Sickle Cells Not Reportable 04/06/20 05:21 Target Cells Not Reportable 04/06/20 05:21 Tear Drop Cells Not Reportable 04/06/20 05:21 Ovalocytes Not Reportable 04/06/20 05:21 Helmet Cells Not Reportable 04/06/20 05:21 [place] Bodies Not Reportable 04/06/20 05:21 [place] Rings Not Reportable 04/06/20 05:21 [place] Cells Not Reportable 04/06/20 05:21 Bite Cells Not Reportable 04/06/20 05:21 Crenated Cell Not Reportable 04/06/20 05:21 Elliptocytes Few 04/06/20 05:21 Acanthocytes (Spur) Not Reportable 04/06/20 05:21 Rouleaux Not Reportable 04/06/20 05:21 Hemoglobin C Crystals Not Reportable 04/06/20 05:21 Schistocytes Not Reportable 04/06/20 05:21 Malaria parasites Not Reportable 04/06/20 05:21 Amadeo Bodies Not Reportable 04/06/20 05:21 Hem Pathologist Commnt No 04/06/20 05:21 PT 16.0 Sec. (12.2-14.9) H 04/06/20 05:21 INR 1.28 (0.87-1.13) H 04/06/20 05:21 APTT 34.0 Sec. (24.2-36.6) 04/05/20 11:34 Sodium 138 mmol/L (137-145) 04/09/20 05:20 Potassium 4.3 mmol/L (3.6-5.0) 04/09/20 05:20 Chloride 104.1 mmol/L (98-107) 04/09/20 05:20 Carbon Dioxide 25 mmol/L (22-30) 04/09/20 05:20 Anion Gap 13 mmol/L 04/09/20 05:20 BUN 31 mg/dL (9-20) H 04/09/20 05:20 Creatinine 2.2 mg/dL (0.8-1.3) H 04/09/20 05:20 Estimated GFR 36 ml/min 04/09/20 05:20 BUN/Creatinine Ratio 14 % 04/09/20 05:20 Glucose 112 mg/dL (75-100) H 04/09/20 05:20 POC Glucose 125 mg/dL (70-105) H 04/09/20 16:02 Calcium 10.0 mg/dL (8.4-10.2) 04/09/20 05:20 Magnesium 1.80 mg/dL (1.7-2.3) 04/06/20 00:31 Iron 16 ug/dL (49-181) L 04/06/20 18:20 TIBC 368 mcg/dL (250-450) 04/06/20 18:20 Ferritin 14.0 ng/mL (30.0-300.0) L 04/06/20 18:20 Total Bilirubin 0.50 mg/dL (0.1-1.2) 04/05/20 11:34 AST 20 units/L (5-40) 04/05/20 11:34 ALT 14 units/L (7-56) 04/05/20 11:34 Alkaline Phosphatase 71 units/L (35-129) 04/05/20 11:34 Total Creatine Kinase 232 units/L (55-170) H 04/05/20 11:40 CK-MB (CK-2) 7.9 ng/mL (0.0-4.0) H 04/05/20 11:34 CK-MB (CK-2) Rel Index 3.4 (0-4) 04/05/20 11:34 Troponin T 0.050 ng/mL (0.00-0.029) H 04/06/20 00:31 NT-Pro-B Natriuret Pep 1809 pg/mL (0-900) H 04/05/20 11:34 Total Protein 7.3 g/dL (6.3-8.2) 04/05/20 11:34 Albumin 4.1 g/dL (3.9-5) 04/05/20 11:34 Albumin/Globulin Ratio 1.3 % 04/05/20 11:34 Triglycerides 95 mg/dL (2-149) 04/05/20 11:34 Cholesterol 161 mg/dL (50-199) 04/05/20 11:34 LDL Cholesterol Direct 111 mg/dL (50-130) 04/05/20 11:34 HDL Cholesterol 44 mg/dL (40-59) 04/05/20 11:34 Cholesterol/HDL Ratio 3.65 % 04/05/20 11:34 Urine Color Colorless (Yellow) 04/05/20 18:00 Urine Turbidity Clear (Clear) 04/05/20 18:00 Urine pH 6.0 (5.0-7.0) 04/05/20 18:00 Ur Specific [place] 1.005 (1.003-1.030) 04/05/20 18:00 Urine Protein 30 mg/dl mg/dL (Negative) 04/05/20 18:00 Urine Glucose (UA) Neg mg/dL (Negative) 04/05/20 18:00 Urine Ketones Neg mg/dL (Negative) 04/05/20 18:00 Urine Blood Sm (Negative) 04/05/20 18:00 Urine Nitrite Neg (Negative) 04/05/20 18:00 Ur Reducing Substances Not Reportable 04/05/20 18:00 Urine Bilirubin Neg (Negative) 04/05/20 18:00 Urine Ictotest Not Reportable 04/05/20 18:00 Urine Urobilinogen < 2.0 mg/dL (<2.0) 04/05/20 18:00 Ur Leukocyte Esterase Neg (Negative) 04/05/20 18:00 Urine WBC (Auto) < 1.0 /HPF (0.0-6.0) 04/05/20 18:00 Urine RBC (Auto) < 1.0 /HPF (0.0-6.0) 04/05/20 18:00 Nasal Screen MRSA (PCR) Negative (Negative) 04/06/20 06:00 Blood Type A POSITIVE 04/05/20 13:55 Antibody Screen Negative 04/05/20 13:55 Crossmatch See Detail 04/05/20 13:55 - Diagnostic Impressions Diagnostic Impressions: Echocardiogram 04/09/20 10:05 Transthoracic Echocardiogram Indication: SOB BP: 134/78 HR: 75 Conclusions *The left ventricular chamber size is mildly dilated. *Mild concentric left ventricular hypertrophy is observed. *Global left ventricular systolic function is mildly decreased. *The estimated ejection fraction is 40-45%. *The left atrium is mildly dilated. *There is moderate mitral regurgitation. *There is mild tricuspid regurgitation. *There is evidence of mild pulmonary hypertension. *The right ventricular systolic pressure is calculated at 31 mmHg. Findings Left Ventricle: The left ventricular chamber size is mildly dilated. Mild concentric left ventricular hypertrophy is observed. Global left ventricular systolic function is mildly decreased. The estimated ejection fraction is 40-45%. Left Atrium: The left atrium is mildly dilated. Right Ventricle: The right ventricular cavity size is normal. The right ventricular global systolic function is normal. Right Atrium: The right atrial cavity size is normal. Aortic Valve: The aortic valve is trileaflet. There is no evidence of aortic regurgitation. There is no evidence of aortic stenosis. Mitral Valve: The mitral valve leaflets appear normal. There is moderate mitral regurgitation. There is no evidence of mitral stenosis. Tricuspid Valve: There is mild tricuspid regurgitation. The right ventricular systolic pressure is calculated at 31 mmHg. There is evidence of mild pulmonary hypertension. Pericardium: There is no pericardial effusion. Aorta: There is no dilatation of the ascending aorta. There is no dilatation of the aortic root. Venous: The inferior vena cava appears normal in size. Measurements Chambers 2D Name Value Normal Range IVSd (2D) 1.07 cm (0.6 - 1.1) LVPWd (2D) 1 cm (0.6 - 1.1) LVIDd (2D) 5.84 cm (3.7 - 5.6) LVIDs (2D) 4.78 cm (2 - 3.8) LV FS (2D) 18.17 % - EF Teichholz (2D) 37.11 % - Ao root diameter (2D) 2.82 cm (2 - 3.7) Volumes/Mass Name Value Normal Range LA ESV SP 4CH (A/L) 30.39 ml - LA ESV SP 2CH (A/L) 46.67 ml - LA ESV BP (A/L) 37.73 ml - LA ESV BP (A/L) index 19.55 ml/m2 - LA ESV SP 4CH (MOD) 27.8 ml - LA ESV SP 2CH (MOD) 46.07 ml - LA ESV BP (MOD) 35.73 ml - LA ESV BP (MOD) index 18.51 ml/m2 - Diastolic/Systolic Function Name Value Normal Range MV E-wave Vmax 0.87 m/sec - MV deceleration time 258.82 msec - MV A-wave Vmax 1.06 m/sec - MV E:A ratio 0.82 ratio - Aortic Valve Name Value Normal Range AV Vmax 1.8 m/sec - AV VTI 28.98 cm - AV peak gradient 13.02 mmHg - AV mean gradient 5.87 mmHg - LVOT diameter 2.07 cm - LVOT Vmax 0.9 m/sec - LVOT VTI 16.24 cm - LVOT peak gradient 3.26 mmHg - LVOT mean gradient 1.87 mmHg - SV LVOT 54.62 ml - RAMY (continuity Vmax) 1.68 cm2 - RAMY (continuity VTI) 1.89 cm2 - Mitral Valve Name Value Normal Range MR Vmax 5.65 m/sec - Tricuspid Valve Name Value Normal Range TR Vmax 2.57 m/sec - TR peak gradient 26 mmHg - RAP 3 mmHg - RVSP 31 mmHg - Pulmonic Valve/Qp:Qs Name Value Normal Range PV Vmax 1.02 m/sec - PV peak gradient 4.17 mmHg - OH end-diastolic Vmax 1.02 m/sec - PV acceleration time 125.59 msec - Kumar/IV: Voiding Method Toilet IV Catheter Type [Right Peripheral IV Antecubital] Active Medications - Current Medications Current Medications: Generic Name Dose Route Start Last Admin Trade Name Freq PRN Reason Stop Dose Admin Acetaminophen 650 mg 04/05/20 14:29 Acetaminophen 325 Mg Tab PO Q4H PRN Pain MILD(1-3)/Fever >100.5/HENRY Aspirin 81 mg 04/06/20 10:00 04/09/20 09:13 Aspirin Ec 81 Mg Tab PO 81 mg QDAY TREY Administration Atorvastatin Calcium 40 mg 04/05/20 22:00 04/09/20 21:21 Atorvastatin 40 Mg Tab PO 40 mg QHS TREY Administration Carvedilol 6.25 mg 04/06/20 10:00 04/09/20 21:20 Carvedilol 6.25 Mg Tab PO 6.25 mg BID TREY Administration Clopidogrel Bisulfate 75 mg 04/06/20 10:00 04/09/20 09:12 Clopidogrel 75 Mg Tab PO 75 mg QDAY TREY Administration Dextrose 50 ml 04/05/20 14:29 Dextrose 50% In Water (25gm) 50 Ml Syringe IV Q30MIN PRN Hypoglycemia Protocol Doxazosin Mesylate 2 mg 04/05/20 22:00 04/09/20 21:20 Doxazosin 1 Mg Tab PO 2 mg QHS TREY Administration Heparin Sodium (Porcine) 5,000 unit 04/05/20 22:00 04/10/20 05:45 Heparin 5,000 Unit/1 Ml Vial SUB-Q 5,000 unit Q8HR TREY Administration Hydralazine HCl 20 mg 04/07/20 12:43 Hydralazine 20 Mg/1 Ml Inj IV Q2HR PRN Give if SBP>180 DBP>100 Insulin Human Regular 0 units 04/05/20 16:30 04/09/20 21:46 Insulin Regular, Human 100 Units/1 Ml SUB-Q Not Given ACHS [facility] Protocol Isosorbide Dinitrate/Hydralazine 1 each 04/05/20 22:00 04/10/20 05:45 Isosorb Dinit/Hydralazine 20-37.5mg Tab PO 1 each Q8HR TREY Administration Magnesium Hydroxide 30 ml 04/05/20 14:29 04/07/20 09:29 Magnesium Hydroxide (Mom) Oral Liqd Udc PO 30 ml Q4H PRN Administration Constipation Miscellaneous Medication 10 ml 04/05/20 22:00 Dorzolamide Hcl/Timolol Maleat [Cosopt Eye Drops] OP Q12HR TREY Multivitamins/Minerals 1 each 04/06/20 10:00 04/09/20 09:12 Multivitamins,Ther W-Minerals Tab PO 1 each QDAY TREY Administration Ondansetron HCl 4 mg 04/05/20 14:29 Ondansetron 4 Mg/2 Ml Inj IV Q8H PRN Nausea And Vomiting Pantoprazole Sodium 40 mg 04/06/20 20:00 04/09/20 09:13 Pantoprazole 40 Mg Tab PO 40 mg QDAC TREY Administration Sodium Chloride 10 ml 04/05/20 22:00 04/09/20 21:21 Sodium Chloride 0.9% 10 Ml Flush Syringe IV 10 ml BID TREY Administration Sodium Chloride 10 ml 04/05/20 14:29 04/06/20 06:12 Sodium Chloride 0.9% 10 Ml Flush Syringe IV 10 ml PRN PRN Administration LINE FLUSH Spironolactone 25 mg 04/06/20 10:00 04/09/20 09:13 Spironolactone 25 Mg Tab PO 25 mg QDAY TREY Administration Nutrition/Malnutrition Assess - Dietary Evaluation Nutrition/Malnutrition Findings: Nutrition Notes Start: 04/06/20 11:39 Freq: Status: Active Protocol: Document 04/06/20 11:39 MARI (Rec: 04/06/20 11:40 MARI [id number]) Co-Sign 04/06/20 11:39 LP Nutrition Notes Need for Assessment generated from: MD Order Initial or Follow up Brief Note Current Diagnosis Coronary Artery Disease, Hypertension,Heart Failure Other Pertinent Diagnosis Anemia, PMH: colon CA Current Diet Cardiac with Consistent CHO Subjective/Other Information MD consult for diet education. Pt denied education at this time. Nutrition Intervention Revisit per MD consult or patient Sign Off request:
--- NOTE | 2020-04-10 11:30 | Consultation ---
History of Present Illness - Reason for Consult Consult date: 04/10/20 acute renal failure, chronic renal failure Requesting physician: VENECIA ARCINIEGA - History of Present Illness This is a 69 yo M with past medical history of Hypertension, aortic valve stenosis, CAD, ischemic cardiomyopathy, HFrEF, CKD stage 3 with baseline Cr around 1.5-1.8 in the past, who initially presented to [facility] on 04/05/20 after sent from cardiology office with complaints of shortness of breath > 1 week. Pt was not consistently taking his diuretic meds. In ER patient was found to have significant anemia with Hb as low as 7 and was admitted for blood transfusion and further GI work up. Chest x-ray shows mild cardiomegaly otherwise no acute pulmonary edema. Labs showed elevated proBNP > 1800, initial BUN/Cr was at 19/1.7mg/dl close to his baseline renal function. Pt was initiated on lasix 40mg IV bid for volume control. Over the last few days BUN/Cr has been rising up with peak BUN/Cr at 31/2.2mg/dl for which renal consult is requested. Past History Past Medical History: CAD, diabetes, heart failure, hypertension, other (History of colon cancer, anemia) Past Surgical History: PTCA, Other (Colon surgery) Social history: no significant social history Family history: no significant family history Medications and Allergies Allergies Allergy/AdvReac Type Severity Reaction Status Date / Time No Known Allergies Allergy Verified 04/05/20 10:58 Home Medications Medication Instructions Recorded Confirmed Last Taken Type Iron Fum,Ps/Folic/Bcomp,C No.9 1 each PO DAILY 04/25/16 04/07/20 04/07/20 11:21 History [Integra Plus Capsule] Omeprazole 40 mg PO DAILY 04/25/16 04/07/20 04/07/20 11:22 History Sildenafil Citrate [Viagra] 100 mg PO QDAY PRN 04/25/16 04/07/20 Unknown History Sitagliptin Phosphate [Januvia] 50 mg PO DAILY 04/25/16 04/07/20 04/25/16 History hydrALAZINE [Apresoline TAB] 25 mg PO Q12HR 04/25/16 04/07/20 04/07/20 11:20 History Aspirin 81 mg PO QDAY #30 tablet 04/26/16 04/07/20 04/07/20 11:23 Rx predniSONE [Deltasone] 60 mg PO QDAY 5 Days tablet 04/26/16 04/07/20 Unknown Rx valACYclovir [Valtrex] 1,000 mg PO TID 5 Days tablet 04/26/16 04/07/20 Unknown Rx bisacodyL [Dulcolax suppos] 10 mg [place] DAILY PRN #6 supp.rect 12/25/18 04/07/20 Unknown Rx Aspirin EC [Halfprin EC] 81 mg PO QDAY #30 tablet 10/22/19 04/07/20 04/07/20 11:21 Rx AtorvaSTATin [Lipitor] 40 mg PO QHS #30 tablet 10/22/19 04/07/20 04/07/20 11:21 Rx Clopidogrel [Plavix] 75 mg PO QDAY #30 tablet 10/22/19 04/07/20 04/07/20 11:21 Rx Dorzolamide HCl/Timolol Maleat 10 ml OP Q12HR 30 Days drops 10/22/19 04/07/20 Unknown Rx [Cosopt Eye Drops] Doxazosin [Cardura] 2 mg PO QHS #30 tablet 10/22/19 04/07/20 Unknown Rx Isosorb Dinit/Hydralazine [Bidil 1 each PO Q8HR #30 tablet 10/22/19 04/07/20 04/07/20 11:20 Rx 20/37.5MG] Metoprolol [Lopressor TAB] 50 mg PO BID #60 tablet 10/22/19 04/07/20 04/07/20 11:22 Rx NIFEdipine XL [Procardia Xl] 60 mg PO QDAY #30 tablet 10/22/19 04/07/20 04/07/20 11:22 Rx cephALEXin [Keflex] 500 mg PO Q12HR #10 cap 10/22/19 04/07/20 Unknown Rx Active Meds: Active Medications Acetaminophen (Acetaminophen 325 Mg Tab) 650 mg PO Q4H PRN PRN Reason: Pain MILD(1-3)/Fever >100.5/HENRY Aspirin (Aspirin Ec 81 Mg Tab) 81 mg PO QDAY [facility] Last Admin: 04/09/20 09:13 Dose: 81 mg Documented by: Atorvastatin Calcium (Atorvastatin 40 Mg Tab) 40 mg PO QHS [facility] Last Admin: 04/09/20 21:21 Dose: 40 mg Documented by: Carvedilol (Carvedilol 6.25 Mg Tab) 6.25 mg PO BID [facility] Last Admin: 04/09/20 21:20 Dose: 6.25 mg Documented by: Clopidogrel Bisulfate (Clopidogrel 75 Mg Tab) 75 mg PO QDAY [facility] Last Admin: 04/09/20 09:12 Dose: 75 mg Documented by: Dextrose (Dextrose 50% In Water (25gm) 50 Ml Syringe) 50 ml IV Q30MIN PRN; Protocol PRN Reason: Hypoglycemia Doxazosin Mesylate (Doxazosin 1 Mg Tab) 2 mg PO QHS [facility] Last Admin: 04/09/20 21:20 Dose: 2 mg Documented by: Furosemide (Furosemide 20 Mg Tab) 20 mg PO QDAY [facility] Heparin Sodium (Porcine) (Heparin 5,000 Unit/1 Ml Vial) 5,000 unit SUB-Q Q8HR [facility] Last Admin: 04/10/20 05:45 Dose: 5,000 unit Documented by: Hydralazine HCl (Hydralazine 20 Mg/1 Ml Inj) 20 mg IV Q2HR PRN PRN Reason: Give if SBP>180 DBP>100 Insulin Human Regular (Insulin Regular, Human 100 Units/1 Ml) 0 units SUB-Q [facility]; Protocol Last Admin: 04/09/20 21:46 Dose: Not Given Documented by: Isosorbide Dinitrate/Hydralazine (Isosorb Dinit/Hydralazine 20-37.5mg Tab) 1 each PO Q8HR [facility] Last Admin: 04/10/20 05:45 Dose: 1 each Documented by: Magnesium Hydroxide (Magnesium Hydroxide (Mom) Oral Liqd Udc) 30 ml PO Q4H PRN PRN Reason: Constipation Last Admin: 04/07/20 09:29 Dose: 30 ml Documented by: Miscellaneous Medication (Dorzolamide Hcl/Timolol Maleat [Cosopt Eye Drops]) 10 ml OP Q12HR [facility] Multivitamins/Minerals (Multivitamins,Ther W-Minerals Tab) 1 each PO QDAY [facility] Last Admin: 04/09/20 09:12 Dose: 1 each Documented by: Ondansetron HCl (Ondansetron 4 Mg/2 Ml Inj) 4 mg IV Q8H PRN PRN Reason: Nausea And Vomiting Pantoprazole Sodium (Pantoprazole 40 Mg Tab) 40 mg PO QDAC [facility] Last Admin: 04/09/20 09:13 Dose: 40 mg Documented by: Sodium Chloride (Sodium Chloride 0.9% 10 Ml Flush Syringe) 10 ml IV BID [facility] Last Admin: 04/09/20 21:21 Dose: 10 ml Documented by: Sodium Chloride (Sodium Chloride 0.9% 10 Ml Flush Syringe) 10 ml IV PRN PRN PRN Reason: LINE FLUSH Last Admin: 04/06/20 06:12 Dose: 10 ml Documented by: Spironolactone (Spironolactone 25 Mg Tab) 25 mg PO QDAY [facility] Last Admin: 04/09/20 09:13 Dose: 25 mg Documented by: Review of Systems All systems: negative Constitutional: weakness, malaise Respiratory: shortness of breath, dyspnea on exertion Exam - Vital Signs Vital signs: Vital Signs Temp Pulse Resp BP Pulse Ox 98.7 F 91 H 22 154/94 98 04/05/20 11:01 04/05/20 11:01 04/05/20 11:01 04/05/20 11:01 04/05/20 11:01 - General Appearance General appearance: well-developed, well-nourished, appears stated age EENT: ATNC, PERRL, mucous membranes moist Neck: Present: neck supple Respiratory: Clear to Ascultation Heart: regular, S1S2 Gastrointestinal: Present: normoactive bowel sounds Integumentary: no rash Neurologic: no focal deficit, alert and oriented x3, strength 5/5, CN 3-12 intact Psychiatric: mood/affect appropriate, cooperative Results - Lab Results 04/09/20 05:20 04/09/20 05:20 Most recent lab results Calcium 10.0 mg/dL (8.4-10.2) 04/09/20 05:20 Magnesium 1.80 mg/dL (1.7-2.3) 04/06/20 00:31 Assessment and Plan - Patient Problems (1) Acute kidney injury Current Visit: Yes Status: Acute Plan to address problem: most likely secondary to pre-renal azotemia in the setting of IV diuresis, check UA, urine lytes, urine P/C ratio. Renal US showed multiple b/l cysts, otherwise no hydronephrosis seen. Diuretics adjusted to lasix 20mg po qd. cont supportive care for MICHAEL avoid further nephrotoxins, NSAIDs, IV contrast. Will monitor lytes closely and make further recommendations (2) Anemia in chronic illness Current Visit: Yes Status: Acute Plan to address problem: s/p 1 PRBC transfusion, Hb stable > 8.follow GI recommendations (3) CHF (congestive heart failure) Current Visit: Yes Status: Acute Qualifiers: Plan to address problem: reinforced Na and 1.5L/day fluid restriction. cont BB, bidil and diuresis with po lasix. MIKE-I on hold d/t worsening renal function. (4) Hypertensive chronic kidney disease with stage 1 through stage 4 chronic kidney disease, or unspecified chronic kidney disease Current Visit: Yes Status: Acute Plan to address problem: monitor BP on current meds (5) Chronic kidney disease, stage 3a Current Visit: Yes Status: Acute Plan to address problem: 2/2 presumed hypertensive nephrosclerosis. cont supportive care, avoid nephrotoxins, NSAIDs, IV contrast. No acute indication for renal replacement therapy at present
[2020-04-10] MEDS: INSULIN REGULAR, HUMAN 100 UNITS/1 ML SUB-Q SCH ×4 (11:32→21:33)
[2020-04-10] MEDS: CLOPIDOGREL 75 MG TAB PO SCH (11:33)
[2020-04-10] MEDS: PANTOPRAZOLE 40 MG TAB PO SCH (11:33)
[2020-04-10] MEDS: ASPIRIN EC 81 MG TAB PO SCH (11:33)
[2020-04-10] MEDS: carvediloL 6.25 MG TAB PO SCH ×2 (11:33→21:33)
[2020-04-10] MEDS: MULTIVITAMINS,THER W-MINERALS TAB PO SCH (11:33)
[2020-04-10] MEDS: SPIRONOLACTONE 25 MG TAB PO SCH (11:33)
--- NOTE | 2020-04-10 11:57 | Treadmill Report ---
THALLIUM STRESS TEST LEFT VENTRICLE: Left ventricle is moderately dilated. There is severe left ventricular systolic dysfunction with ejection fraction 29%. A small fixed basal inferior defect of moderate intensity is likely due to diaphragmatic attenuation artifact. There is no reversible ischemia demonstrated. CONCLUSION: Evidence of a dilated cardiomyopathy, severe left ventricular systolic dysfunction, ejection fraction 29%. No significant reversible defects were demonstrated. Clinical correlation is recommended. [facility]# [id number] [place]/NTS
--- NOTE | 2020-04-10 13:37 | Progress Note ---
Assessment and Plan - Patient Problems (1) Coronary artery disease Current Visit: Yes Status: Acute Plan to address problem: Patient has coronary artery disease, status post coronary stent placement in mid 2020, remains on dual antiplatelet therapy. He is on medical therapy for coronary artery disease including dual oral antiplatelet therapy, and has an underlying, residual ischemic cardiomyopathy. Lexiscan thallium stress test shows no significant ischemia, stable for cardiac discharge on medical therapy for coronary artery disease and ischemic cardiomyopathy. Subjective Date of service: 04/10/20 Principal diagnosis: Symptomatic Anemia Interval history: Patient underwent a Lexiscan thallium stress test, no reversible ischemia, evidence of a dilated cardiomyopathy with ejection fraction calculated at 29%. Objective Vital Signs Temp Pulse Pulse Pulse Resp BP Pulse Ox 04/10/20 05:45 82 133/60 04/10/20 04:45 98.4 F 82 18 133/60 92 04/09/20 23:47 98.4 F 82 17 122/46 93 04/09/20 22:00 80 83 83 18 93 04/09/20 21:20 83 136/64 04/09/20 21:19 83 136/64 04/09/20 19:39 98.3 F 83 18 136/64 93 04/09/20 17:02 98.6 F 82 21 135/55 95 04/09/20 17:00 76 - Physical Examination General: Appears Well, No Apparent Distress HEENT: Positive: PERRL Neck: Positive: trachea midline Cardiac: Positive: Reg Rate and Rhythm Lungs: Positive: Decreased Breath Sounds Neuro: Positive: Grossly Intact Abdomen: Positive: Soft. Negative: Tender Skin: Positive: Clear Extremities: Absent: edema (trace)
--- NOTE | 2020-04-10 15:25 | Gastroenterology Progress Note ---
Assessment and Plan - Patient Problems (1) Symptomatic anemia Current Visit: Yes Status: Acute Plan to address problem: - No gross bleeding, despite use of ASA/plavix (and hct stable). - Will continue daily protonix/MVI. - Continue diuresis, and cardiac meds. - EGD/colon 2015 small otherwise negative, colon 2013 colon cancer (resected). - Will get EGD/colon tomorrow since Cardiology results encouraging. Subjective Date of service: 04/10/20 Principal diagnosis: Symptomatic Anemia Interval history: The patient had an uneventful stress test today. He has no N/V/abdominal pain, and no blood in his stools. Objective - Constitutional Vitals: Temp Pulse Resp BP Pulse Ox 98.4 F 82 18 133/60 92 04/10/20 04:45 04/10/20 05:45 04/10/20 04:45 04/10/20 05:45 04/10/20 04:45 General appearance: no acute distress - Respiratory Respiratory effort: normal Respiratory: bilateral: CTA - Cardiovascular Rhythm: regular Heart Sounds: Present: S1 & S2 - Gastrointestinal General gastrointestinal: Present: soft, non-tender, non-distended - Neurologic Neurological: alert and oriented x3 - Labs CBC & Chem 7: 04/09/20 05:20 04/09/20 05:20 Labs: Laboratory Results - last 24 hr 04/09/20 04/09/20 04/10/20 16:02 21:36 11:32 POC Glucose 125 H 134 H 163 H
[2020-04-10] MEDS ORDERED: POLYETHYLENE GLYCOL/ELECT SOLN 4000 ML PO SCH (17:00)
--- NOTE | 2020-04-10 17:41 | Ultrasound Report ---
ULTRASOUND RENAL INDICATION: MICHAEL. MICHAEL COMPARISON: No relevant prior imaging study available. FINDINGS: RIGHT KIDNEY: Size: 11.0 cm. Echogenicity: Increased Cortical thickness: 2.7 cm. Hydronephrosis: None. Cyst or mass: Multiple cyst largest measuring 2.9 cm Stones: None. LEFT KIDNEY: Size: 12.3 cm. Echogenicity: Increased Cortical thickness: 1.7 cm Hydronephrosis: None. Cyst or mass: Multiple cysts present largest measuring 5.2 cm Stones: None. Urinary Bladder: No significant abnormality. Free Fluid: None. Additional Findings: None. IMPRESSION 1. Bilateral renal cyst. Please see comments Signer Name: Florian Centeno MD Signed: 04/10/2020 5:37 PM Workstation Name: [id number]
[2020-04-10] MEDS ORDERED: LATANOPROST 0.005% OPHTH SOLN 2.5 ML OU SCH (18:00)
[2020-04-10] MEDS: DOXAZOSIN 1 MG TAB PO SCH (21:33)
[2020-04-11] MEDS: HEPARIN 5,000 UNIT/1 ML VIAL SUB-Q SCH ×2 (05:10→16:05)
[2020-04-11] MEDS: ISOSORB DINIT/HYDRALAZINE 20-37.5MG TAB PO SCH ×2 (05:10→16:03)
[2020-04-11 05:45] LABS: Hematocrit 27.9 % (35.5-45.6); Hemoglobin 8.5 gm/dl (11.8-15.2); Mean Corpuscular HGB Conc 30 % (32-34); Mean Corpuscular Volume 71 fl (84-94); Platelet Count 704 K/mm3 (140-440); Red Blood Count 3.96 M/mm3 (3.65-5.03)
[2020-04-11 05:55] LABS: Calcium 9.8 mg/dL (8.4-10.2); Red Cell Distribution Width 27.5 % (13.2-15.2)
[2020-04-11] MEDS: INSULIN REGULAR, HUMAN 100 UNITS/1 ML SUB-Q SCH ×3 (07:30→15:56)
[2020-04-11] MEDS ORDERED: FUROSEMIDE 20 MG TAB PO SCH (10:00)
--- NOTE | 2020-04-11 10:04 | Progress Note ---
Assessment and Plan Acute systolic heart failure Chronic anemia s/p transfusion of PRBCs Hx of ischemic cardiomyopathy EF 25-30% by echo 10/2019 Hx of CAD -PCI 10/2019 no ischemia by MPI this admission on plavix and aspirin Acute renal failure Hypertension Continue medical therapy for dilated cardiomyopathy and coronary artery disease. Conservative cardiac management. Subjective Date of service: 04/11/20 Principal diagnosis: Symptomatic Anemia Interval history: For GI endoscopy today. No cardiac events reported overnight. Objective Vital Signs Temp Pulse Resp BP Pulse Ox 04/11/20 05:10 74 119/57 04/11/20 04:11 98.5 F 74 17 119/57 95 04/11/20 00:02 98.4 F 75 19 126/64 94 04/11/20 00:00 69 04/10/20 20:22 98.6 F 82 18 130/60 96 04/10/20 17:35 74 16 146/75 99 - Physical Examination General: No Apparent Distress HEENT: Positive: PERRL Neck: Positive: neck supple Cardiac: Positive: Reg Rate and Rhythm Lungs: Positive: Decreased Breath Sounds Neuro: Positive: Grossly Intact Extremities: Absent: edema - Labs and Meds CBC 04/11/20 Range/Units 05:18 WBC 13.4 H (4.5-11.0) K/mm3 RBC 3.96 (3.65-5.03) M/mm3 Hgb 8.5 L (11.8-15.2) gm/dl Hct 27.9 L (35.5-45.6) % Plt Count 704 H (140-440) K/mm3 Comprehensive Metabolic Panel 04/11/20 Range/Units 05:18 Sodium 132 L (137-145) mmol/L Potassium 4.7 (3.6-5.0) mmol/L Chloride 100.6 (98-107) mmol/L Carbon Dioxide 26 (22-30) mmol/L BUN 39 H (9-20) mg/dL Creatinine 2.3 H (0.8-1.3) mg/dL Glucose 107 H (75-100) mg/dL Calcium 9.8 (8.4-10.2) mg/dL
--- NOTE | 2020-04-11 12:14 | Progress Note ---
Hospitalist Physical - Constitutional Vitals: Temp Pulse Resp BP Pulse Ox 98.5 F 74 17 119/57 95 04/11/20 04:11 04/11/20 05:10 04/11/20 04:11 04/11/20 05:10 04/11/20 04:11 General appearance: Present: no acute distress HEART Score - HEART Score EKG: Non-specific Age: > 65 Risk factors: > 3 risk factors or hx of atherosclerotic disease Troponin: Troponin T 0.050 ng/mL (0.00-0.029) H 04/06/20 00:31 Troponin: 1-3x normal limit - Critical Actions Critical Actions: 4-6 pts:12-16.6% risk of adverse cardiac event. Should be admitted Results - Labs CBC & Chem 7: 04/11/20 05:18 04/11/20 05:18 Labs: Laboratory Last Values WBC 13.4 K/mm3 (4.5-11.0) H 04/11/20 05:18 RBC 3.96 M/mm3 (3.65-5.03) 04/11/20 05:18 Hgb 8.5 gm/dl (11.8-15.2) L 04/11/20 05:18 Hct 27.9 % (35.5-45.6) L 04/11/20 05:18 MCV 71 fl (84-94) L 04/11/20 05:18 MCH 21 pg (28-32) L 04/11/20 05:18 MCHC 30 % (32-34) L 04/11/20 05:18 RDW 27.5 % (13.2-15.2) H 04/11/20 05:18 Plt Count 704 K/mm3 (140-440) H 04/11/20 05:18 Lymph % (Auto) 13.7 % (13.4-35.0) 04/05/20 11:34 [place] % (Auto) 10.6 % (0.0-7.3) H 04/05/20 11:34 Eos % (Auto) 9.6 % (0.0-4.3) H 04/05/20 11:34 Baso % (Auto) 1.3 % (0.0-1.8) 04/05/20 11:34 Lymph # (Auto) 1.4 K/mm3 (1.2-5.4) 04/05/20 11:34 [place] # (Auto) 1.1 K/mm3 (0.0-0.8) H 04/05/20 11:34 Eos # (Auto) 1.0 K/mm3 (0.0-0.4) H 04/05/20 11:34 Baso # (Auto) 0.1 K/mm3 (0.0-0.1) 04/05/20 11:34 Add Manual Diff Complete 04/06/20 05:21 Total Counted 100 04/06/20 05:21 Seg Neutrophils % 64.8 % (40.0-70.0) 04/05/20 11:34 Seg Neuts % (Manual) 68.0 % (40.0-70.0) 04/06/20 05:21 Lymphocytes % (Manual) 13.0 % (13.4-35.0) L 04/06/20 05:21 Monocytes % (Manual) 10.0 % (0.0-7.3) H 04/06/20 05:21 Eosinophils % (Manual) 9.0 % (0.0-4.3) H 04/06/20 05:21 Nucleated RBC % Not Reportable 04/06/20 05:21 Seg Neutrophils # 6.5 K/mm3 (1.8-7.7) 04/05/20 11:34 Seg Neutrophils # Man 9.5 K/mm3 (1.8-7.7) H 04/06/20 05:21 Band Neutrophils # 0.0 K/mm3 04/06/20 05:21 Lymphocytes # (Manual) 1.8 K/mm3 (1.2-5.4) 04/06/20 05:21 Abs React Lymphs (Man) 0.0 K/mm3 04/06/20 05:21 Monocytes # (Manual) 1.4 K/mm3 (0.0-0.8) H 04/06/20 05:21 Eosinophils # (Manual) 1.3 K/mm3 (0.0-0.4) H 04/06/20 05:21 Basophils # (Manual) 0.0 K/mm3 (0.0-0.1) 04/06/20 05:21 Metamyelocytes # 0.0 K/mm3 04/06/20 05:21 Myelocytes # 0.0 K/mm3 04/06/20 05:21 Promyelocytes # 0.0 K/mm3 04/06/20 05:21 Blast Cells # 0.0 K/mm3 04/06/20 05:21 WBC Morphology Not Reportable 04/06/20 05:21 Hypersegmented Neuts Not Reportable 04/06/20 05:21 Hyposegmented Neuts Not Reportable 04/06/20 05:21 Hypogranular Neuts Not Reportable 04/06/20 05:21 Smudge Cells Not Reportable 04/06/20 05:21 Toxic Granulation Not Reportable 04/06/20 05:21 Toxic Vacuolation Not Reportable 04/06/20 05:21 Dohle Bodies Not Reportable 04/06/20 05:21 Pelger-Huet Anomaly Not Reportable 04/06/20 05:21 Diamond Rods Not Reportable 04/06/20 05:21 Platelet Estimate Consistent w auto 04/06/20 05:21 Clumped Platelets Not Reportable 04/06/20 05:21 Plt Clumps, EDTA Not Reportable 04/06/20 05:21 Large Platelets Not Reportable 04/06/20 05:21 Giant Platelets Not Reportable 04/06/20 05:21 Platelet Satelliting Not Reportable 04/06/20 05:21 Plt Morphology Comment Not Reportable 04/06/20 05:21 RBC Morphology Not Reportable 04/06/20 05:21 Dimorphic RBCs Not Reportable 04/06/20 05:21 Polychromasia Not Reportable 04/06/20 05:21 Hypochromasia 2+ 04/06/20 05:21 Poikilocytosis Not Reportable 04/06/20 05:21 Anisocytosis 3+ 04/06/20 05:21 Microcytosis Not Reportable 04/06/20 05:21 Macrocytosis Not Reportable 04/06/20 05:21 Spherocytes Not Reportable 04/06/20 05:21 Pappenheimer Bodies Not Reportable 04/06/20 05:21 Sickle Cells Not Reportable 04/06/20 05:21 Target Cells Not Reportable 04/06/20 05:21 Tear Drop Cells Not Reportable 04/06/20 05:21 Ovalocytes Not Reportable 04/06/20 05:21 Helmet Cells Not Reportable 04/06/20 05:21 Devi-Iaeger Bodies Not Reportable 04/06/20 05:21 Milaca Rings Not Reportable 04/06/20 05:21 Lafferty Cells Not Reportable 04/06/20 05:21 Bite Cells Not Reportable 04/06/20 05:21 Crenated Cell Not Reportable 04/06/20 05:21 Elliptocytes Few 04/06/20 05:21 Acanthocytes (Spur) Not Reportable 04/06/20 05:21 Rouleaux Not Reportable 04/06/20 05:21 Hemoglobin C Crystals Not Reportable 04/06/20 05:21 Schistocytes Not Reportable 04/06/20 05:21 Malaria parasites Not Reportable 04/06/20 05:21 Amadeo Bodies Not Reportable 04/06/20 05:21 Hem Pathologist Commnt No 04/06/20 05:21 PT 16.0 Sec. (12.2-14.9) H 04/06/20 05:21 INR 1.28 (0.87-1.13) H 04/06/20 05:21 APTT 34.0 Sec. (24.2-36.6) 04/05/20 11:34 Sodium 132 mmol/L (137-145) L 04/11/20 05:18 Potassium 4.7 mmol/L (3.6-5.0) 04/11/20 05:18 Chloride 100.6 mmol/L (98-107) 04/11/20 05:18 Carbon Dioxide 26 mmol/L (22-30) 04/11/20 05:18 Anion Gap 10 mmol/L 04/11/20 05:18 BUN 39 mg/dL (9-20) H 04/11/20 05:18 Creatinine 2.3 mg/dL (0.8-1.3) H 04/11/20 05:18 Estimated GFR 34 ml/min 04/11/20 05:18 BUN/Creatinine Ratio 17 % 04/11/20 05:18 Glucose 107 mg/dL (75-100) H 04/11/20 05:18 POC Glucose 99 mg/dL (70-105) 04/11/20 11:59 Calcium 9.8 mg/dL (8.4-10.2) 04/11/20 05:18 Magnesium 1.80 mg/dL (1.7-2.3) 04/06/20 00:31 Iron 16 ug/dL (49-181) L 04/06/20 18:20 TIBC 368 mcg/dL (250-450) 04/06/20 18:20 Ferritin 14.0 ng/mL (30.0-300.0) L 04/06/20 18:20 Total Bilirubin 0.50 mg/dL (0.1-1.2) 04/05/20 11:34 AST 20 units/L (5-40) 04/05/20 11:34 ALT 14 units/L (7-56) 04/05/20 11:34 Alkaline Phosphatase 71 units/L (35-129) 04/05/20 11:34 Total Creatine Kinase 232 units/L (55-170) H 04/05/20 11:40 CK-MB (CK-2) 7.9 ng/mL (0.0-4.0) H 04/05/20 11:34 CK-MB (CK-2) Rel Index 3.4 (0-4) 04/05/20 11:34 Troponin T 0.050 ng/mL (0.00-0.029) H 04/06/20 00:31 NT-Pro-B Natriuret Pep 1809 pg/mL (0-900) H 04/05/20 11:34 Total Protein 7.3 g/dL (6.3-8.2) 04/05/20 11:34 Albumin 4.1 g/dL (3.9-5) 04/05/20 11:34 Albumin/Globulin Ratio 1.3 % 04/05/20 11:34 Triglycerides 95 mg/dL (2-149) 04/05/20 11:34 Cholesterol 161 mg/dL (50-199) 04/05/20 11:34 LDL Cholesterol Direct 111 mg/dL (50-130) 04/05/20 11:34 HDL Cholesterol 44 mg/dL (40-59) 04/05/20 11:34 Cholesterol/HDL Ratio 3.65 % 04/05/20 11:34 Urine Color Colorless (Yellow) 04/05/20 18:00 Urine Turbidity Clear (Clear) 04/05/20 18:00 Urine pH 6.0 (5.0-7.0) 04/05/20 18:00 Ur Specific [place] 1.005 (1.003-1.030) 04/05/20 18:00 Urine Protein 30 mg/dl mg/dL (Negative) 04/05/20 18:00 Urine Glucose (UA) Neg mg/dL (Negative) 04/05/20 18:00 Urine Ketones Neg mg/dL (Negative) 04/05/20 18:00 Urine Blood Sm (Negative) 04/05/20 18:00 Urine Nitrite Neg (Negative) 04/05/20 18:00 Ur Reducing Substances Not Reportable 04/05/20 18:00 Urine Bilirubin Neg (Negative) 04/05/20 18:00 Urine Ictotest Not Reportable 04/05/20 18:00 Urine Urobilinogen < 2.0 mg/dL (<2.0) 04/05/20 18:00 Ur Leukocyte Esterase Neg (Negative) 04/05/20 18:00 Urine WBC (Auto) < 1.0 /HPF (0.0-6.0) 04/05/20 18:00 Urine RBC (Auto) < 1.0 /HPF (0.0-6.0) 04/05/20 18:00 Nasal Screen MRSA (PCR) Negative (Negative) 04/06/20 06:00 Blood Type A POSITIVE 04/05/20 13:55 Antibody Screen Negative 04/05/20 13:55 Crossmatch See Detail 04/05/20 13:55 - Diagnostic Impressions Diagnostic Impressions: Echocardiogram 04/09/20 10:05 Transthoracic Echocardiogram Indication: SOB BP: 134/78 HR: 75 Conclusions *The left ventricular chamber size is mildly dilated. *Mild concentric left ventricular hypertrophy is observed. *Global left ventricular systolic function is mildly decreased. *The estimated ejection fraction is 40-45%. *The left atrium is mildly dilated. *There is moderate mitral regurgitation. *There is mild tricuspid regurgitation. *There is evidence of mild pulmonary hypertension. *The right ventricular systolic pressure is calculated at 31 mmHg. Findings Left Ventricle: The left ventricular chamber size is mildly dilated. Mild concentric left ventricular hypertrophy is observed. Global left ventricular systolic function is mildly decreased. The estimated ejection fraction is 40-45%. Left Atrium: The left atrium is mildly dilated. Right Ventricle: The right ventricular cavity size is normal. The right ventricular global systolic function is normal. Right Atrium: The right atrial cavity size is normal. Aortic Valve: The aortic valve is trileaflet. There is no evidence of aortic regurgitation. There is no evidence of aortic stenosis. Mitral Valve: The mitral valve leaflets appear normal. There is moderate mitral regurgitation. There is no evidence of mitral stenosis. Tricuspid Valve: There is mild tricuspid regurgitation. The right ventricular systolic pressure is calculated at 31 mmHg. There is evidence of mild pulmonary hypertension. Pericardium: There is no pericardial effusion. Aorta: There is no dilatation of the ascending aorta. There is no dilatation of the aortic root. Venous: The inferior vena cava appears normal in size. Measurements Chambers 2D Name Value Normal Range IVSd (2D) 1.07 cm (0.6 - 1.1) LVPWd (2D) 1 cm (0.6 - 1.1) LVIDd (2D) 5.84 cm (3.7 - 5.6) LVIDs (2D) 4.78 cm (2 - 3.8) LV FS (2D) 18.17 % - EF Teichholz (2D) 37.11 % - Ao root diameter (2D) 2.82 cm (2 - 3.7) Volumes/Mass Name Value Normal Range LA ESV SP 4CH (A/L) 30.39 ml - LA ESV SP 2CH (A/L) 46.67 ml - LA ESV BP (A/L) 37.73 ml - LA ESV BP (A/L) index 19.55 ml/m2 - LA ESV SP 4CH (MOD) 27.8 ml - LA ESV SP 2CH (MOD) 46.07 ml - LA ESV BP (MOD) 35.73 ml - LA ESV BP (MOD) index 18.51 ml/m2 - Diastolic/Systolic Function Name Value Normal Range MV E-wave Vmax 0.87 m/sec - MV deceleration time 258.82 msec - MV A-wave Vmax 1.06 m/sec - MV E:A ratio 0.82 ratio - Aortic Valve Name Value Normal Range AV Vmax 1.8 m/sec - AV VTI 28.98 cm - AV peak gradient 13.02 mmHg - AV mean gradient 5.87 mmHg - LVOT diameter 2.07 cm - LVOT Vmax 0.9 m/sec - LVOT VTI 16.24 cm - LVOT peak gradient 3.26 mmHg - LVOT mean gradient 1.87 mmHg - SV LVOT 54.62 ml - RAMY (continuity Vmax) 1.68 cm2 - RAMY (continuity VTI) 1.89 cm2 - Mitral Valve Name Value Normal Range MR Vmax 5.65 m/sec - Tricuspid Valve Name Value Normal Range TR Vmax 2.57 m/sec - TR peak gradient 26 mmHg - RAP 3 mmHg - RVSP 31 mmHg - Pulmonic Valve/Qp:Qs Name Value Normal Range PV Vmax 1.02 m/sec - PV peak gradient 4.17 mmHg - TX end-diastolic Vmax 1.02 m/sec - PV acceleration time 125.59 msec - Kumar/IV: Voiding Method Toilet IV Catheter Type [Right Peripheral IV Antecubital] Active Medications - Current Medications Current Medications: Generic Name Dose Route Start Last Admin Trade Name Freq PRN Reason Stop Dose Admin Acetaminophen 650 mg 04/05/20 14:29 Acetaminophen 325 Mg Tab PO Q4H PRN Pain MILD(1-3)/Fever >100.5/HENRY Aspirin 81 mg 04/06/20 10:00 04/10/20 11:33 Aspirin Ec 81 Mg Tab PO 81 mg QDAY TREY Administration Atorvastatin Calcium 40 mg 04/05/20 22:00 04/10/20 21:33 Atorvastatin 40 Mg Tab PO 40 mg QHS TREY Administration Carvedilol 6.25 mg 04/06/20 10:00 04/10/20 21:33 Carvedilol 6.25 Mg Tab PO 6.25 mg BID TREY Administration Clopidogrel Bisulfate 75 mg 04/06/20 10:00 04/10/20 11:33 Clopidogrel 75 Mg Tab PO 75 mg QDAY TREY Administration Dextrose 50 ml 04/05/20 14:29 Dextrose 50% In Water (25gm) 50 Ml Syringe IV Q30MIN PRN Hypoglycemia Protocol Doxazosin Mesylate 2 mg 04/05/20 22:00 04/10/20 21:33 Doxazosin 1 Mg Tab PO 2 mg QHS TREY Administration Furosemide 20 mg 04/11/20 10:00 Furosemide 20 Mg Tab PO QDAY TREY Heparin Sodium (Porcine) 5,000 unit 04/05/20 22:00 04/11/20 05:10 Heparin 5,000 Unit/1 Ml Vial SUB-Q 5,000 unit Q8HR TREY Administration Hydralazine HCl 20 mg 04/07/20 12:43 Hydralazine 20 Mg/1 Ml Inj IV Q2HR PRN Give if SBP>180 DBP>100 Insulin Human Regular 0 units 04/05/20 16:30 04/10/20 21:33 Insulin Regular, Human 100 Units/1 Ml SUB-Q Not Given ACHS [facility] Protocol Isosorbide Dinitrate/Hydralazine 1 each 04/05/20 22:00 04/11/20 05:10 Isosorb Dinit/Hydralazine 20-37.5mg Tab PO Not Given Q8HR TREY Latanoprost 1 drops 04/10/20 18:00 04/10/20 17:47 Latanoprost 0.005% Ophth Soln 2.5 Ml OU Not Given QPM TREY Magnesium Hydroxide 30 ml 04/05/20 14:29 04/07/20 09:29 Magnesium Hydroxide (Mom) Oral Liqd Udc PO 30 ml Q4H PRN Administration Constipation Multivitamins/Minerals 1 each 04/06/20 10:00 04/10/20 11:33 Multivitamins,Ther W-Minerals Tab PO 1 each QDAY TREY Administration Ondansetron HCl 4 mg 04/05/20 14:29 Ondansetron 4 Mg/2 Ml Inj IV Q8H PRN Nausea And Vomiting Pantoprazole Sodium 40 mg 04/06/20 20:00 04/10/20 11:33 Pantoprazole 40 Mg Tab PO 40 mg QDAC TREY Administration Sodium Chloride 10 ml 04/05/20 22:00 04/10/20 21:34 Sodium Chloride 0.9% 10 Ml Flush Syringe IV 10 ml BID TREY Administration Sodium Chloride 10 ml 04/05/20 14:29 04/06/20 06:12 Sodium Chloride 0.9% 10 Ml Flush Syringe IV 10 ml PRN PRN Administration LINE FLUSH Spironolactone 25 mg 04/06/20 10:00 04/10/20 11:33 Spironolactone 25 Mg Tab PO 25 mg QDAY TREY Administration Nutrition/Malnutrition Assess - Dietary Evaluation Nutrition/Malnutrition Findings: Nutrition Notes Start: 04/06/20 11:39 Freq: Status: Active Protocol: Document 04/06/20 11:39 MARI (Rec: 04/06/20 11:40 MARI [id number]) Co-Sign 04/06/20 11:39 LP Nutrition Notes Need for Assessment generated from: MD Order Initial or Follow up Brief Note Current Diagnosis Coronary Artery Disease, Hypertension,Heart Failure Other Pertinent Diagnosis Anemia, PMH: colon CA Current Diet Cardiac with Consistent CHO Subjective/Other Information MD consult for diet education. Pt denied education at this time. Nutrition Intervention Revisit per MD consult or patient Sign Off request:
--- NOTE | 2020-04-11 12:41 | Progress Note ---
Assessment and Plan - Patient Problems (1) Acute kidney injury Current Visit: Yes Status: Acute Plan to address problem: most likely secondary to pre-renal azotemia in the setting of IV diuresis, check UA, urine lytes, urine P/C ratio. Renal US showed multiple b/l cysts, otherwise no hydronephrosis seen. Diuretics was changed to lasix 20mg po qd. cont supportive care for MICHAEL avoid further nephrotoxins, NSAIDs, IV contrast. Will monitor lytes closely and make further recommendations (2) Anemia in chronic illness Current Visit: Yes Status: Acute Plan to address problem: s/p 1 PRBC transfusion, Hb stable > 8.follow GI recommendations (3) CHF (congestive heart failure) Current Visit: Yes Status: Acute Qualifiers: Plan to address problem: reinforced Na and 1.5L/day fluid restriction. cont BB, bidil and diuresis with po lasix. MIKE-I on hold d/t worsening renal function. (4) Hypertensive chronic kidney disease with stage 1 through stage 4 chronic kidney disease, or unspecified chronic kidney disease Current Visit: Yes Status: Acute Plan to address problem: monitor BP on current meds (5) Chronic kidney disease, stage 3a Current Visit: Yes Status: Acute Plan to address problem: 2/2 presumed hypertensive nephrosclerosis. cont supportive care, avoid ne phrotoxins, NSAIDs, IV contrast. No acute indication for renal replacement therapy at present Subjective Date of service: 04/11/20 Principal diagnosis: Symptomatic Anemia Interval history: pt awake, alert in no acute distress Objective - Vital Signs Vital signs: Vital Signs - 12hr 04/11/20 04/11/20 04:11 05:10 Temperature 98.5 F Pulse Rate 74 74 Respiratory 17 Rate Blood Pressure 119/57 119/57 O2 Sat by Pulse 95 Oximetry - General Appearance General appearance: well-developed, well-nourished, appears stated age EENT: ATNC, PERRL, mucous membranes moist Neck: no JVD Respiratory: Present: Clear to Ascultation Cardiology: regular, S1S2 Gastrointestinal: normoactive bowel sounds Integumentary: no rash Neurologic: no focal deficit, alert and oriented x3, strength 5/5, CN 3-12 intact Psychiatric: mood/affect appropriate - Lab 04/11/20 05:18 04/11/20 05:18 Most recent lab results Calcium 9.8 mg/dL (8.4-10.2) 04/11/20 05:18 Magnesium 1.80 mg/dL (1.7-2.3) 04/06/20 00:31 Medications & Allergies - Medications Allergies/Adverse Reactions: Allergies No Known Allergies Allergy (Verified 04/05/20 10:58) Home Medications: Home Medications Medication Instructions Recorded Confirmed Last Taken Type Iron Fum,Ps/Folic/Bcomp,C No.9 1 each PO DAILY 04/25/16 04/07/20 04/07/20 11:21 History [Integra Plus Capsule] Sildenafil Citrate [Viagra] 100 mg PO QDAY PRN 04/25/16 04/07/20 Unknown History Sitagliptin Phosphate [Januvia] 50 mg PO DAILY 04/25/16 04/07/20 04/25/16 History hydrALAZINE [Apresoline TAB] 25 mg PO Q12HR 04/25/16 04/07/20 04/07/20 11:20 History valACYclovir [Valtrex] 1,000 mg PO TID 5 Days tablet 04/26/16 04/07/20 Unknown Rx bisacodyL [Dulcolax suppos] 10 mg OR DAILY PRN #6 supp.rect 12/25/18 04/07/20 Unknown Rx Aspirin EC [Halfprin EC] 81 mg PO QDAY #30 tablet 10/22/19 04/07/20 04/07/20 11:21 Rx AtorvaSTATin [Lipitor] 40 mg PO QHS #30 tablet 10/22/19 04/07/20 04/07/20 11:21 Rx Clopidogrel [Plavix] 75 mg PO QDAY #30 tablet 10/22/19 04/07/20 04/07/20 11:21 Rx Dorzolamide HCl/Timolol Maleat 10 ml OP Q12HR 30 Days drops 10/22/19 04/07/20 Unknown Rx [Cosopt Eye Drops] Doxazosin [Cardura] 2 mg PO QHS #30 tablet 10/22/19 04/07/20 Unknown Rx Isosorb Dinit/Hydralazine [Bidil 1 each PO Q8HR #30 tablet 10/22/19 04/07/20 04/07/20 11:20 Rx 20/37.5MG] Pantoprazole [Protonix TAB] 40 mg PO QDAC #30 tablet 04/11/20 Unknown Rx carvediloL [Coreg] 6.25 mg PO BID #60 tablet 04/11/20 Unknown Rx Active Medications: Generic Name Dose Route Start Last Admin Trade Name Freq PRN Reason Stop Dose Admin Acetaminophen 650 mg 04/05/20 14:29 Acetaminophen 325 Mg Tab PO Q4H PRN Pain MILD(1-3)/Fever >100.5/HENRY Aspirin 81 mg 04/06/20 10:00 04/10/20 11:33 Aspirin Ec 81 Mg Tab PO 81 mg QDAY TREY Administration Atorvastatin Calcium 40 mg 04/05/20 22:00 04/10/20 21:33 Atorvastatin 40 Mg Tab PO 40 mg QHS TREY Administration Carvedilol 6.25 mg 04/06/20 10:00 04/10/20 21:33 Carvedilol 6.25 Mg Tab PO 6.25 mg BID TREY Administration Clopidogrel Bisulfate 75 mg 04/06/20 10:00 04/10/20 11:33 Clopidogrel 75 Mg Tab PO 75 mg QDAY [facility] Administration Dextrose 50 ml 04/05/20 14:29 Dextrose 50% In Water (25gm) 50 Ml Syringe IV Q30MIN PRN Hypoglycemia Protocol Doxazosin Mesylate 2 mg 04/05/20 22:00 04/10/20 21:33 Doxazosin 1 Mg Tab PO 2 mg QHS [facility] Administration Furosemide 20 mg 04/11/20 10:00 Furosemide 20 Mg Tab PO QDAY [facility] Heparin Sodium (Porcine) 5,000 unit 04/05/20 22:00 04/11/20 05:10 Heparin 5,000 Unit/1 Ml Vial SUB-Q 5,000 unit Q8HR [facility] Administration Hydralazine HCl 20 mg 04/07/20 12:43 Hydralazine 20 Mg/1 Ml Inj IV Q2HR PRN Give if SBP>180 DBP>100 Insulin Human Regular 0 units 04/05/20 16:30 04/10/20 21:33 Insulin Regular, Human 100 Units/1 Ml SUB-Q Not Given ACHS [facility] Protocol Isosorbide Dinitrate/Hydralazine 1 each 04/05/20 22:00 04/11/20 05:10 Isosorb Dinit/Hydralazine 20-37.5mg Tab PO Not Given Q8HR [facility] Latanoprost 1 drops 04/10/20 18:00 04/10/20 17:47 Latanoprost 0.005% Ophth Soln 2.5 Ml OU Not Given QPM TREY Magnesium Hydroxide 30 ml 04/05/20 14:29 04/07/20 09:29 Magnesium Hydroxide (Mom) Oral Liqd Udc PO 30 ml Q4H PRN Administration Constipation Multivitamins/Minerals 1 each 04/06/20 10:00 04/10/20 11:33 Multivitamins,Ther W-Minerals Tab PO 1 each QDAY TREY Administration Ondansetron HCl 4 mg 04/05/20 14:29 Ondansetron 4 Mg/2 Ml Inj IV Q8H PRN Nausea And Vomiting Pantoprazole Sodium 40 mg 04/06/20 20:00 04/10/20 11:33 Pantoprazole 40 Mg Tab PO 40 mg QDAC TREY Administration Sodium Chloride 10 ml 04/05/20 22:00 04/10/20 21:34 Sodium Chloride 0.9% 10 Ml Flush Syringe IV 10 ml BID TREY Administration Sodium Chloride 10 ml 04/05/20 14:29 04/06/20 06:12 Sodium Chloride 0.9% 10 Ml Flush Syringe IV 10 ml PRN PRN Administration LINE FLUSH Spironolactone 25 mg 04/06/20 10:00 04/10/20 11:33 Spironolactone 25 Mg Tab PO 25 mg QDAY TREY Administration
[2020-04-11] MEDS ORDERED: SODIUM CHLORIDE 0.9% 1000 ML 1,000 ML IV SCH (13:30)
[2020-04-11] MEDS ORDERED: propofoL 200 MG/20 ML VIAL IV ONE (14:30)
[2020-04-11] MEDS ORDERED: LIDOCAINE MPF (2%) 20 MG/1 ML VIAL 5 ML ONE (14:30)
--- NOTE | 2020-04-11 14:33 | Anesthesia Day of Surgery ---
Anesthesia Day of Surgery - Day of Surgery Patient Examined: Yes Patient H&P Reviewed: Yes Patient is NPO: Yes Cardiac Clearance: Yes
--- NOTE | 2020-04-11 14:33 | Anesthesia Consultation ---
Anesthesia Consult and Med Hx Date of service: 04/11/20 - Airway Anesthetic Teeth Evaluation: Good ROM Head & Neck: Adequate Mental/Hyoid Distance: Adequate Mallampati Class: Class III Intubation Access Assessment: Possibly Difficult - Pulmonary Exam CTA: Yes - Cardiac Exam Cardiac Exam: RRR - Pre-Operative Health Status ASA Pre-Surgery Classification: ASA3 Proposed Anesthetic Plan: MAC - Pulmonary Hx Smoking: Yes (quit 10 yrs ago) Hx Respiratory Symptoms: No - Cardiovascular System Hx Hypertension: Yes Hx Coronary Artery Disease: Yes Hx Heart Attack/AMI: No (EF 40-45%) Hx Percutaneous Transluminal Coronary Angioplasty (PTCA): Yes (stent placed 10/2019; currently on ASA/plavix) Hx Cardia Arrhythmia: No - Central Nervous System CVA: No - Gastrointestinal Hx Gastroesophageal Reflux Disease: Yes - Endocrine Hx Renal Disease: Yes (MICHAEL) Hx Liver Disease: No Hx Insulin Dependent Diabetes: No Hx Non-Insulin Dependent Diabetes: No Hx Thyroid Disease: No - Hematic Hx Anemia: Yes - Other Systems Hx Cancer: Yes (hx colon ca s/p resection ) Hx Obesity: Yes (BMI 31) - Additional Comments Anesthesia Medical History Comments: No hx anesthetic complications.
[2020-04-11] MEDS ORDERED: SODIUM CHLORIDE 0.9% 1000 ML IV SOLN ONE (14:42)
--- NOTE | 2020-04-11 15:09 | Post Operative Note ---
Pre-op diagnosis: Symptomatic Anemia Post-op diagnosis: other (, R hemicolectomy) Findings: 1. 4mm superficial gastric ulcer, antrum (cold bx) 2. Normal duodenum/esophagus 3. Good prep in colon without blood 4. R hemicolectomy (healthy anastamosis) 5. Grade II Internal Hemorrhoids Procedure: EGD with cold biopsy; Colonoscopy Anesthesia: MAC Surgeon: HWOIE ETIENNE Estimated blood loss: minimal Pathology: list (1. Gastric Antrum Ulcer) Specimen disposition: to lab Condition: stable Disposition: floor (Recs: 1. Ulcer low risk to re-bleed; OK to discharge home. 2. Protonix QD therapy. 3. OK to continue ASA cardiac (and plavix, if on), but avoid all other NSAIDs. 4. Daily MVI therapy. 5. F/U in the clinic in 3-5 weeks to recheck labs.)
--- NOTE | 2020-04-11 15:18 | Operative Report ---
PROCEDURES PERFORMED: Esophagogastroduodenoscopy with cold biopsy, as well as colonoscopy. PREOPERATIVE DIAGNOSES: Symptomatic anemia, history of gastric ulcer, history of colon cancer. POSTOPERATIVE DIAGNOSES: Gastric ulcer, prior colon surgery, hemorrhoids. ENDOSCOPIST: Pradip Subramanian M.D. INSTRUMENT: Olympus video endoscope. MEDICATIONS: MAC anesthesia by [facility]. COMPLICATIONS: No apparent complications. ESTIMATED BLOOD LOSS: Minimal. SPECIMENS: Gastric antrum ulcer. IMPLANTS: None. ASSISTANTS: None. CONDITION AT COMPLETION: Stable. TECHNIQUE: The patient was informed of the risks and benefits of the procedure. He signed the informed consent to proceed. He was placed in the left lateral decubitus position. The above sedative medications were given. His vital signs remained stable throughout the procedure. The instrument was advanced from the mouth to the second portion of the duodenum under direct visualization. At that point, the bowel was insufflated and the endoscope was slowly withdrawn. The bed was then rotated and the colonoscope was advanced from the anus to the ileocolonic anastomosis under direct visualization. At that point, the bowel was insufflated and the endoscope was slowly withdrawn. The quality of preparation was good. FINDINGS: 1. A 4 mm superficial gastric ulcer in the antrum of the stomach; cold biopsies taken around the margin, but it did not appear to be malignant. 2. Otherwise, normal duodenum, esophagus, and rest of the stomach. 3. Good preparation of the colon without blood clots or active bleeding. 4. Evidence of a prior right hemicolectomy with a healthy-appearing ileocolonic anastomosis. 5. Grade 2 internal hemorrhoids. RECOMMENDATIONS: 1. The ulcer would be considered low risk to rebleed since no visible vessel was present; it is okay to discharge the patient home today. 2. Protonix daily therapy. 3. Okay to continue daily aspirin and Plavix, but I would avoid all other nonsteroidal anti-inflammatory drugs. 4. Daily multivitamin therapy. 5. Follow up in the clinic in 3-5 weeks to recheck labs. JOB# [id number] JACINTA/JULEE
[2020-04-11] MEDS: SPIRONOLACTONE 25 MG TAB PO SCH (15:53)
[2020-04-11] MEDS: carvediloL 6.25 MG TAB PO SCH (15:54)
[2020-04-11] MEDS: MULTIVITAMINS,THER W-MINERALS TAB PO SCH (15:54)
[2020-04-11] MEDS: PANTOPRAZOLE 40 MG TAB PO SCH (15:54)
[2020-04-11 15:57] VITALS: BP 181/84
[2020-04-11] MEDS: ASPIRIN EC 81 MG TAB PO SCH (16:05)
[2020-04-11] MEDS: CLOPIDOGREL 75 MG TAB PO SCH (16:05)
--- NOTE | 2020-04-11 17:48 | Post Anesthesia Evaluation ---
- Post Anesthesia Evaluation Patient Participated: Yes Airway Patent: Yes Stable Respiratory Function: Yes Nausea/Vomiting: No Temp > 96.8F: Yes Pain Manageable: Yes Adequeate Hydration: Yes Anesthesia Complications: No
--- NOTE | 2020-04-12 11:50 | Discharge Summary ---
Providers - Providers Date of Admission: 04/07/20 12:13 Attending physician: VENECIA ARCINIEGA MD 04/05/20 13:05 Consult to Physician [CONS] Urgent Comment: Consulting Provider: HUNTER DE LOS SANTOS Physician Instructions: Reason For Exam: chf 04/05/20 14:31 Consult to Dietitian/Nutrition [CONS] Routine Physician Instructions: Reason For Exam: Reason for Consult: Diet education 04/06/20 13:57 Consult to Physician [CONS] Routine Comment: Consulting Provider: PRATIK JUAREZ Physician Instructions: Reason For Exam: microcytic anemia 04/09/20 09:59 Physical Therapy Evaluation and Treat [CONS] Routine Comment: Reason For Exam: debility Date of last referral: 04/09/20 04/09/20 10:00 Occupational Therapy Evaluate and Treat [CONS] Routine Comment: Reason For Exam: debillity 04/10/20 09:53 Consult to Physician [CONS] Routine Comment: Consulting Provider: RAMON KHOURY Physician Instructions: Reason For Exam: MICHAEL Primary care physician: ATTENDING ANESTHESIOLOGIST Hospitalization Condition: Good Disposition: DC-01 TO HOME OR SELFCARE Exam - Constitutional Vitals: Temp Pulse Resp BP Pulse Ox 97.7 F 76 24 181/84 97 04/11/20 15:06 04/11/20 16:03 04/11/20 15:25 04/11/20 16:03 04/11/20 15:25 Plan Follow up with: HUNTER DE LOS SANTOS MD [Staff Physician] - 7 Days HOWIE ETIENNE MD [Staff Physician] - 7 Days PRIMARY CAREMD [Primary Care Provider] - 3-5 Days Prescriptions: carvediloL [Coreg] 6.25 mg PO BID #60 tablet Pantoprazole [Protonix TAB] 40 mg PO QDAC #30 tablet
== END 2020-04-11 17:40 | disposition home or self-care (01) | DRG 291 ==
LOC: ED 10:49 → 4A 14:14 → OBSVTOIN 04-07 12:13
PROVIDERS: ADMIT Internal Medicine Geriatric Medicine; ATTEND Internal Medicine
PROC: 30233N1 Transfusion of Nonautologous Red Blood Cells into Peripheral Vein, Percutaneous Approach (ICD-10-PCS; 2020-04-05)
PROC: 0DB68ZX Excision of Stomach, Via Natural or Artificial Opening Endoscopic, Diagnostic (ICD-10-PCS; principal; 2020-04-11)
PROC: 0DJD8ZZ Inspection of Lower Intestinal Tract, Via Natural or Artificial Opening Endoscopic (ICD-10-PCS; 2020-04-11)
DX: I13.0 Hypertensive heart and chronic kidney disease with heart failure and stage 1 through stage 4 chronic kidney disease, or unspecified chronic kidney disease (principal); I50.23 Acute on chronic systolic (congestive) heart failure; N17.0 Acute kidney failure with tubular necrosis; I47.1 Supraventricular tachycardia; I45.2 Bifascicular block; I25.10 Atherosclerotic heart disease of native coronary artery without angina pectoris; I25.5 Ischemic cardiomyopathy; E11.22 Type 2 diabetes mellitus with diabetic chronic kidney disease; D63.8 Anemia in other chronic diseases classified elsewhere; K21.9 Gastro-esophageal reflux disease without esophagitis; D47.3 Essential (hemorrhagic) thrombocythemia; N18.32 Chronic kidney disease, stage 3b; K25.9 Gastric ulcer, unspecified as acute or chronic, without hemorrhage or perforation; Z85.038 Personal history of other malignant neoplasm of large intestine; Z79.899 Other long term (current) drug therapy; Z87.891 Personal history of nicotine dependence; Z95.5 Presence of coronary angioplasty implant and graft; K64.8 Other hemorrhoids
CPT/HCPCS: 36415; 71046; 76770; 78452; 80048; 80053; 80061; 81001; 82270; 82550; 82553; 82728; 82962; 83550; 83735; 83880; 84484; 85007; 85014; 85018; 85025; 85027; 85610; 85730; 86850; 86900; 86901; 86920; 87641; 88305; 88342; 93005; 93017; 93306; 96374; 96375; 96376; G0378; A9270-GY; A9502; J0360; J1644; J1815; J1940; J2704; J2785; J7030; J7040; P9016

== ENCOUNTER 2021-10-03 12:29 | Emergency (ER) | payer MEDICARE ==
--- NOTE | 2021-10-03 13:18 | Emergency Department Report ---
HPI - General Chief Complaint: Chest Pain PUI?: No Time Seen by Provider: 10/03/21 12:47 - HPI HPI: 71-year-old male with multiple medical comorbidities brought in by EMS from his primary care doctor's office for evaluation of left-sided chest pain. Patient states on Thursday, 4 days ago, he was turning over in his bed and he fell on the ground, hitting his chest wall on the floor. He states immediately since then he has been having persistent chest pain. Chest pain only occurs with touch or with movement of his left upper extremity or his trunk. It is alleviated by rest. He describes the chest pain as a "soreness." Patient states he is a and has children living in [facility] but did not call them to provide him with pain medication. He states he does not have access to acetaminophen or ibuprofen at home and has not taken any medications for his pain. He states "I thought I would just wait it out since I had an appointment with my doctor today. I saw my doctor today and told him I was having chest pain and he called EMS. I did tell him that I fell and hit my chest on the ground." Patient received nitroglycerin x2 as well as full dose aspirin by EMS and reports mild improvement in pain. He denies any difficulty breathing or shortness of breath no lightheadedness or dizziness no syncope. He denies any preceding symptoms or any other symptoms occurring after his fall except aforementioned chest pain. Patient denies any cough or URI symptoms. Pain currently 4 out of 10. ED Past Medical Hx - Past Medical History Previous Medical History?: Yes Hx Hypertension: Yes Hx Heart Attack/AMI: No (EF 40-45%) Hx Congestive Heart Failure: Yes Hx Diabetes: Yes Hx Deep Vein Thrombosis: No Hx Pulmonary Embolism: No Hx GERD: No Hx Liver Disease: No Hx Renal Disease: Yes (MICHAEL) Hx Sickle Cell Disease: No Hx Arthritis: No Hx Seizures: No Hx Kidney Stones: No Hx Asthma: No Hx COPD: No Hx Tuberculosis: No Hx Dementia: No Hx HIV: No Additional medical history: COLON CANCER/ANEMIA/ULCER - Surgical History Hx Coronary Stent: No Hx Open Heart Surgery: No Hx Pacemaker: No Hx Internal Defibrillator: No Hx Cholecystectomy: No Hx Appendectomy: No Hx Breast Surgery: No Additional Surgical History: COLON REMOVED - Social History Smoking Status: Never Smoker - Medications Home Medications: Home Medications Medication Instructions Recorded Confirmed Last Taken Type Furosemide [Lasix] 40 mg PO QDAY 04/03/21 07/14/21 07/13/21 09:00 History Latanoprost 0.005% 1 drop OS QHS 04/03/21 07/14/21 07/13/21 09:00 History methOCARBAMOL [Robaxin TAB] 500 mg PO QDAY 04/03/21 07/14/21 07/13/21 09:00 History traMADoL [Ultram 50 MG tab] 50 mg PO BID PRN 04/03/21 07/14/21 07/13/21 09:00 History Brimonidine Tartrate [Brimonidine 1 drop OU TID 04/04/21 07/14/21 07/12/21 20:00 History Tartrate 0.2%] Aspirin EC [Halfprin EC] 81 mg PO QDAY #30 tablet 07/19/21 Unknown Rx AtorvaSTATin [Lipitor] 40 mg PO QHS #30 tablet 07/19/21 Unknown Rx Clopidogrel [Plavix] 75 mg PO QDAY #30 tablet 07/19/21 Unknown Rx Esomeprazole Magnesium [Nexium 20 mg PO QDAY #30 07/19/21 Unknown Rx 24Hr] Furosemide [Lasix TAB] 40 mg PO QDAY #30 tablet 07/19/21 Unknown Rx amLODIPine 10 mg PO DAILY #30 07/19/21 Unknown Rx carvediloL [Coreg] 6.25 mg PO QDAY #60 07/19/21 Unknown Rx Acetaminophen 500 mg PO Q6H 7 Days #30 cap 10/03/21 Unknown Rx Lidocaine [Lidoderm] 1 each TP Q12H 7 Days #14 patch 10/03/21 Unknown Rx ED Review of Systems ROS: Stated complaint: CHEST PAIN Other details as noted in HPI Comment: All other systems reviewed and negative Constitutional: no symptoms reported Eyes: denies: eye pain, eye discharge, vision change ENT: denies: ear pain, throat pain, dental pain, hearing loss, epistaxis Respiratory: denies: see HPI, cough, orthopnea, shortness of breath, SOB with exertion, SOB at rest, stridor Cardiovascular: chest pain, other (Left anterior chest wall pain secondary to fall on ground 4 days ago). denies: palpitations, dyspnea on exertion, orthopnea, edema, syncope, paroxysmal nocturnal dyspnea Gastrointestinal: denies: as per HPI, abdominal pain, nausea, vomiting, diarrhea, constipation, hematemesis, melena, hematochezia Genitourinary: denies: urgency, dysuria, frequency, hematuria, discharge, testicular pain, testicular mass, other Musculoskeletal: denies: back pain, joint swelling, arthralgia Skin: denies: rash, lesions, change in color, change in hair/nails, pruritus Neurological: denies: headache, weakness, numbness, paresthesias, confusion, abnormal gait, vertigo, other Psychiatric: denies: anxiety, depression, auditory hallucinations, visual hallucinations, homicidal thoughts, suicidal thoughts Hematological/Lymphatic: denies: easy bleeding, easy bruising, swollen glands Physical Exam - Physical Exam Vital Signs: Vital Signs 10/03/21 12:32 Temperature 98.6 F Pulse Rate 96 H Respiratory 16 Rate Blood Pressure 134/78 [Left] O2 Sat by Pulse 96 Oximetry General: Gen: pt is well appearing, no acute distress HEENT: Normocephalic atraumatic pupils equally round and reactive to light extraocular muscles intact sclera anicteric Neck: Full range of motion, no midline spinal tenderness palpation, no JVD, no carotid bruits, no nuchal rigidity CVS: S1-S2 regular rate and rhythm with no gallops rubs or murmurs, moderate left anterior chest wall tenderness to palpation reproduced on exam, no ecchymosis no bleeding no lacerations no crepitus no overt evidence of trauma or infection, skin overlying chest wall is unremarkable Pulmonary: Clear to auscultation bilaterally, no wheezes rales or rhonchi Abdomen: Soft nondistended nontender no guarding or rebound tenderness, no palpable deformities or step-offs, normal active bowel sounds, no hepatosplenomegaly, no pulsatile masses : Deferred Extremities: No cyanosis no clubbing no edema, intact distal peripheral pulses, Integumentary: Skin normal, no petechia no purpura no abscess no lacerations no evidence of trauma no evidence of infection Neuro: Patient is awake alert and oriented to person place time situation, mentating well, cranial nerves II through XII intact, no focal neurodeficits, sensation grossly tact Psych: Calm cooperative, mood affect normal ED Course Vital Signs 10/03/21 12:32 Temperature 98.6 F Pulse Rate 96 H Respiratory 16 Rate Blood Pressure 134/78 [Left] O2 Sat by Pulse 96 Oximetry - Reevaluation(s) Reevaluation #1: 10/03/21 13:17 Patient reassessed. He remains comfortable and well-appearing, he is in no di stress Reevaluation #2: 10/03/21 15:41 I called the chemistry lab to determine the etiology of the delay in the patient's potassium level. Was informed by the technician assistant that the patient's comprehensive metabolic panel has completely hemolyzed and the current documented lab values are incorrect. She advising that a redraw be obtained. She states she had not called the ER "because I was too busy." ED Medical Decision Making - Lab Data Result diagrams: 10/03/21 13:57 10/03/21 18:54 - EKG Data -: EKG Interpreted by Me EKG shows normal: sinus rhythm Rate: normal - EKG Data When compared to previous EKG there are: no significant change Interpretation: no acute changes 10/03/21 13:17 Ventricular rate 67 bpm. P waves are present and proceed every QRS complex. Patient has right bundle branch block and left anterior fascicular block. No ectopic. No arrhythmia. No ST segment depressions elevations. Patient has multiple prior EKGs dated back to July 2021 at which time the patient had sinus tachycardia and multiple premature ventricular complexes. Further review of the patient's prior EKG demonstrates that he had an EKG uploaded in our system on April 02, 2021 which is unchanged in morphology and character when compared to today's EKG. EKG unchanged. - Radiology Data Radiology results: report reviewed - Medical Decision Making 71-year-old male with multiple medical comorbidities presents for traumatic chest wall pain and complaints of chest pain status post falling from a bed several days ago. Vital signs stable. EKG within the patient's documented baseline. Patient has chronically elevated creatinine today which is within his baseline and troponin levels are within the patient's chronically elevated troponin baseline level. Chest x-ray grossly unremarkable. He has no evidence of any acute life-threatening pathology at this time. Patient stable for discharge to home. Critical care attestation.: If time is entered above; I have spent that time in minutes in the direct care of this critically ill patient, excluding procedure time. ED Disposition Clinical Impression: Chest pain, Chest wall soft tissue injury Disposition: HOME / SELF CARE / HOMELESS Is pt being admited?: No Does the pt Need Aspirin: No Condition: Stable Instructions: Nonspecific Chest Pain, Adult Additional Instructions: Take acetaminophen as needed for pain. You may also use lidoderm patches for additional pain management. Contact your primary care doctor at home for reassessment and further management of your pain. Please do this within the next 1 to 2 days. Observe your symptoms very carefully. Return to the nearest emergency d epartment as soon as possible if you develop severe or worsening pain, shortness of breath, difficulty breathing, or if any other new worrisome symptoms develop Prescriptions: Acetaminophen 500 mg PO Q6H 7 Days #30 cap Lidocaine [Lidoderm] 1 each TP Q12H 7 Days #14 patch Referrals: DEVIN RIOS MD [Primary Care Provider] - 3-5 Days
--- NOTE | 2021-10-03 13:40 | XRay Report ---
CHEST 1 VIEW 10/03/2021 12:26 PM INDICATION / CLINICAL INFORMATION: L sided chest pain s/p fall from bed 4 days ago. COMPARISON: One view of the chest from 07/14/2021. FINDINGS: SUPPORT DEVICES: None. HEART / MEDIASTINUM: Previously seen cardiomegaly has improved. Central vascular congestion has resol anny. LUNGS / PLEURA: Previously suspected interstitial edema has resolved. The right hemidiaphragm remains elevated with probable right basilar atelectasis versus scarring. No new significant pulmonary abnor mality. No significant pleural effusion. No pneumothorax. ADDITIONAL FINDINGS: No significant additional findings. IMPRESSION: 1. No acute abnormality of the chest. 2. Additional findings as above. Signer Name: Doug Castelan MD Signed: 10/03/2021 1:36 PM Workstation Name: [id number]
[2021-10-03 14:56] LABS: Basophils # (Auto) 0.2 K/mm3 (0.0-0.1); Basophils % (Auto) 1.4 % (0.0-1.8); Eosinophils # (Auto) 1.6 K/mm3 (0.0-0.4); Eosinophils % (Auto) 12.7 % (0.0-4.3); Hematocrit 45.4 % (35.5-45.6); Hemoglobin 14.4 gm/dl (11.8-15.2); Lymphocytes # (Auto) 1.9 K/mm3 (1.2-5.4); Lymphocytes % (Auto) 15.1 % (13.4-35.0); Mean Corpuscular HGB Conc 32 % (32-34); Mean Corpuscular Volume 88 fl (84-94); Monocytes # (Auto) 1.2 K/mm3 (0.0-0.8); Monocytes % (Auto) 9.1 % (0.0-7.3); Platelet Count 783 K/mm3 (140-440); Red Blood Count 5.16 M/mm3 (3.65-5.03); Red Cell Distribution Width 21.2 % (13.2-15.2)
[2021-10-03] MEDS ORDERED: FUROSEMIDE 40 MG/4 ML INJ IV ONE (15:24)
[2021-10-03 15:41] LABS: Alanine Aminotransferase TNR units/L (7-56); BUN/Creatinine Ratio TNR; Blood Urea Nitrogen TNR mg/dL (9-20); Calcium TNR mg/dL (8.4-10.2)
[2021-10-03 15:42] LABS: Albumin TNR g/dL (3.9-5); HDL Cholesterol TNR mg/dL (40-59); LDL Cholesterol,Direct TNR mg/dL (50-130)
[2021-10-03 15:43] LABS: Chol/HDL Ratio TNR %; Hemolysis Index TNR
[2021-10-03 17:08] LABS: Albumin 4.6 g/dL (3.9-5); Calcium 11.2 mg/dL (8.4-10.2)
[2021-10-03 18:54] VITALS: BP 147/125
--- NOTE | 2021-10-04 11:17 | Electrocardiograph Report ---
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
== END 2021-10-03 20:48 | disposition home or self-care (01) ==
LOC: ED 12:29
DX: S09.93XA Unspecified injury of face, initial encounter (principal); R07.9 Chest pain, unspecified; E11.9 Type 2 diabetes mellitus without complications; I10 Essential (primary) hypertension; X58.XXXA Exposure to other specified factors, initial encounter; Y93.89 Activity, other specified; Y92.89 Other specified places as the place of occurrence of the external cause; Y99.8 Other external cause status
CPT/HCPCS: 36415; 71045; 80053; 80061; 84132; 84484; 85025; 93005; 96374; 99284; J1940